=== PATIENT | male | born 1935 | race Hispanic/Latino ===

== ENCOUNTER 2017-09-28 09:38 | Outpatient (CLI) | payer MEDICARE ==
--- NOTE | 2017-09-28 11:44 | Cat Scan Report ---
CT chest without contrast: Chronic lung disease for followup of previously identified pulmonary nodules. Transverse images were performed through the chest with coronal and sagittal 2-D reformatted images. Comparison made to prior exam in October 2016. Subpleural nodule identified on prior examination appears unchanged currently identified on image 47. On image 41 there is a new 9.2 mm right subpleural nodule. No other nodules identified. I do not appreciate nodule involving minor fissure described on prior exam. Significant lower lobe interstitial lung disease is again noted and may be slightly more prominent than seen on prior examination. Bilateral peripheral upper lobe blebs are identified bilaterally being significantly worse on the left. No significant pleural disease. No significant hilar or mediastinal adenopathy. There are coronary vascular and aortic calcifications. These findings are all generally unchanged. Sections carried into the upper abdomen partially identified a gallbladder which contains numerous gallstones as present on prior scan. Impressions: 1. Stable subpleural nodule described on prior exam. 2. New subpleural nodule on current exam. No overtly suspicious characteristics. 3. Chronic interstitial lung disease which may have slightly progressed. 4. Cholelithiasis.
== END 2017-09-28 09:39 | disposition home or self-care (01) ==
LOC: CT 09:38
PROVIDERS: ATTEND Specialist
DX: J84.9 Interstitial pulmonary disease, unspecified (principal); R91.8 Other nonspecific abnormal finding of lung field; K80.20 Calculus of gallbladder without cholecystitis without obstruction; I25.10 Atherosclerotic heart disease of native coronary artery without angina pectoris; I73.9 Peripheral vascular disease, unspecified; I10 Essential (primary) hypertension; E78.5 Hyperlipidemia, unspecified; J44.9 Chronic obstructive pulmonary disease, unspecified; I48.2 Chronic atrial fibrillation; Z87.891 Personal history of nicotine dependence
CPT/HCPCS: 71250

== ENCOUNTER 2017-12-17 04:17 | Emergency (ER) | payer MEDICARE ==
[2017-12-17 05:43] LABS: Basophils % (Auto) 0.4 % (0.0-1.8); Eosinophils # (Auto) 0.1 K/mm3 (0.0-0.4); Eosinophils % (Auto) 1.5 % (0.0-4.3); Hematocrit 40.7 % (35.5-45.6); Hemoglobin 14.1 gm/dl (11.8-15.2); Lymphocytes # (Auto) 1.1 K/mm3 (1.2-5.4); Lymphocytes % (Auto) 11.6 % (13.4-35.0); Mean Corpuscular HGB Conc 35 % (32-34); Mean Corpuscular Hemoglobin 37 pg (28-32); Mean Corpuscular Volume 107 fl (84-94); Monocytes # (Auto) 0.9 K/mm3 (0.0-0.8); Monocytes % (Auto) 9.6 % (0.0-7.3); Platelet Count 229 K/mm3 (140-440); Red Cell Distribution Width 13.8 % (13.2-15.2)
--- NOTE | 2017-12-17 05:58 | XRay Report ---
FINAL REPORT EXAM: XR RIBS UNI W PA CHEST 3+V LT HISTORY: Shortness of breath TECHNIQUE: A portable view of the chest was obtained along with 2 AP views of the ribs. FINDINGS: There is no evidence of acute displaced rib fracture. Heart size is normal. The lungs reveal diffuse interstitial prominence compatible with interstitial fibrosis. There is asymmetric increased parenchymal density in the inferior aspect of the left lung base. Whether this represents asymmetric fibrosis or patchy infiltrate is uncertain. Pleural fluid is not seen. The skeletal structures reveal generalized osteoporosis. IMPRESSION: No evidence of acute displaced rib fracture. Interstitial fibrosis. Asymmetric fibrosis versus patchy infiltrate in the left lung base.
[2017-12-17 06:17] LABS: BUN/Creatinine Ratio 11; Blood Urea Nitrogen 9 mg/dL (9-20); Calcium 8.7 mg/dL (8.4-10.2); Hemolysis Index 9
[2017-12-17] MEDS ORDERED: PROVENTIL IH ONE (06:17)
[2017-12-17] MEDS ORDERED: SUBLIMAZE IV ONE (06:17)
[2017-12-17] MEDS ORDERED: SOLU-Medrol IV ONE (06:17)
[2017-12-17] MEDS ORDERED: ATROVENT IH ONE (06:17)
--- NOTE | 2017-12-17 06:19 | Emergency Department Report ---
ED General Adult HPI - General Chief complaint: Chest Pain Stated complaint: L RIB PAIN Time Seen by Provider: 12/17/17 06:10 Source: patient, family, EMS (ems notes not available at time of chart dictation), RN notes reviewed, old records reviewed Mode of arrival: Stretcher Limitations: Physical Limitation - History of Present Illness Initial comments: Cardiology: Dr Ramirez Pulmonology: Dr Francis Past medical history: Arthritis, atrial fibrillation, on systemic anticoagulation, COPD, oxygen dependent, congestive heart failure This is an 82-year-old gentleman who is not known to this provider previously, who presents to the ER with EMS after mechanical fall. Patient reports being in his usual state of health, had a mechanical trip and fall and landed on his left flank and left chest. Right fall, not having any symptoms. After the fall , having cough, wheezing, shortness of breath and left-sided chest pain. Symptoms constant, worse on palpation, do not radiate anywhere, decreased with rest. Denies headache, neck pain, central chest pain, lower abdominal pain, focal extremity weakness, numbness. Has chronic hyperpigmentation/erythema on the bilateral lower anterior extremities 1 year, chronic lower extremity edema. -: Sudden Location: chest, abdomen Radiation: non-radiation Quality: aching Consistency: other Improves with: other Worsens with: other Associated Symptoms: chest pain, cough, loss of appetite, malaise, shortness of breath, weakness. denies: confusion, diaphoresis, fever/chills, headaches, nausea/vomiting, rash, seizure, syncope - Related Data Home Medications Medication Instructions Recorded Confirmed Last Taken Aspirin [Aspirin BABY CHEW TAB] 81 mg PO ONCE 10/26/13 12/02/16 10/28/16 Budesonide [Pulmicort Respules] 0.5 mg IH BID 10/26/13 12/02/16 Unknown Clopidogrel Bisulfate [Plavix] 75 mg PO DAILY 10/26/13 12/02/16 10/28/16 Ezetimibe [Zetia] 10 mg PO QDAY 10/26/13 12/02/16 10/28/16 Simvastatin [Zocor TAB] 40 mg PO ONCE 10/26/13 12/02/16 10/28/16 Carvedilol [Coreg] 3.125 mg PO BID 10/28/16 12/02/16 10/28/16 Fluticasone [Flonase] 1 spray NS QDAY 10/28/16 12/02/16 10/28/16 Losartan [Cozaar] 50 mg PO QDAY 10/28/16 12/02/16 10/28/16 Previous Rx's Medication Instructions Recorded Last Taken Type Amiodarone [Cordarone 200 MG TAB] 200 mg PO BID #60 tablet 11/02/16 Unknown Rx Furosemide [Lasix TAB] 20 mg PO QDAY #30 tablet 11/02/16 Unknown Rx Loratadine [Claritin] 10 mg PO QDAY #10 tablet 11/02/16 Unknown Rx Prednisone [predniSONE 10 mg 10 mg PO .TAPER #1 tab.ds.pk 11/02/16 Unknown Rx (6-Day Pack, 21 Tabs)] guaiFENesin DM [Robitussin Dm] 10 ml PO Q4H PRN 10 Days oral.liqd 11/02/16 Unknown Rx Clindamycin [Clindamycin CAP] 600 mg PO TID #36 capsule 12/03/16 Unknown Rx Warfarin [Coumadin] 5 mg PO DAILY@1700 tablet 12/03/16 Unknown Rx Acetaminophen [Tylenol Arthritis] 650 mg PO Q6HR PRN #30 tablet.er 12/17/17 Unknown Rx Albuterol Sulfate [Proair 90 mcg IH Q4HR PRN #2 aer.pow.ba 12/17/17 Unknown Rx Respiclick] Ipratropium [place] [Atrovent Hfa] 12.9 gm IH Q4HR #2 hfa.aer.ad 12/17/17 Unknown Rx predniSONE [Deltasone] 40 mg PO QDAY #8 tab 12/17/17 Unknown Rx Allergies Allergy/AdvReac Type Severity Reaction Status Date / Time No Known Allergies Allergy Verified 10/26/13 18:06 ED Review of Systems ROS: Stated complaint: L RIB PAIN Other details as noted in HPI Comment: All other systems reviewed and negative ED Past Medical Hx - Past Medical History Hx Hypertension: Yes Hx Heart Attack/AMI: Yes Hx COPD: Yes - Surgical History Hx Coronary Stent: Yes (x4) Additional Surgical History: right hernia repair x2, left lower vein stripping leg, hemorrhoidectomy x2 - Social History Smoking Status: Never Smoker Substance Use Type: None - Medications Home Medications: Home Medications Medication Instructions Recorded Confirmed Last Taken Type Aspirin [Aspirin BABY CHEW TAB] 81 mg PO ONCE 10/26/13 12/02/16 10/28/16 History Budesonide [Pulmicort Respules] 0.5 mg IH BID 10/26/13 12/02/16 Unknown History Clopidogrel Bisulfate [Plavix] 75 mg PO DAILY 10/26/13 12/02/16 10/28/16 History Ezetimibe [Zetia] 10 mg PO QDAY 10/26/13 12/02/16 10/28/16 History Simvastatin [Zocor TAB] 40 mg PO ONCE 10/26/13 12/02/16 10/28/16 History Carvedilol [Coreg] 3.125 mg PO BID 10/28/16 12/02/16 10/28/16 History Fluticasone [Flonase] 1 spray NS QDAY 10/28/16 12/02/16 10/28/16 History Losartan [Cozaar] 50 mg PO QDAY 10/28/16 12/02/16 10/28/16 History Amiodarone [Cordarone 200 MG TAB] 200 mg PO BID #60 tablet 11/02/16 12/02/16 Unknown Rx Furosemide [Lasix TAB] 20 mg PO QDAY #30 tablet 11/02/16 12/02/16 Unknown Rx Loratadine [Claritin] 10 mg PO QDAY #10 tablet 11/02/16 12/02/16 Unknown Rx Prednisone [predniSONE 10 mg 10 mg PO .TAPER #1 tab.ds.pk 11/02/16 12/02/16 Unknown Rx (6-Day Pack, 21 Tabs)] guaiFENesin DM [Robitussin Dm] 10 ml PO Q4H PRN 10 Days oral.liqd 11/02/1603/08 Unknown Rx Clindamycin [Clindamycin CAP] 600 mg PO TID #36 capsule 12/03/16 Unknown Rx Warfarin [Coumadin] 5 mg PO DAILY@1700 tablet 12/03/16 Unknown Rx Acetaminophen [Tylenol Arthritis] 650 mg PO Q6HR PRN #30 tablet.er 12/17/17 Unknown Rx Albuterol Sulfate [Proair 90 mcg IH Q4HR PRN #2 aer.pow.ba 12/17/17 Unknown Rx Respiclick] Ipratropium [place] [Atrovent Hfa] 12.9 gm IH Q4HR #2 hfa.aer.ad 12/17/17 Unknown Rx predniSONE [Deltasone] 40 mg PO QDAY #8 tab 12/17/17 Unknown Rx ED Physical Exam - General Limitations: Physical Limitation General appearance: alert, in distress - Head Head exam: Present: atraumatic, normocephalic - Eye Eye exam: Present: normal appearance, EOMI. Absent: nystagmus - ENT ENT exam: Present: normal exam, normal orophraynx, mucous membranes moist - Neck Neck exam: Present: normal inspection, full ROM - Respiratory Respiratory exam: Present: respiratory distress, wheezes, rhonchi, chest wall tenderness - Cardiovascular Cardiovascular Exam: Present: regular rate, irregular rhythm, normal heart sounds. Absent: systolic murmur, diastolic murmur, rubs, gallop - GI/Abdominal GI/Abdominal exam: Present: soft, tenderness, other (left upper quadrant, tender ). Absent: distended, guarding, rebound, rigid, pulsatile mass - Rectal Rectal exam: Present: deferred - Extremities Exam Extremities exam: Present: full ROM, pedal edema, other (2+ pulses noted in the bilateral upper, lower extremities. Compartments soft. No long bony tenderness. The pelvis is stable.). Absent: normal inspection, tenderness, calf tenderness - Back Exam Back exam: Present: normal inspection, full ROM. Absent: tenderness, CVA tenderness (R), paraspinal tenderness, vertebral tenderness - Neurological Exam Neurological exam: Present: alert, oriented X3, CN II-XII intact, other ( Extraocular movements intact. Tongue midline. No facial droop. Facial sensation intact to light touch in the V1, V2, V3 distribution bilaterally. 5 and 5 strength in 4 extremities.. Sensation is intact to light touch in 4 extremities.). Absent: motor sensory deficit - Psychiatric Psychiatric exam: Present: normal affect, normal mood - Skin Skin exam: Present: warm, rash, erythema (erythema noted on the anterior lower anterior tibial regions, nontender. Compartments soft.) ED Course Vital Signs 12/17/17 12/17/17 12/17/17 04:14 04:16 04:20 Temperature Pulse Rate 91 H Pulse Rate [ Anterior Bilateral Throughout] Respiratory 25 H 20 Rate Respiratory Rate [Anterior Bilateral Throughout] Blood Pressure O2 Sat by Pulse 86 100 Oximetry 12/17/17 12/17/17 12/17/17 04:30 04:46 04:58 Temperature 98.6 F Pulse Rate 88 90 88 Pulse Rate [ Anterior Bilateral Throughout] Respiratory 25 H 14 16 Rate Respiratory Rate [Anterior Bilateral Throughout] Blood Pressure 127/62 127/62 127/62 O2 Sat by Pulse 95 97 96 Oximetry 12/17/17 12/17/17 12/17/17 05:00 05:16 05:30 Temperature Pulse Rate 92 H 93 H 90 Pulse Rate [ Anterior Bilateral Throughout] Respiratory 18 27 H 24 Rate Respiratory Rate [Anterior Bilateral Throughout] Blood Pressure 127/62 124/61 127/62 O2 Sat by Pulse 96 96 95 Oximetry 12/17/17 12/17/17 12/17/17 05:46 06:00 06:16 Temperature Pulse Rate 92 H 91 H 99 H Pulse Rate [ Anterior Bilateral Throughout] Respiratory 27 H 24 23 Rate Respiratory Rate [Anterior Bilateral Throughout] Blood Pressure 124/61 134/66 134/66 O2 Sat by Pulse 97 96 96 Oximetry 12/17/17 12/17/17 12/17/17 06:30 06:39 06:46 Temperature Pulse Rate 94 H 93 H Pulse Rate [ 93 H Anterior Bilateral Throughout] Respiratory 25 H 25 H Rate Respiratory 25 H Rate [Anterior Bilateral Throughout] Blood Pressure 134/66 134/66 O2 Sat by Pulse 97 94 Oximetry 12/17/17 12/17/17 12/17/17 08:04 08:05 08:11 Temperature 98.4 F Pulse Rate 100 H 100 H Pulse Rate [ Anterior Bilateral Throughout] Respiratory 26 H Rate Respiratory Rate [Anterior Bilateral Throughout] Blood Pressure 134/66 O2 Sat by Pulse 93 Oximetry 12/17/17 09:00 Temperature Pulse Rate 101 H Pulse Rate [ Anterior Bilateral Throughout] Respiratory 27 H Rate Respiratory Rate [Anterior Bilateral Throughout] Blood Pressure 134/60 O2 Sat by Pulse 91 Oximetry - Reevaluation(s) Reevaluation #1: 12/17/17 07:04 Differential diagnosis, including not limited to: Intracranial injury, intrathoracic injury, intra-abdominal injury, pulmonary contusion, COPD exacerbation Blunt cardiac injury Assessment and plan: 82-year-old gentleman with multiple medical comorbidities with mechanical fall, also on systemic anticoagulation. Has left-sided hemithorax tenderness, left upper quadrant tenderness and is wheezing. May have a pulmonary contusion. Clinically sober at this time. Patient will be treated with pain medication, albuterol, Atrovent, steroids, noncontrast CT scan of the brain is pending, CT scan of the chest, abdomen, pelvis pending. We will reassess. Patient is clinically sober at this time. The cervical spine is cleared through nexus and omani c spine rule Reevaluation #2: 12/17/17 08:50 CT scan of the brain is negative. CT scan of the chest is negative for acute findings. Incidentally found to have a right upper lobe nodule, which has increased in size, the patient can follow-up with outpatient patient relations specialist. A CT scan of the abdomen and pelvis is negative for acute traumatic disease. Chronic findings noted. On his repeat examination he indicates his pain is improved and his wheezing is improved. I have had an extensive discussion with the patient and family. Family feels comfortable to take the patient home. Given his improvement in wheezing and improvement in pain, given that family endorses that there are reliable and felt comfortable to take the patient home, I think a trial of outpatient management is appropriate at this time. Risks of hospitalization were discussed with patient and family, including fall, delirium, DVT, hospital- acquired infection/diarrhea, and it is my opinion that these risks outweigh potential benefits. Patient will benefit from a immobilization,, ambulation as tolerated, and nebulizer therapy. He is suitable to be discharged at this point in time, with close outpatient follow-up. Reevaluation #3: 12/17/17 09:40 Awaiting transportation. No respiratory distress. Vital signs remained appropriate. ED Medical Decision Making - Lab Data Result diagrams: 12/17/17 05:17 12/17/17 05:17 Vital Signs 12/17/17 12/17/17 12/17/17 04:14 04:16 04:20 Temperature Pulse Rate 91 H Pulse Rate [ Anterior Bilateral Throughout] Respiratory 25 H 16 Rate Respiratory Rate [Anterior Bilateral Throughout] Blood Pressure O2 Sat by Pulse 86 100 Oximetry 12/17/17 12/17/17 12/17/17 04:30 04:46 04:58 Temperature 98.6 F Pulse Rate 88 90 88 Pulse Rate [ Anterior Bilateral Throughout] Respiratory 25 H 14 16 Rate Respiratory Rate [Anterior Bilateral Throughout] Blood Pressure 127/62 127/62 127/62 O2 Sat by Pulse 95 97 96 Oximetry 12/17/17 12/17/17 12/17/17 05:00 05:16 05:30 Temperature Pulse Rate 92 H 93 H 90 Pulse Rate [ Anterior Bilateral Throughout] Respiratory 18 27 H 24 Rate Respiratory Rate [Anterior Bilateral Throughout] Blood Pressure 127/62 124/61 127/62 O2 Sat by Pulse 96 96 95 Oximetry 12/17/17 12/17/17 12/17/17 05:46 06:00 06:16 Temperature Pulse Rate 92 H 91 H 99 H Pulse Rate [ Anterior Bilateral Throughout] Respiratory 27 H 24 23 Rate Respiratory Rate [Anterior Bilateral Throughout] Blood Pressure 124/61 134/66 134/66 O2 Sat by Pulse 97 96 96 Oximetry 12/17/17 12/17/17 12/17/17 06:30 06:39 06:46 Temperature Pulse Rate 94 H 93 H Pulse Rate [ 93 H Anterior Bilateral Throughout] Respiratory 25 H 25 H Rate Respiratory 25 H Rate [Anterior Bilateral Throughout] Blood Pressure 134/66 134/66 O2 Sat by Pulse 97 94 Oximetry Labs 12/17/17 12/17/17 12/17/17 05:17 05:17 05:18 WBC 9.5 RBC 3.80 Hgb 14.1 Hct 40.7 MCV 107 H MCH 37 H MCHC 35 H RDW 13.8 Plt Count 229 Lymph % (Auto) 11.6 L [place] % (Auto) 9.6 H Eos % (Auto) 1.5 Baso % (Auto) 0.4 Lymph # 1.1 L [place] # 0.9 H Eos # 0.1 Baso # 0.0 Seg Neutrophils % 76.9 H Seg Neutrophils # 7.3 PT 15.4 H INR 1.17 H APTT 30.8 Sodium 130 L Potassium 4.3 Chloride 94.3 L Carbon Dioxide 21 L Anion Gap 19 BUN 9 Creatinine 0.8 Estimated GFR > 60 BUN/Creatinine Ratio 11 Glucose 101 H Calcium 8.7 Troponin T < 0.010 - EKG Data -: EKG Interpreted by Mi Rate: normal - EKG Data 12/17/17 07:07 Atrial fibrillation, normal axis, QTC prolonged, motion artifact, not having a STEMI - Radiology Data Radiology results: report reviewed, image reviewed X-ray of the pelvis is negative for acute disease, DJD is noted. X-ray the chest is negative for acute disease. Noncontrast CT scan of the brain is negative for acute disease. Chronic findings noted. Critical care attestation.: If time is entered above; I have spent that time in minutes in the direct care of this critically ill patient, excluding procedure time. ED Disposition Clinical Impression: COPD exacerbation, Chest wall pain Disposition: DC- TO HOME OR SELFCARE Is pt being admited?: No Does the pt Need Aspirin: No Condition: Stable Instructions: Chest Pain (ED), Chronic Bronchitis (ED) Additional Instructions: Pain typically gets worse before it gets better after a mechanical fall. Take pain medication as needed/directed. Take the albuterol, Atrovent, steroids as directed. CT scan of the chest demonstrated a right upper lung nodule which appears increased in size compared to a prior CT scan. Follow up with her primary care doctor for this or patient relations specialist within the next month. Not following up as recommended may result an undiagnosed tumor, cancer, malignancy. Return to the ER right away with new pain, worsened pain, migration of pain, projectile vomiting, change in mental status, confusion, inability to tolerate liquid feeds. Prescriptions: Acetaminophen [Tylenol Arthritis] 650 mg PO Q6HR PRN #30 tablet.er PRN Reason: Pain Albuterol Sulfate [Proair Respiclick] 90 mcg IH Q4HR PRN #2 aer.pow.ba PRN Reason: Wheezing Ipratropium [place] [Atrovent Hfa] 12.9 gm IH Q4HR #2 hfa.aer.ad predniSONE [Deltasone] 40 mg PO QDAY #8 tab Referrals: ROGELIO FRANCIS MD [Staff Physician] - 3-5 Days
--- NOTE | 2017-12-17 06:50 | XRay Report ---
FINAL REPORT EXAM: XR PELVIS 1-2V HISTORY: fall lge pain TECHNIQUE: An AP view of the pelvis was submitted. FINDINGS: There is osteoporosis. There is severe narrowing of the right hip joint. The left hip joint and SI joints appear intact. The bony pelvic ring is intact. There is no evidence of fracture. There is disc degeneration in the lower lumbar spine. The soft tissues are unremarkable. IMPRESSION: Osteoporosis. Severe arthritic changes the right hip joint. No evidence of acute fracture of the bony pelvis.
[2017-12-17] MEDS ORDERED: NACL 0.9% 50 ML ONE (06:52)
[2017-12-17 06:56] LABS: INR 1.17 (0.87-1.13)
[2017-12-17 06:57] LABS: Partial Thromboplastin Time 30.8 Sec. (24.2-36.6)
--- NOTE | 2017-12-17 07:49 | Cat Scan Report ---
FINAL REPORT EXAM: CT HEAD/BRAIN WO CON HISTORY: fall on eliquis TECHNIQUE: CT imaging is acquired through the brain without contrast. Transaxial reformations are provided. PRIORS: None. FINDINGS: Ventricles and CSF spaces are proportionately enlarged, consistent with parenchymal atrophy. Scattered deep and subcortical white matter hypodense foci are confluent in some areas and are compatible with microvascular angiopathy. No acute intracranial hemorrhage or mass effect. No skull fracture. No significant abnormality within the imaged paranasal sinuses or mastoid air cells. IMPRESSION: No acute intracranial abnormality. There are chronic sequela of atrophy and microvascular angiopathy.
--- NOTE | 2017-12-17 08:13 | Cat Scan Report ---
FINAL REPORT EXAM: CT ANGIO CHEST HISTORY: fall on eliquis, chest wall pain TECHNIQUE: CT imaging obtained through the chest in pulmonary angiographic phase following intravenous administration of contrast. Transaxial, Coronal and sagittal reformats with maximal intensity projections are provided. PRIORS: 11/01/2016 FINDINGS: Normal caliber main pulmonary artery. Well opacified pulmonary arterial tree. No pulmonary embolism. Cardiomegaly. Coronary artery disease. No pericardial effusion. Thoracic aorta is normal in course and caliber. No periaortic fluid or stranding. No pneumothorax or effusion. Bullous emphysema with confluence of the air spaces in the left upper lung mimics appearance of pneumothorax. Findings are worse compared to prior. Lingular and bibasilar honeycombing is present with reticulation and mild cylindrical bronchiectasis. Central airways are patent. A right upper lung 9 millimeters subpleural nodule on axial series 2, image 44 appears increased in size compared to prior. Please see CT abdomen and pelvis of the same date. The superficial soft tissues are unremarkable. No acute bony abnormality or worrisome osseous lesions identified. Old lower right posterior rib fracture deformities. IMPRESSION: No pulmonary embolism or other acute finding. No acute fracture. Old lower right posterior rib fracture deformities are noted. A 9 millimeter subpleural right upper lung nodule appears increased in size compared to 11/01/2016 (previously 5 millimeters in greatest dimension, as measured today.) Pulmonology consultation is recommended if follow-up is not already established. 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 Please see CT abdomen and pelvis of the same date.
--- NOTE | 2017-12-17 08:24 | Cat Scan Report ---
FINAL REPORT EXAM: CT ABDOMEN PELVIS W CON HISTORY: fall on eliquis TECHNIQUE: CT images are acquired through the Abdomen and Pelvis in late arterial and delayed phases following intravenous administration of contrast. Transaxial, coronal and sagittal reformations are provided. PRIORS: None FINDINGS: Partially imaged intrathoracic contents are remarkable for coronary artery disease and findings of pulmonary fibrosis. Please see CT chest of the same date. Subcentimeter cholelithiasis layering in the neck of the gallbladder. No pericholecystic inflammatory findings. The liver, pancreas, spleen and adrenal glands are unremarkable. Kidneys show no worrisome lesions, hydronephrosis, or definite calculi. Multiple punctate renal vascular calcifications are noted. The ureters are normal in course and caliber. No stones in the urinary bladder. No free fluid in the pelvis. Urinary bladder is unremarkable. Small and large bowel are normal in caliber. Appendix is normal. No free air, free fluid, or lymphadenopathy identified. Aorta is normal in course and caliber with densely scattered atherosclerosis. Superficial soft tissues are remarkable for a small fat containing left inguinal hernia. Moderate right hip osteoarthritis. There is a right femoral head 17 millimeter subchondral cyst versus partially collapsed low grade osteochondral lesion on coronal image 95. IMPRESSION: No acute skeletal finding. Multiple old posterior right lower rib fracture deformities. Moderate right hip osteoarthritis. No acute findings in the abdomen or pelvis. Please see CT chest of the same date. Cholelithiasis.
[2017-12-17 09:07] VITALS: BP 134/60
== END 2017-12-17 10:05 | disposition home or self-care (01) ==
LOC: ED 04:17
DX: J44.1 Chronic obstructive pulmonary disease with (acute) exacerbation (principal); I10 Essential (primary) hypertension; I21.9 Acute myocardial infarction, unspecified; Z79.82 Long term (current) use of aspirin
CPT/HCPCS: 36415; 70450; 71101; 71275; 72170; 74177; 80048; 82550; 83880; 84484; 85025; 85610; 85730; 93005; 93010; 96374; 96375; 99285; J2930; J3010; Q9967

== ENCOUNTER 2017-12-29 11:34 | Emergency (ER) | payer MEDICARE ==
[2017-12-29] MEDS ORDERED: NACL 0.9% 1000 ML 1,000 ML IV ONE (12:49)
[2017-12-29 13:16] LABS: Hematocrit 41.8 % (35.5-45.6); Hemoglobin 14.4 gm/dl (11.8-15.2); Mean Corpuscular HGB Conc 35 % (32-34); Mean Corpuscular Hemoglobin 37 pg (28-32); Mean Corpuscular Volume 107 fl (84-94); Platelet Count 265 K/mm3 (140-440); Red Blood Count 3.91 M/mm3 (3.65-5.03); Red Cell Distribution Width 13.8 % (13.2-15.2)
[2017-12-29] MEDS ORDERED: MORPHINE IV ONE (13:32)
[2017-12-29] MEDS ORDERED: ZOFRAN IM ONE (13:32)
[2017-12-29 13:38] LABS: Alanine Aminotransferase 36 units/L (7-56); BUN/Creatinine Ratio 9; Blood Urea Nitrogen 7 mg/dL (9-20); Calcium 8.9 mg/dL (8.4-10.2); Hemolysis Index 12
[2017-12-29 13:51] LABS: INR 1.2 (0.87-1.13)
[2017-12-29 13:52] LABS: Partial Thromboplastin Time 32.9 Sec. (24.2-36.6)
--- NOTE | 2017-12-29 14:08 | Emergency Department Report ---
ED Abdominal Pain HPI - General Chief Complaint: Abdominal Pain Stated Complaint: S.O.B Time Seen by Provider: 12/29/17 13:01 Source: patient Mode of arrival: Ambulatory Limitations: No Limitations - History of Present Illness Initial Comments: Patient presents to the emergency department with chief complaint of abdominal pain with nausea and vomiting for the last week and a half. Patient also complains that he has not had a bowel movement or passed gas in several days. He states that his abdomen is increasingly gotten larger and is not sure why. Patient denies taking any narcotic pain medicine at home. -: Gradual Location: diffuse Radiation: none Migration to: no migration Severity scale (0 -10): 8 Quality: cramping Consistency: constant Improves With: nothing Worsens With: nothing Associated Symptoms: denies other symptoms - Related Data Home Medications Medication Instructions Recorded Confirmed Last Taken Aspirin [Aspirin BABY CHEW TAB] 81 mg PO ONCE 10/26/13 12/02/16 10/28/16 Budesonide [Pulmicort Respules] 0.5 mg IH BID 10/26/13 12/02/16 Unknown Clopidogrel Bisulfate [Plavix] 75 mg PO DAILY 10/26/13 12/02/16 10/28/16 Ezetimibe [Zetia] 10 mg PO QDAY 10/26/13 12/02/16 10/28/16 Simvastatin [Zocor TAB] 40 mg PO ONCE 10/26/13 12/02/16 10/28/16 Carvedilol [Coreg] 3.125 mg PO BID 10/28/16 12/02/16 10/28/16 Fluticasone [Flonase] 1 spray NS QDAY 10/28/16 12/02/16 10/28/16 Losartan [Cozaar] 50 mg PO QDAY 10/28/16 12/02/16 10/28/16 Previous Rx's Medication Instructions Recorded Last Taken Type Amiodarone [Cordarone 200 MG TAB] 200 mg PO BID #60 tablet 11/02/16 Unknown Rx Furosemide [Lasix TAB] 20 mg PO QDAY #30 tablet 11/02/16 Unknown Rx Loratadine [Claritin] 10 mg PO QDAY #10 tablet 11/02/16 Unknown Rx Prednisone [predniSONE 10 mg 10 mg PO .TAPER #1 tab.ds.pk 11/02/16 Unknown Rx (6-Day Pack, 21 Tabs)] guaiFENesin DM [Robitussin Dm] 10 ml PO Q4H PRN 10 Days oral.liqd 11/02/16 Unknown Rx Clindamycin [Clindamycin CAP] 600 mg PO TID #36 capsule 12/03/16 Unknown Rx Warfarin [Coumadin] 5 mg PO DAILY@1700 tablet 12/03/16 Unknown Rx Acetaminophen [Tylenol Arthritis] 650 mg PO Q6HR PRN #30 tablet.er 12/17/17 Unknown Rx Albuterol Sulfate [Proair 90 mcg IH Q4HR PRN #2 aer.pow.ba 12/17/17 Unknown Rx Respiclick] Ipratropium [place] [Atrovent Hfa] 12.9 gm IH Q4HR #2 hfa.aer.ad 12/17/17 Unknown Rx Lidocaine [Lidoderm] 1 each TP QDAY #5 adh..patch 12/17/17 Unknown Rx predniSONE [Deltasone] 40 mg PO QDAY #8 tab 12/17/17 Unknown Rx Allergies Allergy/AdvReac Type Severity Reaction Status Date / Time No Known Allergies Allergy Verified 10/26/13 18:06 ED Review of Systems ROS: Stated complaint: S.O.B Other details as noted in HPI Constitutional: denies: chills, fever Eyes: denies: eye pain, eye discharge, vision change ENT: denies: ear pain, throat pain Respiratory: denies: cough, shortness of breath, wheezing Cardiovascular: denies: chest pain, palpitations Endocrine: no symptoms reported Gastrointestinal: abdominal pain. denies: nausea, diarrhea Genitourinary: denies: urgency, dysuria Musculoskeletal: denies: back pain, joint swelling, arthralgia Skin: denies: rash, lesions Neurological: denies: headache, weakness, paresthesias Psychiatric: denies: anxiety, depression Hematological/Lymphatic: denies: easy bleeding, easy bruising ED Past Medical Hx - Past Medical History Hx Hypertension: Yes Hx Heart Attack/AMI: Yes Hx COPD: Yes - Surgical History Hx Coronary Stent: Yes (x4) Additional Surgical History: right hernia repair x2, left lower vein stripping leg, hemorrhoidectomy x2 - Social History Smoking Status: Never Smoker Substance Use Type: Alcohol - Medications Home Medications: Home Medications Medication Instructions Recorded Confirmed Last Taken Type Aspirin [Aspirin BABY CHEW TAB] 81 mg PO ONCE 10/26/13 12/02/16 10/28/16 History Budesonide [Pulmicort Respules] 0.5 mg IH BID 10/26/13 12/02/16 Unknown History Clopidogrel Bisulfate [Plavix] 75 mg PO DAILY 10/26/13 12/02/16 10/28/16 History Ezetimibe [Zetia] 10 mg PO QDAY 10/26/13 12/02/16 10/28/16 History Simvastatin [Zocor TAB] 40 mg PO ONCE 10/26/13 12/02/16 10/28/16 History Carvedilol [Coreg] 3.125 mg PO BID 10/28/16 12/02/16 10/28/16 History Fluticasone [Flonase] 1 spray NS QDAY 10/28/16 12/02/16 10/28/16 History Losartan [Cozaar] 50 mg PO QDAY 10/28/16 12/02/16 10/28/16 History Amiodarone [Cordarone 200 MG TAB] 200 mg PO BID #60 tablet 11/02/16 12/02/16 Unknown Rx Furosemide [Lasix TAB] 20 mg PO QDAY #30 tablet 11/02/16 12/02/16 Unknown Rx Loratadine [Claritin] 10 mg PO QDAY #10 tablet 11/02/16 12/02/16 Unknown Rx Prednisone [predniSONE 10 mg 10 mg PO .TAPER #1 tab.ds.pk 11/02/16 12/02/16 Unknown Rx (6-Day Pack, 21 Tabs)] guaiFENesin DM [Robitussin Dm] 10 ml PO Q4H PRN 10 Days oral.liqd 11/02/1603/08 Unknown Rx Clindamycin [Clindamycin CAP] 600 mg PO TID #36 capsule 12/03/16 Unknown Rx Warfarin [Coumadin] 5 mg PO DAILY@1700 tablet 12/03/16 Unknown Rx Acetaminophen [Tylenol Arthritis] 650 mg PO Q6HR PRN #30 tablet.er 12/17/17 Unknown Rx Albuterol Sulfate [Proair 90 mcg IH Q4HR PRN #2 aer.pow.ba 12/17/17 Unknown Rx Respiclick] Ipratropium [place] [Atrovent Hfa] 12.9 gm IH Q4HR #2 hfa.aer.ad 12/17/17 Unknown Rx Lidocaine [Lidoderm] 1 each TP QDAY #5 adh..patch 12/17/17 Unknown Rx predniSONE [Deltasone] 40 mg PO QDAY #8 tab 12/17/17 Unknown Rx ED Physical Exam - General Limitations: No Limitations General appearance: alert, in no apparent distress - Head Head exam: Present: atraumatic, normocephalic - Eye Eye exam: Present: normal appearance, PERRL, EOMI - ENT ENT exam: Present: mucous membranes moist - Neck Neck exam: Present: normal inspection - Respiratory Respiratory exam: Present: normal lung sounds bilaterally. Absent: respiratory distress, wheezes, rales, rhonchi - Cardiovascular Cardiovascular Exam: Present: regular rate, normal rhythm. Absent: systolic murmur, diastolic murmur, rubs, gallop - GI/Abdominal GI/Abdominal exam: Present: soft, distended, tenderness (diffusely tender to palpation), normal bowel sounds, other (dullness to percussion throughout) - Rectal Rectal exam: Present: deferred - Extremities Exam Extremities exam: Present: normal inspection - Back Exam Back exam: Present: normal inspection - Neurological Exam Neurological exam: Present: alert, oriented X3, CN II-XII intact. Absent: motor sensory deficit - Psychiatric Psychiatric exam: Present: normal affect, normal mood - Skin Skin exam: Present: warm, dry, intact, normal color. Absent: rash ED Course Vital Signs 12/29/17 12/29/17 12/29/17 12:41 13:05 13:16 Temperature 98.2 F Pulse Rate 102 H 87 Respiratory 20 21 Rate Blood Pressure 125/61 148/79 O2 Sat by Pulse 98 99 96 Oximetry 12/29/17 12/29/17 12/29/17 13:30 13:46 14:20 Temperature Pulse Rate 89 85 86 Respiratory 22 23 25 H Rate Blood Pressure 148/79 154/72 154/72 O2 Sat by Pulse 97 96 94 Oximetry ED Medical Decision Making - Lab Data Result diagrams: 12/29/17 13:02 12/29/17 13:00 Lab Results 12/29/17 12/29/17 12/29/17 Range/Units 13:00 13:00 13:02 WBC 10.0 (4.5-11.0) K/mm3 RBC 3.91 (3.65-5.03) M/mm3 Hgb 14.4 (11.8-15.2) gm/dl Hct 41.8 (35.5-45.6) % MCV 107 H (84-94) fl MCH 37 H (28-32) pg MCHC 35 H (32-34) % RDW 13.8 (13.2-15.2) % Plt Count 265 (140-440) K/mm3 Add Manual Diff Complete Total Counted 100 Seg Neuts % (Manual) 70.0 (40.0-70.0) % Band Neutrophils % 0 % Lymphocytes % (Manual) 19.0 (13.4-35.0) % Reactive Lymphs % (Man) 0 % Monocytes % (Manual) 10.0 H (0.0-7.3) % Eosinophils % (Manual) 1.0 (0.0-4.3) % Basophils % (Manual) 0 (0.0-1.8) % Metamyelocytes % 0 % Myelocytes % 0 % Promyelocytes % 0 % Blast Cells % 0 % Nucleated RBC % Not Reportable Seg Neutrophils # Man 7.0 (1.8-7.7) K/mm3 Band Neutrophils # 0.0 K/mm3 Lymphocytes # (Manual) 1.9 (1.2-5.4) K/mm3 Abs React Lymphs (Man) 0.0 K/mm3 Monocytes # (Manual) 1.0 H (0.0-0.8) K/mm3 Eosinophils # (Manual) 0.1 (0.0-0.4) K/mm3 Basophils # (Manual) 0.0 (0.0-0.1) K/mm3 Metamyelocytes # 0.0 K/mm3 Myelocytes # 0.0 K/mm3 Promyelocytes # 0.0 K/mm3 Blast Cells # 0.0 K/mm3 WBC Morphology Not Reportable Hypersegmented Neuts Not Reportable Hyposegmented Neuts Not Reportable Hypogranular Neuts Not Reportable Smudge Cells Not Reportable Toxic Granulation Not Reportable Toxic Vacuolation Not Reportable Dohle Bodies Not Reportable Pelger-Huet Anomaly Not Reportable Erick Rods Not Reportable Platelet Estimate Appears normal Clumped Platelets Not Reportable Plt Clumps, EDTA Not Reportable Large Platelets Not Reportable Giant Platelets Not Reportable Platelet Satelliting Not Reportable Plt Morphology Comment Not Reportable RBC Morphology Normal Dimorphic RBCs Not Reportable Polychromasia Not Reportable Hypochromasia Not Reportable Poikilocytosis Not Reportable Anisocytosis Not Reportable Microcytosis Not Reportable Macrocytosis Not Reportable Spherocytes Not Reportable Pappenheimer Bodies Not Reportable Sickle Cells Not Reportable Target Cells Not Reportable Tear Drop Cells Not Reportable Ovalocytes Not Reportable Helmet Cells Not Reportable Baldwin-[place] Bodies Not Reportable [place] Rings Not Reportable [place]hely Cells Not Reportable Bite Cells Not Reportable Crenated Cell Not Reportable Elliptocytes Not Reportable Acanthocytes (Spur) Not Reportable Rouleaux Not Reportable Hemoglobin C Crystals Not Reportable Schistocytes Not Reportable Malaria parasites Not Reportable Colin Bodies Not Reportable Hem Pathologist Commnt No PT (12.2-14.9) Sec. INR (0.87-1.13) APTT (24.2-36.6) Sec. Sodium 131 L (137-145) mmol/L Potassium 4.0 (3.6-5.0) mmol/L Chloride 92.2 L (98-107) mmol/L Carbon Dioxide 25 (22-30) mmol/L Anion Gap 18 mmol/L BUN 7 L (9-20) mg/dL Creatinine 0.8 (0.8-1.5) mg/dL Estimated GFR > 60 ml/min BUN/Creatinine Ratio 9 % Glucose 76 (75-100) mg/dL Calcium 8.9 (8.4-10.2) mg/dL Total Bilirubin 0.60 (0.1-1.2) mg/dL AST 29 (5-40) units/L ALT 36 (7-56) units/L Alkaline Phosphatase 94 (35-129) units/L Total Protein 7.1 (6.3-8.2) g/dL Albumin 4.0 (3.9-5) g/dL Albumin/Globulin Ratio 1.3 % Lipase 3 L (13-60) units/L Urine Color (Yellow) Urine Turbidity (Clear) Urine pH (5.0-7.0) Ur Specific [place] (1.003-1.030) Urine Protein (Negative) mg/dL Urine Glucose (UA) (Negative) mg/dL Urine Ketones (Negative) mg/dL Urine Blood (Negative) Urine Nitrite (Negative) Urine Bilirubin (Negative) Urine Urobilinogen (<2.0) mg/dL Ur Leukocyte Esterase (Negative) Urine WBC (Auto) (0.0-6.0) /HPF Urine RBC (Auto) (0.0-6.0) /HPF 12/29/17 12/29/17 Range/Units 13:33 15:26 WBC (4.5-11.0) K/mm3 RBC (3.65-5.03) M/mm3 Hgb (11.8-15.2) gm/dl Hct (35.5-45.6) % MCV (84-94) fl MCH (28-32) pg MCHC (32-34) % RDW (13.2-15.2) % Plt Count (140-440) K/mm3 Add Manual Diff Total Counted Seg Neuts % (Manual) (40.0-70.0) % Band Neutrophils % % Lymphocytes % (Manual) (13.4-35.0) % Reactive Lymphs % (Man) % Monocytes % (Manual) (0.0-7.3) % Eosinophils % (Manual) (0.0-4.3) % Basophils % (Manual) (0.0-1.8) % Metamyelocytes % % Myelocytes % % Promyelocytes % % Blast Cells % % Nucleated RBC % Seg Neutrophils # Man (1.8-7.7) K/mm3 Band Neutrophils # K/mm3 Lymphocytes # (Manual) (1.2-5.4) K/mm3 Abs React Lymphs (Man) K/mm3 Monocytes # (Manual) (0.0-0.8) K/mm3 Eosinophils # (Manual) (0.0-0.4) K/mm3 Basophils # (Manual) (0.0-0.1) K/mm3 Metamyelocytes # K/mm3 Myelocytes # K/mm3 Promyelocytes # K/mm3 Blast Cells # K/mm3 WBC Morphology Hypersegmented Neuts Hyposegmented Neuts Hypogranular Neuts Smudge Cells Toxic Granulation Toxic Vacuolation Dohle Bodies Pelger-Huet Anomaly Erick Rods Platelet Estimate Clumped Platelets Plt Clumps, EDTA Large Platelets Giant Platelets Platelet Satelliting Plt Morphology Comment RBC Morphology Dimorphic RBCs Polychromasia Hypochromasia Poikilocytosis Anisocytosis Microcytosis Macrocytosis Spherocytes Pappenheimer Bodies Sickle Cells Target Cells Tear Drop Cells Ovalocytes Helmet Cells Baldwin-[place] Bodies [place] Rings [place] Cells Bite Cells Crenated Cell Elliptocytes Acanthocytes (Spur) Rouleaux Hemoglobin C Crystals Schistocytes Malaria parasites Colin Bodies Hem Pathologist Commnt PT 15.7 H (12.2-14.9) Sec. INR 1.20 H (0.87-1.13) APTT 32.9 (24.2-36.6) Sec. Sodium (137-145) mmol/L Potassium (3.6-5.0) mmol/L Chloride (98-107) mmol/L Carbon Dioxide (22-30) mmol/L Anion Gap mmol/L BUN (9-20) mg/dL Creatinine (0.8-1.5) mg/dL Estimated GFR ml/min BUN/Creatinine Ratio % Glucose (75-100) mg/dL Calcium (8.4-10.2) mg/dL Total Bilirubin (0.1-1.2) mg/dL AST (5-40) units/L ALT (7-56) units/L Alkaline Phosphatase (35-129) units/L Total Protein (6.3-8.2) g/dL Albumin (3.9-5) g/dL Albumin/Globulin Ratio % Lipase (13-60) units/L Urine Color Straw (Yellow) Urine Turbidity Clear (Clear) Urine pH 6.0 (5.0-7.0) Ur Specific [place] 1.003 (1.003-1.030) Urine Protein <15 mg/dl (Negative) mg/dL Urine Glucose (UA) Neg (Negative) mg/dL Urine Ketones Neg (Negative) mg/dL Urine Blood Neg (Negative) Urine Nitrite Neg (Negative) Urine Bilirubin Neg (Negative) Urine Urobilinogen < 2.0 (<2.0) mg/dL Ur Leukocyte Esterase Neg (Negative) Urine WBC (Auto) < 1.0 (0.0-6.0) /HPF Urine RBC (Auto) < 1.0 (0.0-6.0) /HPF - Radiology Data Referring Physician: ANMOL PARIKH Patient Name: NELLY ROQUE Date of : 1935 Sex: Male Report Date: 2017-12-29 Report Status: Finalized [facility] [address] [place] [address] Cat Scan Report Signed Patient: NELLY ROQUE MR#: [id number] : 1935 Acct:[id number] Age/Sex: 82 / M ADM Date: 12/29/17 Loc: ED Attending Dr: Ordering Physician: ANMOL PARIKH MD Date of Service: 12/29/17 Procedure(s): CT abdomen pelvis wo con Accession Number(s): [id number] cc: ANMOL PARIKH MD CT ABDOMEN PELVIS WITHOUT CONTRAST: HISTORY: abdominal pain. COMPARISON: none. TECHNIQUE: Helical CT in 1.25mm intervals without IV contrast. Sagittal and coronal reconstructions. FINDINGS: Lung bases: Normal. Liver: Normal. Biliary system: There are multiple small calcified gallstones in the gallbladder. No biliary dilatation or inflammation. Pancreas: Normal. Spleen: Normal. Kidneys/ ureters/bladder: Normal. Adrenal glands: Normal. Aorta: Mild diffuse calcifications. No aneurysm. Intestines: Unremarkable given no oral contrast was administered. Appendix: Normal. Pelvic viscera: Normal. Ascites: None. Adenopathy: None. Musculoskeletal: Moderate thoracolumbar spondylosis. Non- displaced 9-11 left rib fractures are identified. IMPRESSION: Left ninth to 11th rib fractures. Cholelithiasis. No acute inflammatory process is identified. Transcribed By: TTR Dictated By: WALE ATKINS JR, MD Electronically Authenticated By: WALE ATKINS JR, MD Signed Date/Time: 12/08 DD/ 14 TD/TT: 12/29/171417 - Medical Decision Making Discussed results with the patient Also discussed imaging with the radiologist and he felt that additional CT with by mouth contrast would not add to the study that was already done Critical care attestation.: If time is entered above; I have spent that time in minutes in the direct care of this critically ill patient, excluding procedure time. ED Disposition Clinical Impression: Abdominal pain Disposition: DC-01 TO HOME OR SELFCARE Is pt being admited?: No Does the pt Need Aspirin: No Condition: Stable Instructions: Acute Abdominal Pain (ED) Additional Instructions: return if worse Referrals: PRIMARY CARE, [Primary Care Provider] - 3-5 Days JUSTIN IBARRA MD [Staff Physician] - 3-5 Days [facility] [Provider Group] - 3-5 Days Time of Disposition: 15:58
[2017-12-29 14:18] LABS: Basophils % (Manual) 0 % (0.0-1.8); Total Cells Counted 100
[2017-12-29 14:20] LABS: RBC Morphology Normal
--- NOTE | 2017-12-29 14:20 | Cat Scan Report ---
CT ABDOMEN PELVIS WITHOUT CONTRAST: HISTORY: abdominal pain. COMPARISON: none. TECHNIQUE: Helical CT in 1.25mm intervals without IV contrast. Sagittal and coronal reconstructions. FINDINGS: Lung bases: Normal. Liver: Normal. Biliary system: There are multiple small calcified gallstones in the gallbladder. No biliary dilatation or inflammation. Pancreas: Normal. Spleen: Normal. Kidneys/ureters/bladder: Normal. Adrenal glands: Normal. Aorta: Mild diffuse calcifications. No aneurysm. Intestines: Unremarkable given no oral contrast was administered. Appendix: Normal. Pelvic viscera: Normal. Ascites: None. Adenopathy: None. Musculoskeletal: Moderate thoracolumbar spondylosis. Non-displaced 9-11 left rib fractures are identified. IMPRESSION: Left ninth to 11th rib fractures. Cholelithiasis. No acute inflammatory process is identified.
[2017-12-29 15:37] LABS: Bilirubin,Urine NEG (Negative); Blood,Urine NEG (Negative); Color,Urine Straw (Yellow); Protein,Urine <15 mg/dL mg/dL (Negative); RBC,Urine < 1.0 /HPF (0.0-6.0); Urobilinogen,Urine < 2.0 mg/dL (<2.0); WBC,Urine < 1.0 /HPF (0.0-6.0)
[2017-12-29 16:21] VITALS: BP 136/68
== END 2017-12-29 16:38 | disposition home or self-care (01) ==
LOC: ED 11:34
DX: R10.84 Generalized abdominal pain (principal); I11.0 Hypertensive heart disease with heart failure; J44.9 Chronic obstructive pulmonary disease, unspecified; Z95.1 Presence of aortocoronary bypass graft; Z79.82 Long term (current) use of aspirin
CPT/HCPCS: 36415; 74176; 80053; 81001; 83690; 85007; 85025; 85610; 85730; 96361; 96372; 96374; 99284; J2270; J2405; J7030

== ENCOUNTER 2020-09-12 09:56 | Inpatient (IN) | payer MEDICARE ==
[2020-09-12] MEDS ORDERED: IPRATROPIUM 0.02% NEBU 2.5 ML IH ONE (10:13)
[2020-09-12] MEDS ORDERED: methylPREDNISolone Sod Succinate 125 MG/2 ML INJ IV ONE (10:13)
[2020-09-12] MEDS ORDERED: MAGNESIUM SULFATE 2 GM/50 ML BAG IV ONE (10:13)
[2020-09-12] MEDS ORDERED: ALBUTEROL 2.5 MG/3 ML NEBU IH ONE (10:13)
--- NOTE | 2020-09-12 10:15 | Emergency Department Report ---
HPI - General Time Seen by Provider: 09/12/20 10:10 - HPI HPI: This is an 85-year-old male presents to the emergency department via EMS from home with complaint of a 2-day history of progressively worsening shortness of breath, coughing and wheezing. The patient has a history of COPD for which she is usually on 5 L oxygen via nasal cannula. The patient says that he turned it up to 6 L overnight without any improvement. Upon presentation the patient is 85% oxygen saturation on 5 L via nasal cannula. Patient also has a past medical history of atrial fibrillation anticoagulated on Eliquis, hyperlipidemia, hypertension, coronary artery disease, peripheral arterial disease. No recent travel or sick contacts at home. The patient was positive for COVID-19 many months ago for which she was intubated. ED Past Medical Hx - Past Medical History Hx Hypertension: Yes Hx Heart Attack/AMI: Yes Hx COPD: Yes - Surgical History Hx Coronary Stent: Yes (x4) Additional Surgical History: right hernia repair x2, left lower vein stripping leg, hemorrhoidectomy x2 - Social History Smoking Status: Never Smoker Substance Use Type: Alcohol - Medications Home Medications: Home Medications Medication Instructions Recorded Confirmed Last Taken Type Aspirin [Aspirin BABY CHEW TAB] 81 mg PO ONCE 10/26/13 12/02/16 10/28/16 History Budesonide [Pulmicort Respules] 0.5 mg IH BID 10/26/13 12/02/16 Unknown History Clopidogrel Bisulfate [Plavix] 75 mg PO DAILY 10/26/13 12/02/16 10/28/16 History Ezetimibe [Zetia] 10 mg PO QDAY 10/26/13 12/02/16 10/28/16 History Simvastatin (Nf) [Zocor TAB] 40 mg PO ONCE 10/26/13 12/02/16 10/28/16 History Fluticasone [Flonase] 1 spray NS QDAY 10/28/16 12/02/16 10/28/16 History Losartan [Cozaar] 50 mg PO QDAY 10/28/16 12/02/16 10/28/16 History carvediloL [Coreg] 3.125 mg PO BID 10/28/16 12/02/16 10/28/16 History Amiodarone [Cordarone 200 MG TAB] 200 mg PO BID #60 tablet 11/02/16 12/02/16 Unknown Rx Furosemide [Lasix TAB] 20 mg PO QDAY #30 tablet 11/02/16 12/02/16 Unknown Rx Loratadine (Nf) [Claritin (Nf)] 10 mg PO QDAY #10 tablet 11/02/16 12/02/16 Unknown Rx Prednisone [predniSONE 10 mg 10 mg PO .TAPER #1 tab.ds.pk 11/02/16 12/02/16 Unknown Rx (6-Day Pack, 21 Tabs)] guaiFENesin DM [Robitussin Dm] 10 ml PO Q4H PRN 10 Days oral.liqd 11/02/16 12/02/16 Unknown Rx Clindamycin [Clindamycin CAP] 600 mg PO TID #36 capsule 12/03/16 Unknown Rx Warfarin [Coumadin] 5 mg PO DAILY@1700 tablet 12/03/16 Unknown Rx Acetaminophen [Tylenol Arthritis] 650 mg PO Q6HR PRN #30 tablet.er 12/17/17 Unknown Rx Albuterol Sulfate [Proair 90 mcg IH Q4HR PRN #2 aer.pow.ba 12/17/17 Unknown Rx Respiclick] Ipratropium [place] [Atrovent Hfa] 12.9 gm IH Q4HR #2 hfa.aer.ad 12/17/17 Unknown Rx Lidocaine [Lidoderm] 1 each TP QDAY #5 adh..patch 12/17/17 Unknown Rx predniSONE [Deltasone] 40 mg PO QDAY #8 tab 12/17/17 Unknown Rx ED Review of Systems ROS: Stated complaint: COPD Other details as noted in HPI Comment: All other systems reviewed and negative Constitutional: denies: chills, fever Eyes: denies: eye pain, vision change ENT: denies: ear pain, throat pain Respiratory: cough, shortness of breath, wheezing Cardiovascular: denies: chest pain, edema Gastrointestinal: denies: abdominal pain, vomiting Genitourinary: denies: dysuria, discharge Musculoskeletal: denies: back pain, arthralgia Skin: denies: rash, lesions Neurological: denies: headache, weakness Physical Exam - Physical Exam Physical Exam: GENERAL: The patient is well-developed well-nourished. HENT: Normocephalic. Atraumatic. Patient has moist mucous membranes. EYES: Extraocular motions are intact. Pupils equal reactive to light bilaterall y. NECK: Supple. Trachea is midline. CHEST/LUNGS: Rhonchi and wheezing heard bilaterally. The patient is tachypnea and conversational dyspnea. There is respiratory distress noted. HEART/CARDIOVASCULAR: Regular. There is no tachycardia. There is no murmur. ABDOMEN: Abdomen is soft, nontender. Patient has normal bowel sounds. SKIN: Skin is warm and dry. NEURO: The patient is awake, alert, and oriented. The patient is cooperative. The patient has no focal neurologic deficits. Normal speech. MUSCULOSKELETAL: There is no tenderness or deformity. There is no limitation range of motion. - ABG Interpretation Ph: 7.448 PCO2: 27 PO2: 79 Bicarbonate: 18 Interpretation: respiratory alkalosis, metabolic acidosis, other (Hypoxemia) ED Medical Decision Making - Lab Data Result diagrams: 09/12/20 12:42 09/12/20 12:42 Lab Results 09/12/20 09/12/20 09/12/20 Range/Units 11:20 11:20 11:20 WBC 9.8 (4.5-11.0) K/mm3 RBC 4.05 (3.65-5.03) M/mm3 Hgb 11.9 (11.8-15.2) gm/dl Hct 35.4 L (35.5-45.6) % MCV 87 (84-94) fl MCH 30 (28-32) pg MCHC 34 (32-34) % RDW 15.9 H (13.2-15.2) % Plt Count 314 (140-440) K/mm3 Lymph % (Auto) 7.9 L (13.4-35.0) % Giles % (Auto) 3.3 (0.0-7.3) % Eos % (Auto) 0.2 (0.0-4.3) % Baso % (Auto) 0.2 (0.0-1.8) % Lymph # (Auto) 0.8 L (1.2-5.4) K/mm3 Giles # (Auto) 0.3 (0.0-0.8) K/mm3 Eos # (Auto) 0.0 (0.0-0.4) K/mm3 Baso # (Auto) 0.0 (0.0-0.1) K/mm3 Seg Neutrophils % 88.4 H (40.0-70.0) % Seg Neutrophils # 8.6 H (1.8-7.7) K/mm3 PT 15.4 H (12.2-14.9) Sec. INR 1.17 H (0.87-1.13) APTT 35.9 (24.2-36.6) Sec. ABG pH (7.320-7.450) POC ABG pCO2 (32.0-48.0) mmHg POC ABG pO2 (83-108) mmHg POC ABG HCO3 ABG O2 Saturation (0-100) POC ABG Base Excess ABG Hemoglobin (12.0-17.5) ABG Oxyhemoglobin (94-98) ABG Methemoglobin (0.0-1.5) ABG Sodium (136.0-145.0) mmol/L ABG Potassium (3.40-4.50) mmol/L ABG Chloride (98-107) mmol/L ABG Glucose (65-95) mg/dL Carboxyhemoglobin (0.5-1.5) FiO2 % Sodium 130 L (137-145) mmol/L Potassium 3.8 (3.6-5.0) mmol/L Chloride 93.5 L (98-107) mmol/L Carbon Dioxide 24 (22-30) mmol/L Anion Gap 16 mmol/L BUN 5 L (9-20) mg/dL Creatinine 0.6 L (0.8-1.3) mg/dL Estimated GFR > 60 ml/min BUN/Creatinine Ratio 8 % Glucose 118 H (75-100) mg/dL Lactic Acid (0.7-2.0) mmol/L Calcium 8.9 (8.4-10.2) mg/dL Total Bilirubin 0.70 (0.1-1.2) mg/dL AST 16 (5-40) units/L ALT 17 (7-56) units/L Alkaline Phosphatase 104 (35-129) units/L Troponin T < 0.010 (0.00-0.029) ng/mL NT-Pro-B Natriuret Pep 2014 H (0-900) pg/mL Total Protein 7.7 (6.3-8.2) g/dL Albumin 3.6 L (3.9-5) g/dL Albumin/Globulin Ratio 0.9 % Arterial Blood Glucose (65-95) mg/dL Arterial Blood Ionized Calcium (4.6-5.3) mg/dL 09/12/20 09/12/20 09/12/20 Range/Units 11:20 12:15 12:42 WBC (4.5-11.0) K/mm3 RBC (3.65-5.03) M/mm3 Hgb (11.8-15.2) gm/dl Hct (35.5-45.6) % MCV (84-94) fl MCH (28-32) pg MCHC (32-34) % RDW (13.2-15.2) % Plt Count (140-440) K/mm3 Lymph % (Auto) (13.4-35.0) % Giles % (Auto) (0.0-7.3) % Eos % (Auto) (0.0-4.3) % Baso % (Auto) (0.0-1.8) % Lymph # (Auto) (1.2-5.4) K/mm3 Giles # (Auto) (0.0-0.8) K/mm3 Eos # (Auto) (0.0-0.4) K/mm3 Baso # (Auto) (0.0-0.1) K/mm3 Seg Neutrophils % (40.0-70.0) % Seg Neutrophils # (1.8-7.7) K/mm3 PT (12.2-14.9) Sec. INR (0.87-1.13) APTT (24.2-36.6) Sec. ABG pH 7.448 (7.320-7.450) POC ABG pCO2 27.3 L (32.0-48.0) mmHg POC ABG pO2 79.9 L (83-108) mmHg POC ABG HCO3 18.5 ABG O2 Saturation 96.3 (0-100) POC ABG Base Excess -4.2 ABG Hemoglobin 12.6 (12.0-17.5) ABG Oxyhemoglobin 95.1 (94-98) ABG Methemoglobin 0 (0.0-1.5) ABG Sodium 129.0 L (136.0-145.0) mmol/L ABG Potassium 3.6 (3.40-4.50) mmol/L ABG Chloride 97.0 L (98-107) mmol/L ABG Glucose 153 H (65-95) mg/dL Carboxyhemoglobin 1.2 (0.5-1.5) FiO2 % 40.0 Sodium (137-145) mmol/L Potassium (3.6-5.0) mmol/L Chloride (98-107) mmol/L Carbon Dioxide (22-30) mmol/L Anion Gap mmol/L BUN (9-20) mg/dL Creatinine (0.8-1.3) mg/dL Estimated GFR ml/min BUN/Creatinine Ratio % Glucose (75-100) mg/dL Lactic Acid 1.50 (0.7-2.0) mmol/L Calcium (8.4-10.2) mg/dL Total Bilirubin (0.1-1.2) mg/dL AST (5-40) units/L ALT (7-56) units/L Alkaline Phosphatase (35-129) units/L Troponin T < 0.010 (0.00-0.029) ng/mL NT-Pro-B Natriuret Pep (0-900) pg/mL Total Protein (6.3-8.2) g/dL Albumin (3.9-5) g/dL Albumin/Globulin Ratio % Arterial Blood Glucose 153 H (65-95) mg/dL Arterial Blood Ionized Calcium 4.5 L (4.6-5.3) mg/dL 09/12/20 09/12/20 Range/Units 12:42 12:42 WBC 9.5 (4.5-11.0) K/mm3 RBC 3.93 (3.65-5.03) M/mm3 Hgb 11.8 (11.8-15.2) gm/dl Hct 35.4 L (35.5-45.6) % MCV 90 (84-94) fl MCH 30 (28-32) pg MCHC 33 (32-34) % RDW 15.7 H (13.2-15.2) % Plt Count 304 (140-440) K/mm3 Lymph % (Auto) (13.4-35.0) % Giles % (Auto) (0.0-7.3) % Eos % (Auto) (0.0-4.3) % Baso % (Auto) (0.0-1.8) % Lymph # (Auto) (1.2-5.4) K/mm3 Giles # (Auto) (0.0-0.8) K/mm3 Eos # (Auto) (0.0-0.4) K/mm3 Baso # (Auto) (0.0-0.1) K/mm3 Seg Neutrophils % (40.0-70.0) % Seg Neutrophils # (1.8-7.7) K/mm3 PT (12.2-14.9) Sec. INR (0.87-1.13) APTT (24.2-36.6) Sec. ABG pH (7.320-7.450) POC ABG pCO2 (32.0-48.0) mmHg POC ABG pO2 (83-108) mmHg POC ABG HCO3 ABG O2 Saturation (0-100) POC ABG Base Excess ABG Hemoglobin (12.0-17.5) ABG Oxyhemoglobin (94-98) ABG Methemoglobin (0.0-1.5) ABG Sodium (136.0-145.0) mmol/L ABG Potassium (3.40-4.50) mmol/L ABG Chloride (98-107) mmol/L ABG Glucose (65-95) mg/dL Carboxyhemoglobin (0.5-1.5) FiO2 % Sodium (137-145) mmol/L Potassium (3.6-5.0) mmol/L Chloride (98-107) mmol/L Carbon Dioxide (22-30) mmol/L Anion Gap mmol/L BUN (9-20) mg/dL Creatinine 0.6 L (0.8-1.3) mg/dL Estimated GFR > 60 ml/min BUN/Creatinine Ratio % Glucose (75-100) mg/dL Lactic Acid (0.7-2.0) mmol/L Calcium (8.4-10.2) mg/dL Total Bilirubin (0.1-1.2) mg/dL AST (5-40) units/L ALT (7-56) units/L Alkaline Phosphatase (35-129) units/L Troponin T (0.00-0.029) ng/mL NT-Pro-B Natriuret Pep (0-900) pg/mL Total Protein (6.3-8.2) g/dL Albumin (3.9-5) g/dL Albumin/Globulin Ratio % Arterial Blood Glucose (65-95) mg/dL Arterial Blood Ionized Calcium (4.6-5.3) mg/dL - EKG Data -: EKG Interpreted by Me EKG shows normal: sinus rhythm, axis, intervals, QRS complexes, ST-T waves Rate: normal - EKG Data When compared to previous EKG there are: no significant change Interpretation: normal EKG, unchanged when compared t (12/17/17) - Radiology Data Radiology results: image reviewed interpreted by me: Chest x-ray shows bilateral patchy infiltrates concerning for pneumonia. - Medical Decision Making This patient presents with a few days of progressively worsening shortness of breath and cough and wheezing. Usually patient is home O2 dependent at 5 L via nasal cannula but he had to increase the oxygen supplementation and even this did not improve his symptoms. Upon presentation here the patient was placed on his 5 L via nasal cannula and he had a oxygen saturation of 85%. The patient has tachypnea, accessory muscle use, conversational dyspnea, and appears in distress. He was placed on a BiPAP which did help with his oxygen saturation and work of breathing. Chest x-ray shows bilateral patchy infiltrates concerning for pneumonia. It could also represent interstitial edema. Patient's labs are mostly unremarkable except for an elevated proBNP of about 2000, and a slightly elevated and equivocal D-dimer level. Given the fact that the patient is on Eliquis and with an age-adjusted D-dimer level, it appears lower suspicion for PE. Blood cultures have been sent and the patient was started on IV antibiotics for the possible pneumonia. ABG shows some respiratory alkalosis, metabolic acidosis, and hypoxemia. The patient will be admitted to the hospital for further evaluation and treatment was accepted for admission by the hospitalist, Dr. Miles. Critical Care Time: Yes Critical care time in (mins) excluding proc time.: 35 Critical care attestation.: If time is entered above; I have spent that time in minutes in the direct care of this critically ill patient, excluding procedure time. Critical care time was spent on this patient in doing his initial evaluation, multiple reevaluations, ordering and interpretation of labs and imaging, BiPAP management, IV antibiotics, multiple discussions with the patient and a discussion with hospitalist service. Critical Care Time: 35 minutes ED Disposition Clinical Impression: COPD exacerbation Acute respiratory failure Qualifiers: Respiratory failure complication: hypoxia Qualified Code(s): J96.01 - Acute respiratory failure with hypoxia Bilateral pneumonia Qualifiers: Pneumonia type: due to unspecified organism Lung location: unspecified part of lung Qualified Code(s): J18.9 - Pneumonia, unspecified organism Disposition: DC-09 OP ADMIT IP TO THIS HOSP Is pt being admited?: Yes Condition: Serious Time of Disposition: 13:59
--- NOTE | 2020-09-12 10:45 | XRay Report ---
CHEST 1 VIEW 09/12/2020 10:18 AM INDICATION / CLINICAL INFORMATION: Shortness of breath. COMPARISON: None available. FINDINGS: SUPPORT DEVICES: None. HEART / MEDIASTINUM: No significant abnormality. LUNGS / PLEURA: There are patchy bilateral pulmonary opacities most prominent in the left midlung. No pneumothorax. ADDITIONAL FINDINGS: No significant additional findings. IMPRESSION: 1. Patchy bilateral pulmonary opacities that may reflect multifocal pneumonia. Signer Name: Aroldo Sotomayor MD Signed: 09/12/2020 10:41 AM Workstation Name: [id number]
[2020-09-12] MEDS ORDERED: AZITHROMYCIN/NS 500 MG/250 ML 500 MG/250 ML BAG IV ONE (10:50)
[2020-09-12] MEDS ORDERED: DOXYCYCLINE HYCLATE 100 MG in SODIUM CHLORIDE 0.9% 250ML 250 ML IV ONE (11:30)
[2020-09-12 11:47] LABS: Basophils % (Auto) 0.2 % (0.0-1.8); Eosinophils % (Auto) 0.2 % (0.0-4.3); Hematocrit 35.4 % (35.5-45.6); Hemoglobin 11.9 gm/dl (11.8-15.2); Lymphocytes # (Auto) 0.8 K/mm3 (1.2-5.4); Lymphocytes % (Auto) 7.9 % (13.4-35.0); Mean Corpuscular HGB Conc 34 % (32-34); Mean Corpuscular Volume 87 fl (84-94); Monocytes # (Auto) 0.3 K/mm3 (0.0-0.8); Monocytes % (Auto) 3.3 % (0.0-7.3); Platelet Count 314 K/mm3 (140-440); Red Blood Count 4.05 M/mm3 (3.65-5.03); Red Cell Distribution Width 15.9 % (13.2-15.2)
[2020-09-12 11:57] LABS: INR 1.17 (0.87-1.13)
[2020-09-12 11:58] LABS: Partial Thromboplastin Time 35.9 Sec. (24.2-36.6)
[2020-09-12 12:13] LABS: Alanine Aminotransferase 17 units/L (7-56); Albumin 3.6 g/dL (3.9-5); BUN/Creatinine Ratio 8; Blood Urea Nitrogen 5 mg/dL (9-20); Calcium 8.9 mg/dL (8.4-10.2); Hemolysis Index 4
--- NOTE | 2020-09-12 12:18 | History and Physical Report ---
History of Present Illness Chief complaint: Cannot breathe History of present illness: 85 YO Male with COPD, CAD S/P Stent placement on DAPT, CHF,[place], HTN, GERD, Chronic Respiratory Failure on Home oxygen @5L/Min via [place], Atrial Fib on Therapeutic anticoagulation presents to ED for evaluation. Patient reports "I cannot breathe". Patient is unable to speak in complete sentences due to shortness of breath. Patient uses head gestures to acknowledge symptoms. Patient reports that he has experienced shortness of breath over the past 2 days with progressively worsening symptoms over the same timeframe. EMS was notified and upon arrival the patient was found to be in respiratory distress with a pulse oximetry of 85% on 5 L nasal cannula which is consistent with acute hypoxemic respiratory failure. Patient subsequently transported to [facility] for further care and evaluation of the aforementioned symptoms. The patient was seen and evaluated in the emergency department. All lab and imaging studies reviewed. Patient underwent a chest x-ray and was found to have bilateral pneumonia, hyponatremia, as well as clinical symptoms consistent with CHF decompensation. Patient initiated on pneumonia protocol as well as coronavirus protocol and admitted to IMCU due to increased risk of pulmonary decompensation. Patient denies fever, chills, chest pain, palpitation, productive cough, skin rash, recent ill contacts. Patient knowledges coronavirus infection in the past requiring intubation. Prior admission on 1117 reviewed. All medication listed at time of admission has been reconciled. Advanced care planning conducted in ED. Past History Past Medical History: acute [place], atrial fib, COPD, GERD, heart failure, hypertension Past Surgical History: hernia repair, Other ( right hernia repair x2, left lower vein stripping leg, hemorrhoidectomy x2, cardiac stent placement) Social history: , lives with family. denies: smoking, alcohol abuse, prescription drug abuse Family history: diabetes, hypertension Medications and Allergies Allergies Allergy/AdvReac Type Severity Reaction Status Date / Time No Known Allergies Allergy Verified 10/26/13 18:06 Home Medications Medication Instructions Recorded Confirmed Last Taken Type Aspirin [Aspirin BABY CHEW TAB] 81 mg PO ONCE 10/26/13 12/02/16 10/28/16 History Budesonide [Pulmicort Respules] 0.5 mg IH BID 10/26/13 12/02/16 Unknown History Clopidogrel Bisulfate [Plavix] 75 mg PO DAILY 10/26/13 12/02/16 10/28/16 History Ezetimibe [Zetia] 10 mg PO QDAY 10/26/13 12/02/16 10/28/16 History Simvastatin (Nf) [Zocor TAB] 40 mg PO ONCE 10/26/13 12/02/16 10/28/16 History Fluticasone [Flonase] 1 spray NS QDAY 10/28/16 12/02/16 10/28/16 History Losartan [Cozaar] 50 mg PO QDAY 10/28/16 12/02/16 10/28/16 History carvediloL [Coreg] 3.125 mg PO BID 10/28/16 12/02/16 10/28/16 History Amiodarone [Cordarone 200 MG TAB] 200 mg PO BID #60 tablet 11/02/16 12/02/16 Unknown Rx Furosemide [Lasix TAB] 20 mg PO QDAY #30 tablet 11/02/16 12/02/16 Unknown Rx Loratadine (Nf) [Claritin (Nf)] 10 mg PO QDAY #10 tablet 11/02/16 12/02/16 Unknown Rx Prednisone [predniSONE 10 mg 10 mg PO .TAPER #1 tab.ds.pk 11/02/16 12/02/16 Unknown Rx (6-Day Pack, 21 Tabs)] guaiFENesin DM [Robitussin Dm] 10 ml PO Q4H PRN 10 Days oral.liqd 11/02/16 12/02/16 Unknown Rx Clindamycin [Clindamycin CAP] 600 mg PO TID #36 capsule 12/03/16 Unknown Rx Warfarin [Coumadin] 5 mg PO DAILY@1700 tablet 12/03/16 Unknown Rx Acetaminophen [Tylenol Arthritis] 650 mg PO Q6HR PRN #30 tablet.er 12/17/17 Unknown Rx Albuterol Sulfate [Proair 90 mcg IH Q4HR PRN #2 aer.pow.ba 12/17/17 Unknown Rx Respiclick] Ipratropium [place] [Atrovent Hfa] 12.9 gm IH Q4HR #2 hfa.aer.ad 12/17/17 Unknown Rx Lidocaine [Lidoderm] 1 each TP QDAY #5 adh..patch 12/17/17 Unknown Rx predniSONE [Deltasone] 40 mg PO QDAY #8 tab 12/17/17 Unknown Rx Active Meds: Active Medications Doxycycline Hyclate 100 mg/ (Sodium Chloride) 250 mls @ 250 mls/hr IV ONCE ONE; Protocol Stop: 09/12/20 12:29 Last Admin: 09/12/20 11:52 Dose: 250 mls/hr Documented by: Review of Systems Constitutional: weakness, no weight loss, no weight gain, no fever, no chills Ears, nose, mouth and throat: no ear pain, no tinnitis, no decreased hearing, no nose pain, no nasal congestion Cardiovascular: shortness of breath, decreased exercise tolerance, no chest pain, no orthopnea, no claudication Respiratory: no cough, no cough with sputum, no excessive sputum Gastrointestinal: no abdominal pain, no nausea, no vomiting, no diarrhea, no constipation Genitourinary Male: no hematuria, no flank pain, no discharge, no urinary frequency, no urinary hesitancy Rectal: no pain, no incontinence, no bleeding Musculoskeletal: no neck stiffness, no neck pain, no shooting arm pain, no low back pain, no shooting leg pain, no redness of joints Integumentary: no rash, no pruritis, no redness, no sores, no wounds Neurological: no transient paralysis, no paralysis, no weakness, no numbness, no tingling, no seizures Psychiatric: no memory loss, no sleep disturbances, no insomnia, no change in appetite, no change in libido, no suicidal ideation Endocrine: no cold intolerance, no heat intolerance, no polyphagia, no excessive thirst, no polydipsia, no nocturia Hematologic/Lymphatic: no easy bruising, no easy bleeding, no lymphadenopathy Allergic/Immunologic: no urticaria, no wheezing, no persistent infections, no anaphylaxis Exam - Constitutional Vitals: Temp Pulse Resp BP Pulse Ox 97.9 F 77 20 150/62 97 09/12/20 10:26 09/12/20 10:31 09/12/20 10:35 09/12/20 10:31 09/12/20 10:35 General appearance: Present: severe distress - EENT Eyes: Present: PERRL ENT: hearing intact, clear oral mucosa - Neck Neck: Present: supple, normal ROM - Respiratory Respiratory effort: labored, accessory muscle use, stridor Respiratory: bilateral: diminished, rhonchi - Cardiovascular Rhythm: irregularly irregular - Extremities Extremities: pulses symmetrical Extremity abnormal: edema Peripheral Pulses: within normal limits - Abdominal General gastrointestinal: Present: soft, non-tender, non-distended, normal bowel sounds Male genitourinary: Present: normal - Integumentary Integumentary: Present: clear, warm, dry - Musculoskeletal Musculoskeletal: generalized weakness - Psychiatric Psychiatric: appropriate mood/affect, intact judgment & insight - Neurologic Neurologic: CNII-XII intact, moves all extremities HEART Score - HEART Score Troponin: Troponin T < 0.010 ng/mL (0.00-0.029) 09/12/20 11:20 Results - Labs CBC & Chem 7: 09/12/20 12:42 09/12/20 11:20 Labs: Abnormal lab results 09/12/20 09/12/20 09/12/20 Range/Units 11:20 11:20 11:20 Hct 35.4 L (35.5-45.6) % RDW 15.9 H (13.2-15.2) % Lymph % (Auto) 7.9 L (13.4-35.0) % Lymph # (Auto) 0.8 L (1.2-5.4) K/mm3 Seg Neutrophils % 88.4 H (40.0-70.0) % Seg Neutrophils # 8.6 H (1.8-7.7) K/mm3 PT 15.4 H (12.2-14.9) Sec. INR 1.17 H (0.87-1.13) Sodium 130 L (137-145) mmol/L Chloride 93.5 L (98-107) mmol/L BUN 5 L (9-20) mg/dL Creatinine 0.6 L (0.8-1.3) mg/dL Glucose 118 H (75-100) mg/dL NT-Pro-B Natriuret Pep 2014 H (0-900) pg/mL Albumin 3.6 L (3.9-5) g/dL Assessment and Plan - Patient Problems (1) Acute on chronic respiratory failure with hypoxemia Current Visit: Yes Status: Acute Plan to address problem: Chest x-ray, supplemental oxygen, noninvasive positive pressure ventilation, pulmonary team consulted, continue medical management. (2) Pneumonia Current Visit: Yes Status: Acute Plan to address problem: Pneumonia protocol: Chest x-ray, CBC, CMP, IV antibiotic therapy, blood culture, supplemental oxygen, pulse oximetry. Nebulizer therapy. (3) Suspected 2019 novel coronavirus infection Current Visit: Yes Status: Acute Plan to address problem: Coronavirus protocol: Coronavirus PCR ordered and is pending at time of admission, IV antibiotic therapy, IV steroid therapy, vitamin C therapy, vitamin D therapy, zinc therapy, contact precautions, isolation precautions. Continue therapeutic anticoagulation. (4) Diastolic CHF Current Visit: Yes Status: Acute Qualifiers: Heart failure chronicity: acute on chronic Qualified Code(s): I50.33 - Acute on chronic diastolic (congestive) heart failure Plan to address problem: Blood pressure: Controlled, cardiology team consulted, echocardiogram, BNP, thyroid panel, magnesium level, afterload reduction, (5) Atrial fibrillation Current Visit: Yes Status: Acute Qualifiers: Atrial fibrillation type: longstanding persistent Qualified Code(s): I48.11 - Longstanding persistent atrial fibrillation Plan to address problem: Rate control, continue therapeutic anticoagulation, cardiology team consulted. (6) DVT prophylaxis Current Visit: No Status: Acute Plan to address problem: SCD to bilateral lower extremities while in bed, continue therapeutic anticoagulation (7) Advance care planning Current Visit: Yes Status: Acute Plan to address problem: Disease education conducted, care plan discussed, diagnoses discussed, prognosis discussed, patient is full code. Patient knowledges understanding and agree with care plan, +30 minutes.
[2020-09-12] MEDS ORDERED: ACETAMINOPHEN 650 MG PO PRN (12:20)
[2020-09-12] MEDS ORDERED: NON-FORMULARY EACH (Simvastatin (Nf) 20 MG Tablet) PO SCH (12:30)
[2020-09-12] MEDS ORDERED: VANCOMYCIN 1,250 MG in SODIUM CHLORIDE 0.9% 500 ML 500 ML IV ONE (12:47)
[2020-09-12] MEDS ORDERED: ASPIRIN 81 MG TAB CHEW PO SCH (13:00)
[2020-09-12] MEDS ORDERED: VANCOMYCIN PHARMACY TO DOSE IV SCH (13:00)
[2020-09-12 13:04] LABS: Hematocrit 35.4 % (35.5-45.6); Hemoglobin 11.8 gm/dl (11.8-15.2); Mean Corpuscular HGB Conc 33 % (32-34); Mean Corpuscular Volume 90 fl (84-94); Platelet Count 304 K/mm3 (140-440); Red Blood Count 3.93 M/mm3 (3.65-5.03); Red Cell Distribution Width 15.7 % (13.2-15.2)
[2020-09-12] MEDS ORDERED: VANCOMYCIN 1,250 MG in SODIUM CHLORIDE 0.9% 250ML 250 ML IV SCH (13:15)
[2020-09-12 13:18] LABS: INR 1.25 (0.87-1.13); Partial Thromboplastin Time 34.4 Sec. (24.2-36.6)
[2020-09-12] MEDS ORDERED: ACETAMINOPHEN 325 MG TAB PO PRN (13:30)
[2020-09-12] MEDS ORDERED: VANCOMYCIN 1,250 MG in SODIUM CHLORIDE 0.9% 250ML 250 ML IV ONE (14:30)
[2020-09-12 14:43] LABS: C-Reactive Protein 5.4 mg/dL (0.00-1.30)
[2020-09-12 15:22] LABS: Free T4 (Free Thyroxine) 1.24 ng/dL (0.76-1.46)
[2020-09-12] MEDS ORDERED: CEFEPIME/NS 2 GM/100 ML 2 GM/100 ML BAG IV ONE (15:43)
[2020-09-12] MEDS: CEFEPIME/NS 2 GM/100 ML 2 GM/100 ML BAG IV SCH (16:59)
[2020-09-12] MEDS: methylPREDNISolone Sod Succinate 40 MG/1 ML INJ IV SCH ×2 (16:59→23:17)
[2020-09-12] MEDS ORDERED: WARFARIN 5 MG TAB PO SCH (17:00)
[2020-09-12] MEDS: guaiFENesin DM 200/20 MG ORAL LIQD 10 ML PO PRN (21:26)
[2020-09-12] MEDS: carvediloL 3.125 MG TAB PO SCH (23:17)
[2020-09-12] MEDS: ZINC SULFATE 220 MG CAP PO SCH (23:17)
[2020-09-12] MEDS: PRAVASTATIN 40 MG TAB PO SCH (23:17)
[2020-09-12] MEDS: AMIODARONE 200 MG TAB PO SCH (23:18)
[2020-09-12] MEDS: APIXABAN 2.5 MG TAB PO SCH (23:50)
[2020-09-13] MEDS: CEFEPIME/NS 2 GM/100 ML 2 GM/100 ML BAG IV SCH ×4 (02:09→17:56)
[2020-09-13] MEDS: ASCORBIC ACID 500 MG TAB PO SCH ×3 (02:10→22:59)
[2020-09-13] MEDS: methylPREDNISolone Sod Succinate 40 MG/1 ML INJ IV SCH ×3 (05:56→23:00)
[2020-09-13 08:21] LABS: Basophils % (Auto) 0.1 % (0.0-1.8); Hematocrit 36.9 % (35.5-45.6); Hemoglobin 12.6 gm/dl (11.8-15.2); Lymphocytes # (Auto) 0.8 K/mm3 (1.2-5.4); Lymphocytes % (Auto) 12.4 % (13.4-35.0); Mean Corpuscular HGB Conc 34 % (32-34); Mean Corpuscular Volume 89 fl (84-94); Monocytes # (Auto) 0.1 K/mm3 (0.0-0.8); Monocytes % (Auto) 1.9 % (0.0-7.3); Platelet Count 330 K/mm3 (140-440); Red Blood Count 4.17 M/mm3 (3.65-5.03)
[2020-09-13 08:49] LABS: Alanine Aminotransferase 18 units/L (7-56); Albumin 3.4 g/dL (3.9-5); Blood Urea Nitrogen 12 mg/dL (9-20); Calcium 8.7 mg/dL (8.4-10.2); Hemolysis Index 1
[2020-09-13 08:50] LABS: BUN/Creatinine Ratio 20
--- NOTE | 2020-09-13 09:47 | Consultation ---
History of Present Illness Consult date: 09/13/20 Consult reason: congestive heart failure History of present illness: Patient is an 85-year old M with chronic shortness of breath, severe COPD on home oxygen, who presents with worsening shortness of breath, cough, and wheezing. Chest x-ray reports findings of bilateral pulmonary opacities. There were no complaints of chest pain or palpitations. No lower extremity edema. Patient has a cardiac history of paroxysmal atrial fibrillation/flutter and takes Eliquis for oral anticoagulation. There is also a history of coronary artery disease. Serial outpatient thallium stress test reports no ischemia. An ECG on this presentation shows atrial flutter, with a well controlled ventricular rate. Past History Past Medical History: acute [place], atrial fib, COPD, GERD, hypertension Past Surgical History: hernia repair, Other ( right hernia repair x2, left lower vein stripping leg, hemorrhoidectomy x2, cardiac stent placement) Social history: , lives with family. denies: smoking, alcohol abuse, prescription drug abuse Family history: diabetes, hypertension Medications and Allergies Allergies Allergy/AdvReac Type Severity Reaction Status Date / Time No Known Allergies Allergy Verified 10/26/13 18:06 Home Medications Medication Instructions Recorded Confirmed Last Taken Type Aspirin [Aspirin BABY CHEW TAB] 81 mg PO ONCE 10/26/13 09/13/20 10/28/16 History Budesonide [Pulmicort Respules] 0.5 mg IH BID 10/26/13 09/13/20 Unknown History Clopidogrel Bisulfate [Plavix] 75 mg PO DAILY 10/26/13 09/13/20 10/28/16 History Ezetimibe [Zetia] 10 mg PO QDAY 10/26/13 09/13/20 10/28/16 History Simvastatin (Nf) [Zocor TAB] 40 mg PO ONCE 10/26/13 09/13/20 10/28/16 History Fluticasone [Flonase] 1 spray NS QDAY 10/28/16 09/13/20 10/28/16 History Losartan [Cozaar] 50 mg PO QDAY 10/28/16 09/13/20 10/28/16 History carvediloL [Coreg] 3.125 mg PO BID 10/28/16 09/13/20 10/28/16 History Amiodarone [Cordarone 200 MG TAB] 200 mg PO BID #60 tablet 11/02/16 09/13/20 Unknown Rx Furosemide [Lasix TAB] 20 mg PO QDAY #30 tablet 11/02/16 09/13/20 Unknown Rx Loratadine (Nf) [Claritin (Nf)] 10 mg PO QDAY #10 tablet 11/02/16 09/13/20 Unknown Rx Prednisone [predniSONE 10 mg 10 mg PO .TAPER #1 tab.ds.pk 11/02/16 09/13/20 Unknown Rx (6-Day Pack, 21 Tabs)] guaiFENesin DM [Robitussin Dm] 10 ml PO Q4H PRN 10 Days oral.liqd 11/02/16 09/13/20 Unknown Rx Clindamycin [Clindamycin CAP] 600 mg PO TID #36 capsule 12/03/16 09/13/20 Unknown Rx Warfarin [Coumadin] 5 mg PO DAILY@1700 tablet 12/03/16 09/13/20 Unknown Rx Acetaminophen [Tylenol Arthritis] 650 mg PO Q6HR PRN #30 tablet.er 12/17/17 09/13/20 Unknown Rx Albuterol Sulfate [Proair 90 mcg IH Q4HR PRN #2 aer.pow.ba 12/17/17 09/13/20 Unknown Rx Respiclick] Ipratropium [place] [Atrovent Hfa] 12.9 gm IH Q4HR #2 hfa.aer.ad 12/17/17 09/13/20 Unknown Rx Lidocaine [Lidoderm] 1 each TP QDAY #5 adh..patch 12/17/17 09/13/20 Unknown Rx predniSONE [Deltasone] 40 mg PO QDAY #8 tab 12/17/17 09/13/20 Unknown Rx Active Meds: Active Medications Acetaminophen (Acetaminophen 325 Mg Tab) 650 mg PO Q6HR PRN PRN Reason: Pain, Mild (1-3) Amiodarone HCl (Amiodarone 200 Mg Tab) 200 mg PO BID [facility] Last Admin: 09/12/20 23:18 Dose: 200 mg Documented by: Apixaban (Apixaban 2.5 Mg Tab) 2.5 mg PO Q12HR [facility]; Protocol Stop: 10/17/20 21:59 Last Admin: 09/12/20 23:50 Dose: 2.5 mg Documented by: Ascorbic Acid (Ascorbic Acid 500 Mg Tab) 500 mg PO BID [facility] Last Admin: 09/13/20 02:10 Dose: 500 mg Documented by: Aspirin (Aspirin 81 Mg Tab Chew) 81 mg PO ONCE [facility] Carvedilol (Carvedilol 3.125 Mg Tab) 3.125 mg PO BID [facility] Last Admin: 09/12/20 23:17 Dose: 3.125 mg Documented by: Cetirizine HCl (Cetirizine 10 Mg Tab) 10 mg PO DAILY [facility] Cholecalciferol (Cholecalciferol (Vit D3) 1000 Unit (25 Mcg) Tab) 1,000 unit PO QDAY [facility] Clopidogrel Bisulfate (Clopidogrel 75 Mg Tab) 75 mg PO DAILY [facility] Ezetimibe (Ezetimibe 10 Mg Tab) 10 mg PO QDAY [facility] Guaifenesin (Guaifenesin Dm 200/20 Mg Oral Liqd 10 Ml) 10 ml PO Q4H PRN PRN Reason: Cough Last Admin: 09/12/20 21:26 Dose: 10 ml Documented by: Vancomycin HCl 1,250 mg/ (Sodium Chloride) 275 mls @ 166.667 mls/hr IV Q24H [facility] Cefepime HCl (Cefepime/Ns 2 Gm/100 Ml) 2 gm in 100 mls @ 200 mls/hr IV Q8H [facility]; Protocol Last Admin: 09/13/20 02:09 Dose: 200 mls/hr Documented by: Lidocaine (Lidocaine 5% 1 Each Patch) 1 each TD QDAY [facility] Losartan Potassium (Losartan 50 Mg Tab) 50 mg PO QDAY [facility] Methylprednisolone Sodium Succinate (Methylprednisolone Sod Succinate 40 Mg/1 Ml Inj) 40 mg IV Q8HR [facility] Last Admin: 09/13/20 05:56 Dose: 40 mg Documented by: Pravastatin Sodium (Pravastatin 40 Mg Tab) 40 mg PO QHS [facility] Last Admin: 09/12/20 23:17 Dose: 40 mg Documented by: Sodium Chloride (Sodium Chloride 0.9% 10 Ml Flush Syringe) 10 ml IV BID [facility] Last Admin: 09/12/20 23:19 Dose: 10 ml Documented by: Sodium Chloride (Sodium Chloride 0.9% 10 Ml Flush Syringe) 10 ml IV PRN PRN PRN Reason: LINE FLUSH Stop: 09/23/20 12:59 Zinc Sulfate (Zinc Sulfate 220 Mg Cap) 220 mg PO BID [facility] Last Admin: 09/12/20 23:17 Dose: 220 mg Documented by: Review of Systems Cardiovascular: shortness of breath, no chest pain, no palpitations, no syncope Respiratory: cough, shortness of breath, wheezing Physical Examination Vital Signs Pulse Resp BP Pulse Ox 77 40 H 150/62 93 09/12/20 10:15 09/12/20 10:15 09/12/20 10:15 09/12/20 10:15 General appearance: no acute distress HEENT: Positive: PERRL Neck: Positive: trachea midline Cardiac: Positive: irregularly irregular Results 09/13/20 07:43 09/13/20 07:43 Cardiac Enzymes 09/12/20 09/12/20 09/13/20 Range/Units 11:20 13:40 07:43 AST 16 17 (5-40) units/L Lactate Dehydrogenase 273 H (91-180) units/L Coagulation 09/12/20 09/12/20 Range/Units 11:20 12:47 PT 15.4 H 16.2 H (12.2-14.9) Sec. INR 1.17 H 1.25 H (0.87-1.13) APTT 35.9 34.4 (24.2-36.6) Sec. CBC 09/12/20 09/12/20 09/13/20 Range/Units 11:20 12:42 07:43 WBC 9.8 9.5 6.8 (4.5-11.0) K/mm3 RBC 4.05 3.93 4.17 (3.65-5.03) M/mm3 Hgb 11.9 11.8 12.6 (11.8-15.2) gm/dl Hct 35.4 L 35.4 L 36.9 (35.5-45.6) % Plt Count 314 304 330 (140-440) K/mm3 Lymph # (Auto) 0.8 L 0.8 L (1.2-5.4) K/mm3 [place] # (Auto) 0.3 0.1 (0.0-0.8) K/mm3 Eos # (Auto) 0.0 0.0 (0.0-0.4) K/mm3 Baso # (Auto) 0.0 0.0 (0.0-0.1) K/mm3 Comprehensive Metabolic Panel 06/23/21 06/23/21 06/23/21 Range/Units 11:20 12:42 13:40 Sodium 130 L (137-145) mmol/L Potassium 3.8 (3.6-5.0) mmol/L Chloride 93.5 L (98-107) mmol/L Carbon Dioxide 24 (22-30) mmol/L BUN 5 L (9-20) mg/dL Creatinine 0.6 L 0.6 L (0.8-1.3) mg/dL Glucose 118 H 103 H (75-100) mg/dL Calcium 8.9 (8.4-10.2) mg/dL AST 16 (5-40) units/L ALT 17 (7-56) units/L Alkaline Phosphatase 104 (35-129) units/L Total Protein 7.7 (6.3-8.2) g/dL Albumin 3.6 L (3.9-5) g/dL 09/13/20 Range/Units 07:43 Sodium 135 L (137-145) mmol/L Potassium 5.1 H D (3.6-5.0) mmol/L Chloride 100.1 (98-107) mmol/L Carbon Dioxide 22 (22-30) mmol/L BUN 12 (9-20) mg/dL Creatinine 0.6 L (0.8-1.3) mg/dL Glucose 144 H (75-100) mg/dL Calcium 8.7 (8.4-10.2) mg/dL AST 17 (5-40) units/L ALT 18 (7-56) units/L Alkaline Phosphatase 105 (35-129) units/L Total Protein 7.5 (6.3-8.2) g/dL Albumin 3.4 L (3.9-5) g/dL Assessment and Plan Atrial fibrillation on Eliquis as an outpatient normal LVEF by echo this presentation Hx of CAD COPD exacerbation Pneumonia Hx of PVD
[2020-09-13] MEDS: guaiFENesin DM 200/20 MG ORAL LIQD 10 ML PO PRN ×3 (09:51→23:00)
[2020-09-13] MEDS: APIXABAN 2.5 MG TAB PO SCH ×2 (09:52→23:00)
[2020-09-13] MEDS: carvediloL 3.125 MG TAB PO SCH ×2 (09:52→23:00)
[2020-09-13] MEDS: AMIODARONE 200 MG TAB PO SCH ×2 (09:52→23:00)
[2020-09-13] MEDS: CETIRIZINE 10 MG TAB PO SCH (09:52)
[2020-09-13] MEDS: LOSARTAN 50 MG TAB PO SCH (09:52)
[2020-09-13] MEDS: CLOPIDOGREL 75 MG TAB PO SCH (09:52)
[2020-09-13] MEDS: CHOLECALCIFEROL (VIT D3) 1000 UNIT (25 mcg) TAB PO SCH (09:52)
[2020-09-13] MEDS: EZETIMIBE 10 MG TAB PO SCH (09:52)
[2020-09-13] MEDS: ZINC SULFATE 220 MG CAP PO SCH ×2 (09:53→23:01)
--- NOTE | 2020-09-13 09:59 | Consultation ---
History of Present Illness Consult date: 09/13/20 Reason for consult: hypoxemia, abnormal CXR/CT History of present illness: 85 y/o male, last seen by my group in November of 2018, in the hospital in 2016 who presents with worsening hypoxemia on 6 liters of oxygen. Patient on 5 at home but did not improve with increase to 6 liters so came to ED. Required bipap briefly but is now back on baseline flow with sats in the low 90's. BNP was elevated but all other labs unremarkable. 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 Has not had biopsy and does not need one. No fever,no sick contacts. 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 denies: smoking, alcohol abuse, prescription drug abuse Family history: diabetes, hypertension Medications and Allergies Allergies Allergy/AdvReac Type Severity Reaction Status Date / Time No Known Allergies Allergy Verified 10/26/13 18:06 Home Medications Medication Instructions Recorded Confirmed Last Taken Type Aspirin [Aspirin BABY CHEW TAB] 81 mg PO ONCE 10/26/13 09/13/20 10/28/16 History Budesonide [Pulmicort Respules] 0.5 mg IH BID 10/26/13 09/13/20 Unknown History Clopidogrel Bisulfate [Plavix] 75 mg PO DAILY 10/26/13 09/13/20 10/28/16 History Ezetimibe [Zetia] 10 mg PO QDAY 10/26/13 09/13/20 10/28/16 History Simvastatin (Nf) [Zocor TAB] 40 mg PO ONCE 10/26/13 09/13/20 10/28/16 History Fluticasone [Flonase] 1 spray NS QDAY 10/28/16 09/13/20 10/28/16 History Losartan [Cozaar] 50 mg PO QDAY 10/28/16 09/13/20 10/28/16 History carvediloL [Coreg] 3.125 mg PO BID 10/28/16 09/13/20 10/28/16 History Amiodarone [Cordarone 200 MG TAB] 200 mg PO BID #60 tablet 11/02/16 09/13/20 Unknown Rx Furosemide [Lasix TAB] 20 mg PO QDAY #30 tablet 11/02/16 09/13/20 Unknown Rx Loratadine (Nf) [Claritin (Nf)] 10 mg PO QDAY #10 tablet 11/02/16 09/13/20 Unknown Rx Prednisone [predniSONE 10 mg 10 mg PO .TAPER #1 tab.ds.pk 11/02/16 09/13/20 Unknown Rx (6-Day Pack, 21 Tabs)] guaiFENesin DM [Robitussin Dm] 10 ml PO Q4H PRN 10 Days oral.liqd 11/02/16 09/13/20 Unknown Rx Clindamycin [Clindamycin CAP] 600 mg PO TID #36 capsule 12/03/16 09/13/20 Unknown Rx Warfarin [Coumadin] 5 mg PO DAILY@1700 tablet 12/03/16 09/13/20 Unknown Rx Acetaminophen [Tylenol Arthritis] 650 mg PO Q6HR PRN #30 tablet.er 12/17/17 09/13/20 Unknown Rx Albuterol Sulfate [Proair 90 mcg IH Q4HR PRN #2 aer.pow.ba 12/17/17 09/13/20 Unknown Rx Respiclick] Ipratropium [place] [Atrovent Hfa] 12.9 gm IH Q4HR #2 hfa.aer.ad 12/17/17 09/13/20 Unknown Rx Lidocaine [Lidoderm] 1 each TP QDAY #5 adh..patch 12/17/17 09/13/20 Unknown Rx predniSONE [Deltasone] 40 mg PO QDAY #8 tab 12/17/17 09/13/20 Unknown Rx Active Meds: Active Medications Acetaminophen (Acetaminophen 325 Mg Tab) 650 mg PO Q6HR PRN PRN Reason: Pain, Mild (1-3) Amiodarone HCl (Amiodarone 200 Mg Tab) 200 mg PO BID [facility] Last Admin: 09/13/20 09:52 Dose: 200 mg Documented by: Apixaban (Apixaban 2.5 Mg Tab) 2.5 mg PO Q12HR [facility]; Protocol Stop: 10/17/20 21:59 Last Admin: 09/13/20 09:52 Dose: 2.5 mg Documented by: Ascorbic Acid (Ascorbic Acid 500 Mg Tab) 500 mg PO BID [facility] Last Admin: 09/13/20 09:52 Dose: 500 mg Documented by: Aspirin (Aspirin 81 Mg Tab Chew) 81 mg PO ONCE [facility] Carvedilol (Carvedilol 3.125 Mg Tab) 3.125 mg PO BID [facility] Last Admin: 09/13/20 09:52 Dose: 3.125 mg Documented by: Cetirizine HCl (Cetirizine 10 Mg Tab) 10 mg PO DAILY [facility] Last Admin: 09/13/20 09:52 Dose: 10 mg Documented by: Cholecalciferol (Cholecalciferol (Vit D3) 1000 Unit (25 Mcg) Tab) 1,000 unit PO QDAY [facility] Last Admin: 09/13/20 09:52 Dose: 1,000 unit Documented by: Clopidogrel Bisulfate (Clopidogrel 75 Mg Tab) 75 mg PO DAILY [facility] Last Admin: 09/13/20 09:52 Dose: 75 mg Documented by: Ezetimibe (Ezetimibe 10 Mg Tab) 10 mg PO QDAY [facility] Last Admin: 09/13/20 09:52 Dose: 10 mg Documented by: Guaifenesin (Guaifenesin Dm 200/20 Mg Oral Liqd 10 Ml) 10 ml PO Q4H PRN PRN Reason: Cough Last Admin: 09/13/20 09:51 Dose: 10 ml Documented by: Vancomycin HCl 1,250 mg/ (Sodium Chloride) 275 mls @ 166.667 mls/hr IV Q24H [facility] Cefepime HCl (Cefepime/Ns 2 Gm/100 Ml) 2 gm in 100 mls @ 200 mls/hr IV Q8H [facility]; Protocol Last Admin: 09/13/20 09:51 Dose: 200 mls/hr Documented by: Lidocaine (Lidocaine 5% 1 Each Patch) 1 each TD QDAY [facility] Losartan Potassium (Losartan 50 Mg Tab) 50 mg PO QDAY [facility] Last Admin: 09/13/20 09:52 Dose: 50 mg Documented by: Methylprednisolone Sodium Succinate (Methylprednisolone Sod Succinate 40 Mg/1 Ml Inj) 40 mg IV Q8HR [facility] Last Admin: 09/13/20 05:56 Dose: 40 mg Documented by: Pravastatin Sodium (Pravastatin 40 Mg Tab) 40 mg PO QHS [facility] Last Admin: 09/12/20 23:17 Dose: 40 mg Documented by: Sodium Chloride (Sodium Chloride 0.9% 10 Ml Flush Syringe) 10 ml IV BID [facility] Last Admin: 09/13/20 09:53 Dose: 10 ml Documented by: Sodium Chloride (Sodium Chloride 0.9% 10 Ml Flush Syringe) 10 ml IV PRN PRN PRN Reason: LINE FLUSH Stop: 09/23/20 12:59 Zinc Sulfate (Zinc Sulfate 220 Mg Cap) 220 mg PO BID [facility] Last Admin: 09/13/20 09:53 Dose: 220 mg Documented by: Physical Examination Vital signs: Vital Signs Pulse Resp BP Pulse Ox 77 40 H 150/62 93 09/12/20 10:15 09/12/20 10:15 09/12/20 10:15 09/12/20 10:15 Results - Laboratory Findings CBC and BMP: 09/13/20 07:43 09/13/20 07:43 ABG ABG pH 7.448 (7.320-7.450) 09/12/20 12:15 POC ABG pCO2 27.3 mmHg (32.0-48.0) L 09/12/20 12:15 POC ABG pO2 79.9 mmHg (83-108) L 09/12/20 12:15 POC ABG HCO3 18.5 09/12/20 12:15 ABG O2 Saturation 96.3 (0-100) 09/12/20 12:15 PT/INR, D-dimer PT 16.2 Sec. (12.2-14.9) H 09/12/20 12:47 INR 1.25 (0.87-1.13) H 09/12/20 12:47 D-Dimer 403.72 ng/mlDDU (0-234) H 09/12/20 12:47 Abnormal lab findings: Abnormal Labs 09/12/20 09/12/20 09/12/20 11:20 11:20 11:20 Hct 35.4 L RDW 15.9 H Lymph % (Auto) 7.9 L Lymph # (Auto) 0.8 L Seg Neutrophils % 88.4 H Seg Neutrophils # 8.6 H PT 15.4 H INR 1.17 H D-Dimer POC ABG pCO2 POC ABG pO2 ABG Sodium ABG Chloride ABG Glucose Sodium 130 L Potassium Chloride 93.5 L BUN 5 L Creatinine 0.6 L Glucose 118 H Magnesium Lactate Dehydrogenase C-Reactive Protein NT-Pro-B Natriuret Pep 2014 H Albumin 3.6 L Arterial Blood Glucose Arterial Blood Ionized Calcium 09/12/20 09/12/20 09/12/20 12:15 12:42 12:42 Hct 35.4 L RDW 15.7 H Lymph % (Auto) Lymph # (Auto) Seg Neutrophils % Seg Neutrophils # PT INR D-Dimer POC ABG pCO2 27.3 L POC ABG pO2 79.9 L ABG Sodium 129.0 L ABG Chloride 97.0 L ABG Glucose 153 H Sodium Potassium Chloride BUN Creatinine 0.6 L Glucose Magnesium Lactate Dehydrogenase C-Reactive Protein NT-Pro-B Natriuret Pep Albumin Arterial Blood Glucose 153 H Arterial Blood Ionized Calcium 4.5 L 09/12/20 09/12/20 09/12/20 12:47 13:40 13:40 Hct RDW Lymph % (Auto) Lymph # (Auto) Seg Neutrophils % Seg Neutrophils # PT 16.2 H INR 1.25 H D-Dimer 403.72 H POC ABG pCO2 POC ABG pO2 ABG Sodium ABG Chloride ABG Glucose Sodium Potassium Chloride BUN Creatinine Glucose 103 H Magnesium 2.50 H Lactate Dehydrogenase 273 H C-Reactive Protein 5.40 H NT-Pro-B Natriuret Pep Albumin Arterial Blood Glucose Arterial Blood Ionized Calcium 09/13/20 09/13/20 07:43 07:43 Hct RDW 16.0 H Lymph % (Auto) 12.4 L Lymph # (Auto) 0.8 L Seg Neutrophils % 85.6 H Seg Neutrophils # PT INR D-Dimer POC ABG pCO2 POC ABG pO2 ABG Sodium ABG Chloride ABG Glucose Sodium 135 L Potassium 5.1 H D Chloride BUN Creatinine 0.6 L Glucose 144 H Magnesium Lactate Dehydrogenase C-Reactive Protein NT-Pro-B Natriuret Pep Albumin 3.4 L Arterial Blood Glucose Arterial Blood Ionized Calcium - Diagnostic Findings Chest x-ray: image reviewed Assessment and Plan 85 y/o male with exacerbation of his ILD, most likely secondary to volume overload and COPD exacerbation. 1. WIll give a one time dose of IV lasix now and patient likely will need home dosing of lasix at discharge. I suspect he has pulmonary HTN from his ILD and should be kept as dry as possible or as dry as bp and renal function will allow. 2. Suggest obtaing 2 D echo to look for Pulm HTN as well as to make sure systolic function is still normal 3. VTE is on the differential for exacerbation of ILD, however don't feel CTA is needed at this time. If echo suggest rv strain could consider obtaining CTA 4. Would switch to prednisone 60 daily and taper as follows: 60 daily for 3 days, 40 daily for 3 days then 20 daily for 3 days then stop. 5. Not sure why patient has not followed up with Dr. Francis but is welcome to come back to the office post discharge 6. He will need a walk test prior to discharge to see what his new exertional oxygen requirement may be. Given age and underlying lung disease, prognosis is guarded.
[2020-09-13] MEDS: LIDOCAINE 5% 1 EACH PATCH TD SCH (10:00)
[2020-09-13] MEDS ORDERED: NON-FORMULARY EACH (Loratadine (Nf) 10 MG Tablet) PO SCH (10:00)
--- NOTE | 2020-09-13 12:32 | Progress Note ---
Assessment and Plan Patient is an 85-year old M with chronic respiratory failure, severe COPD on home oxygen, atrial fibrillation on Eliquis who presents with worsening shortness of breath, cough, and wheezing. Chest x- ray reports findings of bilateral pulmonary opacities. A/P -- Acute on chronic respiratory failure with hypoxemia Patient on 4 to 5 L oxygen at home Likely due to COPD exacerbation with underlying pneumonia Continue supplemental oxygen, noninvasive positive pressure ventilation as needed, nebulizer breathing treatment, empiric steroid, IV antibiotics pulmonary team consulted, continue medical management. --Bilateral pneumonia Community-acquired versus Covid PUI Pneumonia protocol: IV antibiotic therapy, blood culture, supplemental oxygen, pulse oximetry. Nebulizer therapy. -- Suspected 2019 novel coronavirus infection Coronavirus protocol: Coronavirus PCR ordered and is pending at time of admission, IV antibiotic therapy, IV steroid therapy, vitamin C therapy, vitamin D therapy, zinc therapy, contact precautions, isolation precautions. Continue therapeutic anticoagulation. --Acute on chronic diastolic CHF cardiology team consulted, echocardiogram, BNP, thyroid panel, magnesium level, afterload reduction, Continue Lasix IV, -- Atrial fibrillation/flutter Rate control, continue therapeutic anticoagulation, cardiology team consulted. --Hyperkalemia, follow BMP Kayexalate as needed --Peripheral arterial disease, patient on aspirin Plavix and statin -- DVT prophylaxis SCD to bilateral lower extremities while in bed, continue therapeutic anticoagulation Daily clinical course: 09/13/20: Pending COVID-19 test, 2D echo showed EF 50 to 55%. Amiodarone has been started for his atrial flutter. Continue current care, follow clinically. Patient on 8 L nasal cannula, wean off as tolerated Subjective Date of service: 09/13/20 Interval history: Patient seen and examined. Medical records and medication list reviewed. No acute event overnight noted by the RN. Patient denies any chest pain but complains of difficulty breathing. Patient is tolerating diet. Discussed plan of care at bedside with patient. Objective - Exam Narrative Exam: GENERAL: well-developed elderly white male lying on bed appeared to be in mild discomfort. HEENT: Normocephalic. Atraumatic. No conjunctival congestion or icterus. Patient has moist mucous membranes. NECK: Supple. Trachea midline. CHEST/LUNGS: Diminished breath sound with rhonchi auscultated bilaterally, breathing slightly labored. HEART/CARDIOVASCULAR: Regular in rate and rhythm. S1 and S2 positive. ABDOMEN: Abdomen is soft, nontender. Patient has normal bowel sounds. SKIN: There is no rash. Warm and dry. NEURO: No focal motor deficit. Follows command. MUSCULOSKELETAL: No joint effusion or tenderness. EXTRIMITY: No edema, no cyanosis or clubbing. PSYCH: Cooperative but anxious. - Constitutional Vitals: Vital Signs - 12hr 09/13/20 09/13/20 09/13/20 00:40 00:50 01:00 Temperature Pulse Rate Respiratory 13 20 25 H Rate Blood Pressure 129/53 129/53 131/55 Blood Pressure [Left] O2 Sat by Pulse 92 91 92 Oximetry 09/13/20 09/13/20 09/13/20 01:10 01:13 01:20 Temperature Pulse Rate 71 Respiratory 22 24 14 Rate Blood Pressure 131/55 131/55 Blood Pressure 131/55 [Left] O2 Sat by Pulse 89 92 94 Oximetry 09/13/20 09/13/20 09/13/20 01:30 01:40 01:50 Temperature Pulse Rate Respiratory 17 29 H 20 Rate Blood Pressure 131/55 131/55 131/55 Blood Pressure [Left] O2 Sat by Pulse 93 89 90 Oximetry 09/13/20 09/13/20 09/13/20 02:52 02:54 03:50 Temperature 97.5 F L Pulse Rate 71 72 Respiratory 20 22 Rate Blood Pressure 155/69 Blood Pressure [Left] O2 Sat by Pulse 92 94 Oximetry 09/13/20 09/13/20 09/13/20 04:16 06:49 08:00 Temperature 97.7 F Pulse Rate 71 Respiratory 20 Rate Blood Pressure 131/55 132/59 Blood Pressure [Left] O2 Sat by Pulse 100 88 92 Oximetry 09/13/20 09:59 Temperature Pulse Rate Respiratory 24 Rate Blood Pressure Blood Pressure [Left] O2 Sat by Pulse 94 Oximetry - Labs CBC & Chem 7: 09/14/20 05:33 09/14/20 10:04 Labs: Abnormal lab results 09/12/20 09/12/20 09/12/20 Range/Units 12:15 12:42 12:42 Hct 35.4 L (35.5-45.6) % RDW 15.7 H (13.2-15.2) % Lymph % (Auto) (13.4-35.0) % Lymph # (Auto) (1.2-5.4) K/mm3 Seg Neutrophils % (40.0-70.0) % PT (12.2-14.9) Sec. INR (0.87-1.13) D-Dimer (0-234) ng/mlDDU POC ABG pCO2 27.3 L (32.0-48.0) mmHg POC ABG pO2 79.9 L (83-108) mmHg ABG Sodium 129.0 L (136.0-145.0) mmol/L ABG Chloride 97.0 L (98-107) mmol/L ABG Glucose 153 H (65-95) mg/dL Sodium (137-145) mmol/L Potassium (3.6-5.0) mmol/L Creatinine 0.6 L (0.8-1.3) mg/dL Glucose (75-100) mg/dL Magnesium (1.7-2.3) mg/dL Lactate Dehydrogenase (91-180) units/L C-Reactive Protein (0.00-1.30) mg/dL Albumin (3.9-5) g/dL Arterial Blood Glucose 153 H (65-95) mg/dL Arterial Blood Ionized Calcium 4.5 L (4.6-5.3) mg/dL 09/12/20 09/12/20 09/12/20 Range/Units 12:47 13:40 13:40 Hct (35.5-45.6) % RDW (13.2-15.2) % Lymph % (Auto) (13.4-35.0) % Lymph # (Auto) (1.2-5.4) K/mm3 Seg Neutrophils % (40.0-70.0) % PT 16.2 H (12.2-14.9) Sec. INR 1.25 H (0.87-1.13) D-Dimer 403.72 H (0-234) ng/mlDDU POC ABG pCO2 (32.0-48.0) mmHg POC ABG pO2 (83-108) mmHg ABG Sodium (136.0-145.0) mmol/L ABG Chloride (98-107) mmol/L ABG Glucose (65-95) mg/dL Sodium (137-145) mmol/L Potassium (3.6-5.0) mmol/L Creatinine (0.8-1.3) mg/dL Glucose 103 H (75-100) mg/dL Magnesium 2.50 H (1.7-2.3) mg/dL Lactate Dehydrogenase 273 H (91-180) units/L C-Reactive Protein 5.40 H (0.00-1.30) mg/dL Albumin (3.9-5) g/dL Arterial Blood Glucose (65-95) mg/dL Arterial Blood Ionized Calcium (4.6-5.3) mg/dL 09/13/20 09/13/20 Range/Units 07:43 07:43 Hct (35.5-45.6) % RDW 16.0 H (13.2-15.2) % Lymph % (Auto) 12.4 L (13.4-35.0) % Lymph # (Auto) 0.8 L (1.2-5.4) K/mm3 Seg Neutrophils % 85.6 H (40.0-70.0) % PT (12.2-14.9) Sec. INR (0.87-1.13) D-Dimer (0-234) ng/mlDDU POC ABG pCO2 (32.0-48.0) mmHg POC ABG pO2 (83-108) mmHg ABG Sodium (136.0-145.0) mmol/L ABG Chloride (98-107) mmol/L ABG Glucose (65-95) mg/dL Sodium 135 L (137-145) mmol/L Potassium 5.1 H D (3.6-5.0) mmol/L Creatinine 0.6 L (0.8-1.3) mg/dL Glucose 144 H (75-100) mg/dL Magnesium (1.7-2.3) mg/dL Lactate Dehydrogenase (91-180) units/L C-Reactive Protein (0.00-1.30) mg/dL Albumin 3.4 L (3.9-5) g/dL Arterial Blood Glucose (65-95) mg/dL Arterial Blood Ionized Calcium (4.6-5.3) mg/dL HEART Score - HEART Score Troponin: Troponin T < 0.010 ng/mL (0.00-0.029) 09/12/20 16:46
[2020-09-13] MEDS: VANCOMYCIN 1,250 MG in SODIUM CHLORIDE 0.9% 250ML 250 ML IV SCH (14:11)
[2020-09-13] MEDS: FUROSEMIDE 20 MG/2 ML INJ IV SCH ×2 (14:11→17:56)
[2020-09-13] MEDS ORDERED: ALBUTEROL 2.5 MG/3 ML NEBU IH PRN (14:14)
--- NOTE | 2020-09-13 14:14 | Electrocardiograph Report ---
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
[2020-09-13] MEDS: IPRATROPIUM/ALBUTEROL SULFATE 3 ML AMPUL.NEB IH SCH (20:05)
[2020-09-13] MEDS: PRAVASTATIN 40 MG TAB PO SCH (23:00)
[2020-09-14] MEDS: CEFEPIME/NS 2 GM/100 ML 2 GM/100 ML BAG IV SCH ×3 (00:37→21:36)
[2020-09-14] MEDS: FUROSEMIDE 20 MG/2 ML INJ IV SCH ×2 (05:47→17:34)
[2020-09-14] MEDS: methylPREDNISolone Sod Succinate 40 MG/1 ML INJ IV SCH ×3 (05:47→21:31)
[2020-09-14 06:53] LABS: Hematocrit 31.4 % (35.5-45.6); Hemoglobin 11.2 gm/dl (11.8-15.2); Mean Corpuscular HGB Conc 36 % (32-34); Mean Corpuscular Volume 88 fl (84-94); Platelet Count 306 K/mm3 (140-440); Red Blood Count 3.59 M/mm3 (3.65-5.03); Red Cell Distribution Width 16.2 % (13.2-15.2)
[2020-09-14] MEDS: IPRATROPIUM/ALBUTEROL SULFATE 3 ML AMPUL.NEB IH SCH ×2 (07:51→13:52)
[2020-09-14] MEDS: BUDESONIDE 0.5 MG/2 ML NEBU IH SCH (08:35)
[2020-09-14] MEDS ORDERED: FUROSEMIDE 40 MG/4 ML INJ IV ONE ×2 (09:19)
--- NOTE | 2020-09-14 09:24 | Progress Note ---
Assessment and Plan 85 y/o male with exacerbation of his ILD, most likely secondary to volume overload and COPD exacerbation. 09/14/20: Agree with BID dosing of lasix but I gave an additional 20 today on top of the 20 BID ordered by IMS. Please order strict i/o. If no improvement with increased diuretic therapy, tomorrow would increase steroids to [id number]. Guarded prognosis. need to discuss code status with patient. Will attempt to do later today. 1. WIll give a one time dose of IV lasix now and patient likely will need home dosing of lasix at discharge. I suspect he has pulmonary HTN from his ILD and should be kept as dry as possible or as dry as bp and renal function will allow. 2. Suggest obtaing 2 D echo to look for Pulm HTN as well as to make sure systolic function is still normal 3. VTE is on the differential for exacerbation of ILD, however don't feel CTA is needed at this time. If echo suggest rv strain could consider obtaining CTA 4. Would switch to prednisone 60 daily and taper as follows: 60 daily for 3 days, 40 daily for 3 days then 20 daily for 3 days then stop. 5. Not sure why patient has not followed up with Dr. Francis but is welcome to come back to the office post discharge 6. He will need a walk test prior to discharge to see what his new exertional oxygen requirement may be. Given age and underlying lung disease, prognosis is guarded. Subjective Date of service: 09/14/20 Interval history: Worsening oxygen requirement overnight. Now on HFNC. Got lasix 20 yesterday but no strict I/O's. Hypertensive this am. Objective Vital Signs - 12hr 09/13/20 09/13/20 09/14/20 22:00 22:53 04:42 Temperature 98.3 F 97.9 F Pulse Rate 109 H 109 H 74 Pulse Rate [ Anterior Bilateral Throughout] Respiratory 24 20 20 Rate Respiratory Rate [Anterior Bilateral Throughout] Blood Pressure 170/82 169/64 O2 Sat by Pulse 94 76 L 76 L Oximetry 09/14/20 09/14/20 07:53 08:37 Temperature Pulse Rate Pulse Rate [ 86 Anterior Bilateral Throughout] Respiratory Rate Respiratory 18 Rate [Anterior Bilateral Throughout] Blood Pressure O2 Sat by Pulse 79 L 88 Oximetry CBC and BMP: 09/14/20 05:33 09/13/20 07:43 ABG, PT/INR, D-dimer: ABG ABG pH 7.448 (7.320-7.450) 09/12/20 12:15 POC ABG pCO2 27.3 mmHg (32.0-48.0) L 09/12/20 12:15 POC ABG pO2 79.9 mmHg (83-108) L 09/12/20 12:15 POC ABG HCO3 18.5 09/12/20 12:15 ABG O2 Saturation 96.3 (0-100) 09/12/20 12:15 PT/INR, D-dimer PT 16.2 Sec. (12.2-14.9) H 09/12/20 12:47 INR 1.25 (0.87-1.13) H 09/12/20 12:47 D-Dimer 403.72 ng/mlDDU (0-234) H 09/12/20 12:47 Abnormal lab findings: Abnormal Labs 09/12/20 09/12/20 09/12/20 11:20 11:20 11:20 WBC RBC Hgb Hct 35.4 L MCHC RDW 15.9 H Lymph % (Auto) 7.9 L Lymph # (Auto) 0.8 L Seg Neutrophils % 88.4 H Seg Neutrophils # 8.6 H PT 15.4 H INR 1.17 H D-Dimer POC ABG pCO2 POC ABG pO2 ABG Sodium ABG Chloride ABG Glucose Sodium 130 L Potassium Chloride 93.5 L BUN 5 L Creatinine 0.6 L Glucose 118 H Magnesium Lactate Dehydrogenase C-Reactive Protein NT-Pro-B Natriuret Pep 2014 H Albumin 3.6 L Arterial Blood Glucose Arterial Blood Ionized Calcium 09/12/20 09/12/20 09/12/20 12:15 12:42 12:42 WBC RBC Hgb Hct 35.4 L MCHC RDW 15.7 H Lymph % (Auto) Lymph # (Auto) Seg Neutrophils % Seg Neutrophils # PT INR D-Dimer POC ABG pCO2 27.3 L POC ABG pO2 79.9 L ABG Sodium 129.0 L ABG Chloride 97.0 L ABG Glucose 153 H Sodium Potassium Chloride BUN Creatinine 0.6 L Glucose Magnesium Lactate Dehydrogenase C-Reactive Protein NT-Pro-B Natriuret Pep Albumin Arterial Blood Glucose 153 H Arterial Blood Ionized Calcium 4.5 L 09/12/20 09/12/20 09/12/20 12:47 13:40 13:40 WBC RBC Hgb Hct MCHC RDW Lymph % (Auto) Lymph # (Auto) Seg Neutrophils % Seg Neutrophils # PT 16.2 H INR 1.25 H D-Dimer 403.72 H POC ABG pCO2 POC ABG pO2 ABG Sodium ABG Chloride ABG Glucose Sodium Potassium Chloride BUN Creatinine Glucose 103 H Magnesium 2.50 H Lactate Dehydrogenase 273 H C-Reactive Protein 5.40 H NT-Pro-B Natriuret Pep Albumin Arterial Blood Glucose Arterial Blood Ionized Calcium 09/13/20 09/13/20 09/14/20 07:43 07:43 05:33 WBC 11.5 H RBC 3.59 L Hgb 11.2 L Hct 31.4 L MCHC 36 H RDW 16.0 H 16.2 H Lymph % (Auto) 12.4 L Lymph # (Auto) 0.8 L Seg Neutrophils % 85.6 H Seg Neutrophils # PT INR D-Dimer POC ABG pCO2 POC ABG pO2 ABG Sodium ABG Chloride ABG Glucose Sodium 135 L Potassium 5.1 H D Chloride BUN Creatinine 0.6 L Glucose 144 H Magnesium Lactate Dehydrogenase C-Reactive Protein NT-Pro-B Natriuret Pep Albumin 3.4 L Arterial Blood Glucose Arterial Blood Ionized Calcium
[2020-09-14] MEDS: LIDOCAINE 5% 1 EACH PATCH TD SCH ×2 (09:34→11:30)
[2020-09-14] MEDS: APIXABAN 2.5 MG TAB PO SCH ×2 (09:35→21:30)
[2020-09-14] MEDS: CETIRIZINE 10 MG TAB PO SCH (09:35)
[2020-09-14] MEDS: CHOLECALCIFEROL (VIT D3) 1000 UNIT (25 mcg) TAB PO SCH (09:35)
[2020-09-14] MEDS: ASCORBIC ACID 500 MG TAB PO SCH ×2 (09:35→21:30)
[2020-09-14] MEDS: ZINC SULFATE 220 MG CAP PO SCH ×2 (09:35→21:31)
[2020-09-14] MEDS: carvediloL 3.125 MG TAB PO SCH ×2 (09:35→21:31)
[2020-09-14] MEDS: LOSARTAN 50 MG TAB PO SCH (09:36)
[2020-09-14] MEDS: AMIODARONE 200 MG TAB PO SCH ×2 (09:36→21:30)
[2020-09-14] MEDS: CLOPIDOGREL 75 MG TAB PO SCH (09:36)
[2020-09-14] MEDS: EZETIMIBE 10 MG TAB PO SCH (09:36)
--- NOTE | 2020-09-14 09:41 | Progress Note ---
Assessment and Plan Hx of Paroxysmal Atrial fibrillation/flutter on Eliquis as an outpatient normal LVEF by echo this presentation Hx of CAD COPD exacerbation Possible pneumonia Hx of PAD - on plavix Recommendations: Continue amiodarone and oral anticoagulation for management of atrial flutter. Otherwise, conservative cardiac management. Subjective Date of service: 09/14/20 Interval history: Complains of continued shortness of breath and cough. On high flow oxygen. Currently, threat monitoring analyst shows atrial flutter with a well controlled ventricular rate. Objective Vital Signs Temp Pulse Pulse Resp Resp BP Pulse Ox 09/14/20 08:37 88 09/14/20 07:53 86 18 79 L 09/14/20 04:42 97.9 F 74 20 169/64 76 L 09/13/20 22:53 98.3 F 109 H 20 170/82 76 L 09/13/20 22:00 109 H 24 94 09/13/20 20:09 94 09/13/20 20:06 74 18 09/13/20 14:38 91 H 18 92 09/13/20 14:13 92 09/13/20 10:25 97.9 F 121 H 32 H 149/65 90 09/13/20 09:59 24 94 - Physical Examination General: No Apparent Distress HEENT: Positive: PERRL Neck: Positive: trachea midline Cardiac: Positive: irregularly irregular Lungs: Positive: Decreased Breath Sounds - Labs and Meds CBC 09/14/20 Range/Units 05:33 WBC 11.5 H (4.5-11.0) K/mm3 RBC 3.59 L (3.65-5.03) M/mm3 Hgb 11.2 L (11.8-15.2) gm/dl Hct 31.4 L (35.5-45.6) % Plt Count 306 (140-440) K/mm3
[2020-09-14] MEDS: guaiFENesin DM 200/20 MG ORAL LIQD 10 ML PO PRN ×2 (09:46→19:04)
[2020-09-14 10:40] LABS: BUN/Creatinine Ratio 23; Blood Urea Nitrogen 18 mg/dL (9-20); Calcium 8.2 mg/dL (8.4-10.2); Hemolysis Index 1
--- NOTE | 2020-09-14 14:14 | Progress Note ---
Assessment and Plan Patient is an 85-year old M with chronic respiratory failure, severe COPD on home oxygen, atrial fibrillation on Eliquis who presents with worsening shortness of breath, cough, and wheezing. Chest x- ray reports findings of bilateral pulmonary opacities. A/P -- Acute on chronic respiratory failure with hypoxemia Patient on 4 to 5 L oxygen at home Likely due to COPD exacerbation with underlying pneumonia Continue supplemental oxygen, noninvasive positive pressure ventilation as needed, nebulizer breathing treatment, empiric steroid, IV antibiotics pulmonary team consulted, continue medical management. --Bilateral pneumonia , likely community-acquired Pneumonia protocol: IV antibiotic therapy, blood culture, supplemental oxygen, pulse oximetry. Nebulizer therapy. -- Suspected 2019 novel coronavirus infection, ruled out with a negative test --Acute on chronic diastolic CHF cardiology team consulted, echocardiogram, BNP, thyroid panel, magnesium level, afterload reduction, Continue Lasix IV, -- Atrial fibrillation/flutter Rate control, continue therapeutic anticoagulation, cardiology team consulted. --Hyperkalemia, follow BMP Kayexalate as needed --Peripheral arterial disease, patient on aspirin Plavix and statin -- DVT prophylaxis SCD to bilateral lower extremities while in bed, continue therapeutic anticoagulation Daily clinical course: 09/13/20: Pending COVID-19 test, 2D echo showed EF 50 to 55%. Amiodarone has been started for his atrial flutter. Continue current care, follow clinically. Patient on 8 L nasal cannula, wean off as tolerated 09/14/20: Patient placed on high flow O2 today, Covid test is negative. Continue to treat for community-acquired pneumonia. Continue empiric steroid, IV antibiotics and nebulizer breathing treatment along with IV diuresis. Monitor ins and O's. Repeat chest x-ray tomorrow morning Subjective Date of service: 09/14/20 Interval history: Patient seen and examined. Medical records and medication list reviewed. No acute event overnight noted by the RN. Patient denies any chest pain but complains of difficulty breathing. Patient is tolerating diet. His oxygen requirement has trended up -he is currently on high flow oxygen Discussed plan of care at bedside with patient. Objective - Exam Narrative Exam: GENERAL: well-developed elderly white male lying on bed appeared to be in mild discomfort. HEENT: Normocephalic. Atraumatic. No conjunctival congestion or icterus. Patient has moist mucous membranes. NECK: Supple. Trachea midline. CHEST/LUNGS: Diminished breath sound with rhonchi auscultated bilaterally, breathing slightly labored. HEART/CARDIOVASCULAR: Regular in rate and rhythm. S1 and S2 positive. ABDOMEN: Abdomen is soft, nontender. Patient has normal bowel sounds. SKIN: There is no rash. Warm and dry. NEURO: No focal motor deficit. Follows command. MUSCULOSKELETAL: No joint effusion or tenderness. EXTRIMITY: No edema, no cyanosis or clubbing. PSYCH: Cooperative but anxious. - Constitutional Vitals: Vital Signs - 12hr 09/14/20 09/14/20 09/14/20 04:42 07:53 08:37 Temperature 97.9 F Pulse Rate 74 Pulse Rate [ 86 Anterior Bilateral Throughout] Pulse Rate [ Apical] Respiratory 20 Rate Respiratory 18 Rate [Anterior Bilateral Throughout] Blood Pressure 169/64 O2 Sat by Pulse 76 L 79 L 88 Oximetry 09/14/20 09/14/20 09/14/20 09:35 09:36 10:00 Temperature Pulse Rate 73 73 Pulse Rate [ Anterior Bilateral Throughout] Pulse Rate [ 73 Apical] Respiratory Rate Respiratory Rate [Anterior Bilateral Throughout] Blood Pressure 147/70 147/70 O2 Sat by Pulse Oximetry 09/14/20 09/14/20 09/14/20 11:30 11:56 13:54 Temperature 97.8 F Pulse Rate 76 75 Pulse Rate [ 78 Anterior Bilateral Throughout] Pulse Rate [ Apical] Respiratory 32 H Rate Respiratory 20 Rate [Anterior Bilateral Throughout] Blood Pressure 139/65 O2 Sat by Pulse 94 Oximetry - Labs CBC & Chem 7: 09/14/20 05:33 09/14/20 10:04 Labs: Abnormal lab results 09/14/20 09/14/20 Range/Units 05:33 10:04 WBC 11.5 H (4.5-11.0) K/mm3 RBC 3.59 L (3.65-5.03) M/mm3 Hgb 11.2 L (11.8-15.2) gm/dl Hct 31.4 L (35.5-45.6) % MCHC 36 H (32-34) % RDW 16.2 H (13.2-15.2) % Sodium 135 L (137-145) mmol/L Chloride 97.5 L (98-107) mmol/L Glucose 213 H (75-100) mg/dL Calcium 8.2 L (8.4-10.2) mg/dL HEART Score - HEART Score Troponin: Troponin T < 0.010 ng/mL (0.00-0.029) 09/12/20 16:46
[2020-09-14] MEDS: VANCOMYCIN 1,250 MG in SODIUM CHLORIDE 0.9% 250ML 250 ML IV SCH (14:21)
[2020-09-14] MEDS: PRAVASTATIN 40 MG TAB PO SCH (21:31)
[2020-09-15] MEDS: methylPREDNISolone Sod Succinate 40 MG/1 ML INJ IV SCH ×3 (05:36→21:52)
[2020-09-15] MEDS: FUROSEMIDE 20 MG/2 ML INJ IV SCH ×2 (05:36→17:32)
[2020-09-15 07:04] LABS: Blood Urea Nitrogen 20 mg/dL (9-20); Hemolysis Index 0
[2020-09-15 07:11] LABS: BUN/Creatinine Ratio 33
--- NOTE | 2020-09-15 09:30 | Progress Note ---
Assessment and Plan - Patient Problems (1) Obesity Current Visit: Yes Status: Acute (2) Physical deconditioning Current Visit: Yes Status: Acute (3) Acute on chronic respiratory failure with hypoxemia Current Visit: Yes Status: Acute (4) Atrial fibrillation Current Visit: Yes Status: Acute Qualifiers: Atrial fibrillation type: longstanding persistent Qualified Code(s): I48.11 - Longstanding persistent atrial fibrillation (5) Bilateral pneumonia Current Visit: Yes Status: Acute Qualifiers: Pneumonia type: due to unspecified organism Lung location: unspecified part of lung Qualified Code(s): J18.9 - Pneumonia, unspecified organism (6) COPD exacerbation Current Visit: Yes Status: Acute (7) Diastolic CHF Current Visit: Yes Status: Acute Qualifiers: Heart failure chronicity: acute on chronic Qualified Code(s): I50.33 - Acute on chronic diastolic (congestive) heart failure Subjective Interval history: less sob today. still on HF 75% no new complaints Objective Vital Signs - 12hr 09/14/20 09/14/20 09/15/20 22:00 22:35 02:00 Temperature 97.9 F Pulse Rate 76 76 Pulse Rate [ 78 Apical] Respiratory 20 Rate Blood Pressure 160/66 O2 Sat by Pulse 94 93 Oximetry 09/15/20 09/15/20 05:32 08:31 Temperature 97.9 F Pulse Rate 74 Pulse Rate [ Apical] Respiratory 20 Rate Blood Pressure 142/68 O2 Sat by Pulse 96 95 Oximetry Constitutional: no acute distress Eyes: non-icteric ENT: oropharynx moist Neck: supple Effort: normal Ascultation: Bilateral: diminished breath sounds Cardiovascular: regular rate and rhythm Gastrointestinal: normoactive bowel sounds, non-tender, other (obese) Neurologic: non-focal exam Psychiatric: mood appropriate CBC and BMP: 09/14/20 05:33 09/15/20 05:21 ABG, PT/INR, D-dimer: ABG ABG pH 7.448 (7.320-7.450) 09/12/20 12:15 POC ABG pCO2 27.3 mmHg (32.0-48.0) L 09/12/20 12:15 POC ABG pO2 79.9 mmHg (83-108) L 09/12/20 12:15 POC ABG HCO3 18.5 09/12/20 12:15 ABG O2 Saturation 96.3 (0-100) 09/12/20 12:15 PT/INR, D-dimer PT 16.2 Sec. (12.2-14.9) H 09/12/20 12:47 INR 1.25 (0.87-1.13) H 09/12/20 12:47 D-Dimer 403.72 ng/mlDDU (0-234) H 09/12/20 12:47 Abnormal lab findings: Abnormal Labs 09/12/20 09/12/20 09/12/20 11:20 11:20 11:20 WBC RBC Hgb Hct 35.4 L MCHC RDW 15.9 H Lymph % (Auto) 7.9 L Lymph # (Auto) 0.8 L Seg Neutrophils % 88.4 H Seg Neutrophils # 8.6 H PT 15.4 H INR 1.17 H D-Dimer POC ABG pCO2 POC ABG pO2 ABG Sodium ABG Chloride ABG Glucose Sodium 130 L Potassium Chloride 93.5 L BUN 5 L Creatinine 0.6 L Glucose 118 H Calcium Magnesium Lactate Dehydrogenase C-Reactive Protein NT-Pro-B Natriuret Pep 2014 H Albumin 3.6 L Arterial Blood Glucose Arterial Blood Ionized Calcium 09/12/20 09/12/20 09/12/20 12:15 12:42 12:42 WBC RBC Hgb Hct 35.4 L MCHC RDW 15.7 H Lymph % (Auto) Lymph # (Auto) Seg Neutrophils % Seg Neutrophils # PT INR D-Dimer POC ABG pCO2 27.3 L POC ABG pO2 79.9 L ABG Sodium 129.0 L ABG Chloride 97.0 L ABG Glucose 153 H Sodium Potassium Chloride BUN Creatinine 0.6 L Glucose Calcium Magnesium Lactate Dehydrogenase C-Reactive Protein NT-Pro-B Natriuret Pep Albumin Arterial Blood Glucose 153 H Arterial Blood Ionized Calcium 4.5 L 09/12/20 09/12/20 09/12/20 12:47 13:40 13:40 WBC RBC Hgb Hct MCHC RDW Lymph % (Auto) Lymph # (Auto) Seg Neutrophils % Seg Neutrophils # PT 16.2 H INR 1.25 H D-Dimer 403.72 H POC ABG pCO2 POC ABG pO2 ABG Sodium ABG Chloride ABG Glucose Sodium Potassium Chloride BUN Creatinine Glucose 103 H Calcium Magnesium 2.50 H Lactate Dehydrogenase 273 H C-Reactive Protein 5.40 H NT-Pro-B Natriuret Pep Albumin Arterial Blood Glucose Arterial Blood Ionized Calcium 09/13/20 09/13/20 09/14/20 07:43 07:43 05:33 WBC 11.5 H RBC 3.59 L Hgb 11.2 L Hct 31.4 L MCHC 36 H RDW 16.0 H 16.2 H Lymph % (Auto) 12.4 L Lymph # (Auto) 0.8 L Seg Neutrophils % 85.6 H Seg Neutrophils # PT INR D-Dimer POC ABG pCO2 POC ABG pO2 ABG Sodium ABG Chloride ABG Glucose Sodium 135 L Potassium 5.1 H D Chloride BUN Creatinine 0.6 L Glucose 144 H Calcium Magnesium Lactate Dehydrogenase C-Reactive Protein NT-Pro-B Natriuret Pep Albumin 3.4 L Arterial Blood Glucose Arterial Blood Ionized Calcium 09/14/20 09/15/20 10:04 05:21 WBC RBC Hgb Hct MCHC RDW Lymph % (Auto) Lymph # (Auto) Seg Neutrophils % Seg Neutrophils # PT INR D-Dimer POC ABG pCO2 POC ABG pO2 ABG Sodium ABG Chloride ABG Glucose Sodium 135 L Potassium Chloride 97.5 L BUN Creatinine 0.6 L Glucose 213 H 149 H Calcium 8.2 L 8.0 L Magnesium Lactate Dehydrogenase C-Reactive Protein NT-Pro-B Natriuret Pep Albumin Arterial Blood Glucose Arterial Blood Ionized Calcium
--- NOTE | 2020-09-15 10:47 | Progress Note ---
Assessment and Plan Hx of Paroxysmal Atrial fibrillation/flutter on Eliquis as an outpatient normal LVEF by echo this presentation Hx of CAD COPD exacerbation Possible pneumonia Hx of PAD - on plavix Recommendations: Continue amiodarone and oral anticoagulation for management of atrial flutter. Otherwise, conservative cardiac management. Subjective Date of service: 09/15/20 Interval history: No acute events Objective Vital Signs Temp Pulse Pulse Pulse Resp Resp BP 09/15/20 08:31 09/15/20 05:32 97.9 F 74 20 142/68 09/15/20 02:00 09/14/20 22:35 97.9 F 76 20 160/66 09/14/20 22:00 76 78 09/14/20 16:24 98.5 F 75 24 148/71 09/14/20 13:54 78 20 09/14/20 13:52 09/14/20 11:56 75 09/14/20 11:30 97.8 F 76 32 H 139/65 Pulse Ox 09/15/20 08:31 95 09/15/20 05:32 96 09/15/20 02:00 93 09/14/20 22:35 94 09/14/20 22:00 09/14/20 16:24 97 09/14/20 13:54 09/14/20 13:52 94 09/14/20 11:56 09/14/20 11:30 94 - Physical Examination General: No Apparent Distress HEENT: Positive: PERRL Neck: Positive: trachea midline Cardiac: Positive: irregularly irregular Lungs: Positive: Rhonchi Abdomen: Positive: Soft, Active Bowel Sounds - Labs and Meds Comprehensive Metabolic Panel 09/15/20 Range/Units 05:21 Sodium 137 (137-145) mmol/L Potassium 3.8 (3.6-5.0) mmol/L Chloride 99.2 (98-107) mmol/L Carbon Dioxide 28 (22-30) mmol/L BUN 20 (9-20) mg/dL Creatinine 0.6 L (0.8-1.3) mg/dL Glucose 149 H (75-100) mg/dL Calcium 8.0 L (8.4-10.2) mg/dL
[2020-09-15] MEDS: CETIRIZINE 10 MG TAB PO SCH (13:40)
[2020-09-15] MEDS: APIXABAN 2.5 MG TAB PO SCH ×2 (13:40→21:53)
[2020-09-15] MEDS: carvediloL 3.125 MG TAB PO SCH ×2 (13:40→21:53)
[2020-09-15] MEDS: AMIODARONE 200 MG TAB PO SCH ×2 (13:40→21:53)
[2020-09-15] MEDS: LIDOCAINE 5% 1 EACH PATCH TD SCH (13:40)
[2020-09-15] MEDS: LOSARTAN 50 MG TAB PO SCH (13:40)
[2020-09-15] MEDS: CEFEPIME/NS 2 GM/100 ML 2 GM/100 ML BAG IV SCH ×2 (13:40→21:52)
[2020-09-15] MEDS: ZINC SULFATE 220 MG CAP PO SCH ×2 (13:41→21:53)
[2020-09-15] MEDS: EZETIMIBE 10 MG TAB PO SCH (13:41)
[2020-09-15] MEDS: CLOPIDOGREL 75 MG TAB PO SCH (13:41)
[2020-09-15] MEDS: CHOLECALCIFEROL (VIT D3) 1000 UNIT (25 mcg) TAB PO SCH (13:41)
[2020-09-15] MEDS: ASCORBIC ACID 500 MG TAB PO SCH ×2 (13:41→21:53)
[2020-09-15] MEDS: IPRATROPIUM/ALBUTEROL SULFATE 3 ML AMPUL.NEB IH SCH ×4 (15:19→20:42)
--- NOTE | 2020-09-15 15:27 | Progress Note ---
Assessment and Plan Patient is an 85-year old M with chronic respiratory failure, severe COPD on home oxygen, atrial fibrillation on Eliquis Who presents with worsening shortness of breath, cough, and wheezing. Chest x- ray reports findings of bilateral pulmonary opacities. A/P -- Acute on chronic respiratory failure with hypoxemia Patient on 4 to 5 L oxygen at home Likely due to COPD exacerbation with underlying pneumonia Continue supplemental oxygen, noninvasive positive pressure ventilation as needed, nebulizer breathing treatment, empiric steroid, IV antibiotics pulmonary team consulted, continue medical management. --Bilateral pneumonia , likely community-acquired Pneumonia protocol: IV antibiotic therapy, blood culture, supplemental oxygen, pulse oximetry. Nebulizer therapy. -- Suspected 2019 novel coronavirus infection, ruled out with a negative test --Acute on chronic diastolic CHF cardiology team consulted, echocardiogram, BNP, thyroid panel, magnesium level, afterload reduction, Continue Lasix IV, -- Atrial fibrillation/flutter Rate control, continue therapeutic anticoagulation, cardiology team consulted. --Hemoptysis, will monitor H&H, will repeat chest x-ray and sputum culture If continues to have hemoptysis may have to hold anticoagulation --Hyperkalemia, follow BMP Kayexalate as needed --Peripheral arterial disease, patient on aspirin Plavix and statin -- DVT prophylaxis SCD to bilateral lower extremities while in bed, continue therapeutic anticoagulation Daily clinical course: 09/13/20: Pending COVID-19 test, 2D echo showed EF 50 to 55%. Amiodarone has been started for his atrial flutter. Continue current care, follow clinically. Patient on 8 L nasal cannula, wean off as tolerated 09/14/20: Patient placed on high flow O2 today, Covid test is negative. Continue to treat for community-acquired pneumonia. Continue empiric steroid, IV antibiotics and nebulizer breathing treatment along with IV diuresis. Monitor ins and O's. Repeat chest x-ray tomorrow morning. 09/15/20: Patient complains of blood with cough. will monitor H&H, will repeat chest x-ray and sputum culture. If continues to have hemoptysis may have to hold anticoagulation. Patient remains on high flow O2, continue to follow clinically and wean off as tolerated. Subjective Date of service: 09/15/20 Interval history: Patient seen and examined. Medical records and medication list reviewed. No acute event overnight noted by the RN. Patient denies any chest pain but complains of difficulty breathing. Patient is tolerating diet. He remains on high flow oxygen Discussed plan of care at bedside with patient. Objective - Exam Narrative Exam: GENERAL: well-developed elderly white male lying on bed appeared to be in mild discomfort. HEENT: Normocephalic. Atraumatic. No conjunctival congestion or icterus. Patient has moist mucous membranes. NECK: Supple. Trachea midline. CHEST/LUNGS: Diminished breath sound with rhonchi auscultated bilaterally, breathing slightly labored. HEART/CARDIOVASCULAR: Regular in rate and rhythm. S1 and S2 positive. ABDOMEN: Abdomen is soft, nontender. Patient has normal bowel sounds. SKIN: There is no rash. Warm and dry. NEURO: No focal motor deficit. Follows command. MUSCULOSKELETAL: No joint effusion or tenderness. EXTRIMITY: No edema, no cyanosis or clubbing. PSYCH: Cooperative but anxious. - Constitutional Vitals: Vital Signs - 12hr 09/15/20 09/15/20 09/15/20 05:32 08:31 12:11 Temperature 97.9 F 98.3 F Pulse Rate 74 75 Respiratory 20 24 Rate Blood Pressure 142/68 143/69 O2 Sat by Pulse 96 95 96 Oximetry 09/15/20 14:13 Temperature Pulse Rate Respiratory Rate Blood Pressure O2 Sat by Pulse 97 Oximetry - Labs CBC & Chem 7: 09/16/20 05:24 09/15/20 05:21 Labs: Abnormal lab results 09/15/20 Range/Units 05:21 Creatinine 0.6 L (0.8-1.3) mg/dL Glucose 149 H (75-100) mg/dL Calcium 8.0 L (8.4-10.2) mg/dL HEART Score - HEART Score Troponin: Troponin T < 0.010 ng/mL (0.00-0.029) 09/12/20 16:46
[2020-09-15] MEDS: VANCOMYCIN 1,250 MG in SODIUM CHLORIDE 0.9% 250ML 250 ML IV SCH (15:30)
[2020-09-15] MEDS: BUDESONIDE 0.5 MG/2 ML NEBU IH SCH ×3 (15:35→20:42)
--- NOTE | 2020-09-15 16:05 | XRay Report ---
CHEST 1 VIEW 09/15/2020 2:57 PM INDICATION / CLINICAL INFORMATION: Hemoptysis. COMPARISON: 09/12/2020 FINDINGS: SUPPORT DEVICES: None. HEART / MEDIASTINUM: Unchanged LUNGS / PLEURA: Diffuse bilateral pulmonary opacities appear unchanged. No pneumothorax. ADDITIONAL FINDINGS: No significant additional findings. IMPRESSION: 1. No significant change. Signer Name: Smooth Sargent MD Signed: 09/15/2020 4:01 PM Workstation Name: [id number]
[2020-09-15] MEDS: PRAVASTATIN 40 MG TAB PO SCH (21:52)
[2020-09-16] MEDS: FUROSEMIDE 20 MG/2 ML INJ IV SCH ×2 (05:37→18:21)
[2020-09-16] MEDS: methylPREDNISolone Sod Succinate 40 MG/1 ML INJ IV SCH ×3 (05:37→22:16)
[2020-09-16 06:35] LABS: Basophils % (Auto) 0.1 % (0.0-1.8); Hemoglobin 11.3 gm/dl (11.8-15.2); Lymphocytes # (Auto) 0.7 K/mm3 (1.2-5.4); Lymphocytes % (Auto) 9.2 % (13.4-35.0); Mean Corpuscular HGB Conc 34 % (32-34); Mean Corpuscular Volume 89 fl (84-94); Monocytes # (Auto) 0.4 K/mm3 (0.0-0.8); Monocytes % (Auto) 5.3 % (0.0-7.3); Platelet Count 271 K/mm3 (140-440); Red Blood Count 3.71 M/mm3 (3.65-5.03); Red Cell Distribution Width 16.1 % (13.2-15.2)
[2020-09-16] MEDS: BUDESONIDE 0.5 MG/2 ML NEBU IH SCH ×2 (08:36→21:54)
[2020-09-16] MEDS: IPRATROPIUM/ALBUTEROL SULFATE 3 ML AMPUL.NEB IH SCH ×3 (08:36→21:54)
--- NOTE | 2020-09-16 08:50 | Progress Note ---
Assessment and Plan - Patient Problems (1) Obesity Current Visit: Yes Status: Acute (2) Physical deconditioning Current Visit: Yes Status: Acute (3) Acute on chronic respiratory failure with hypoxemia Current Visit: Yes Status: Acute (4) Atrial fibrillation Current Visit: Yes Status: Acute Qualifiers: Atrial fibrillation type: longstanding persistent Qualified Code(s): I48.11 - Longstanding persistent atrial fibrillation (5) Bilateral pneumonia Current Visit: Yes Status: Acute Qualifiers: Pneumonia type: due to unspecified organism Lung location: unspecified part of lung Qualified Code(s): J18.9 - Pneumonia, unspecified organism (6) COPD exacerbation Current Visit: Yes Status: Acute (7) Diastolic CHF Current Visit: Yes Status: Acute Qualifiers: Heart failure chronicity: acute on chronic Qualified Code(s): I50.33 - Acute on chronic diastolic (congestive) heart failure Subjective Interval history: feels better on 70%HF Objective Vital Signs - 12hr 09/15/20 09/15/20 09/15/20 21:49 21:50 22:00 Temperature 98.5 F Pulse Rate 72 75 75 Pulse Rate [ Anterior Bilateral Throughout] Respiratory 26 H 26 H Rate Respiratory Rate [Anterior Bilateral Throughout] Blood Pressure 133/68 O2 Sat by Pulse 91 93 93 Oximetry 09/16/20 09/16/20 09/16/20 01:54 04:38 08:00 Temperature 98.5 F Pulse Rate 74 Pulse Rate [ 75 Anterior Bilateral Throughout] Respiratory 20 Rate Respiratory 19 Rate [Anterior Bilateral Throughout] Blood Pressure 162/77 O2 Sat by Pulse 92 94 96 Oximetry 09/16/20 08:25 Temperature Pulse Rate Pulse Rate [ Anterior Bilateral Throughout] Respiratory Rate Respiratory Rate [Anterior Bilateral Throughout] Blood Pressure O2 Sat by Pulse 93 Oximetry Constitutional: no acute distress Eyes: non-icteric ENT: oropharynx moist Neck: supple Effort: normal Ascultation: Bilateral: diminished breath sounds Cardiovascular: regular rate and rhythm Gastrointestinal: normoactive bowel sounds, non-tender, other (obese) Neurologic: non-focal exam Psychiatric: mood appropriate CBC and BMP: 09/16/20 05:24 09/15/20 05:21 ABG, PT/INR, D-dimer: ABG ABG pH 7.448 (7.320-7.450) 09/12/20 12:15 POC ABG pCO2 27.3 mmHg (32.0-48.0) L 09/12/20 12:15 POC ABG pO2 79.9 mmHg (83-108) L 09/12/20 12:15 POC ABG HCO3 18.5 09/12/20 12:15 ABG O2 Saturation 96.3 (0-100) 09/12/20 12:15 PT/INR, D-dimer PT 16.2 Sec. (12.2-14.9) H 09/12/20 12:47 INR 1.25 (0.87-1.13) H 09/12/20 12:47 D-Dimer 403.72 ng/mlDDU (0-234) H 09/12/20 12:47 Abnormal lab findings: Abnormal Labs 09/12/20 09/12/20 09/12/20 11:20 11:20 11:20 WBC RBC Hgb Hct 35.4 L MCHC RDW 15.9 H Lymph % (Auto) 7.9 L Lymph # (Auto) 0.8 L Seg Neutrophils % 88.4 H Seg Neutrophils # 8.6 H PT 15.4 H INR 1.17 H D-Dimer POC ABG pCO2 POC ABG pO2 ABG Sodium ABG Chloride ABG Glucose Sodium 130 L Potassium Chloride 93.5 L BUN 5 L Creatinine 0.6 L Glucose 118 H Calcium Magnesium Lactate Dehydrogenase C-Reactive Protein NT-Pro-B Natriuret Pep 2014 H Albumin 3.6 L Arterial Blood Glucose Arterial Blood Ionized Calcium 09/12/20 09/12/20 09/12/20 12:15 12:42 12:42 WBC RBC Hgb Hct 35.4 L MCHC RDW 15.7 H Lymph % (Auto) Lymph # (Auto) Seg Neutrophils % Seg Neutrophils # PT INR D-Dimer POC ABG pCO2 27.3 L POC ABG pO2 79.9 L ABG Sodium 129.0 L ABG Chloride 97.0 L ABG Glucose 153 H Sodium Potassium Chloride BUN Creatinine 0.6 L Glucose Calcium Magnesium Lactate Dehydrogenase C-Reactive Protein NT-Pro-B Natriuret Pep Albumin Arterial Blood Glucose 153 H Arterial Blood Ionized Calcium 4.5 L 09/12/20 09/12/20 09/12/20 12:47 13:40 13:40 WBC RBC Hgb Hct MCHC RDW Lymph % (Auto) Lymph # (Auto) Seg Neutrophils % Seg Neutrophils # PT 16.2 H INR 1.25 H D-Dimer 403.72 H POC ABG pCO2 POC ABG pO2 ABG Sodium ABG Chloride ABG Glucose Sodium Potassium Chloride BUN Creatinine Glucose 103 H Calcium Magnesium 2.50 H Lactate Dehydrogenase 273 H C-Reactive Protein 5.40 H NT-Pro-B Natriuret Pep Albumin Arterial Blood Glucose Arterial Blood Ionized Calcium 09/13/20 09/13/20 09/14/20 07:43 07:43 05:33 WBC 11.5 H RBC 3.59 L Hgb 11.2 L Hct 31.4 L MCHC 36 H RDW 16.0 H 16.2 H Lymph % (Auto) 12.4 L Lymph # (Auto) 0.8 L Seg Neutrophils % 85.6 H Seg Neutrophils # PT INR D-Dimer POC ABG pCO2 POC ABG pO2 ABG Sodium ABG Chloride ABG Glucose Sodium 135 L Potassium 5.1 H D Chloride BUN Creatinine 0.6 L Glucose 144 H Calcium Magnesium Lactate Dehydrogenase C-Reactive Protein NT-Pro-B Natriuret Pep Albumin 3.4 L Arterial Blood Glucose Arterial Blood Ionized Calcium 09/14/20 09/15/20 09/16/20 10:04 05:21 05:24 WBC RBC Hgb 11.3 L Hct 33.0 L MCHC RDW 16.1 H Lymph % (Auto) 9.2 L Lymph # (Auto) 0.7 L Seg Neutrophils % 85.4 H Seg Neutrophils # PT INR D-Dimer POC ABG pCO2 POC ABG pO2 ABG Sodium ABG Chloride ABG Glucose Sodium 135 L Potassium Chloride 97.5 L BUN Creatinine 0.6 L Glucose 213 H 149 H Calcium 8.2 L 8.0 L Magnesium Lactate Dehydrogenase C-Reactive Protein NT-Pro-B Natriuret Pep Albumin Arterial Blood Glucose Arterial Blood Ionized Calcium
[2020-09-16] MEDS: EZETIMIBE 10 MG TAB PO SCH (11:02)
[2020-09-16] MEDS: CHOLECALCIFEROL (VIT D3) 1000 UNIT (25 mcg) TAB PO SCH (11:03)
[2020-09-16] MEDS: LOSARTAN 50 MG TAB PO SCH (11:03)
[2020-09-16] MEDS: carvediloL 3.125 MG TAB PO SCH ×2 (11:03→22:16)
[2020-09-16] MEDS: APIXABAN 2.5 MG TAB PO SCH ×2 (11:04→22:17)
[2020-09-16] MEDS: ZINC SULFATE 220 MG CAP PO SCH ×2 (11:04→22:16)
[2020-09-16] MEDS: CETIRIZINE 10 MG TAB PO SCH (11:04)
[2020-09-16] MEDS: AMIODARONE 200 MG TAB PO SCH ×2 (11:04→22:16)
[2020-09-16] MEDS: CLOPIDOGREL 75 MG TAB PO SCH (11:04)
[2020-09-16] MEDS: LIDOCAINE 5% 1 EACH PATCH TD SCH (11:05)
[2020-09-16] MEDS: CEFEPIME/NS 2 GM/100 ML 2 GM/100 ML BAG IV SCH ×2 (11:05→22:15)
[2020-09-16] MEDS: ASCORBIC ACID 500 MG TAB PO SCH ×2 (11:06→22:16)
--- NOTE | 2020-09-16 12:23 | Progress Note ---
Assessment and Plan Hx of Paroxysmal Atrial fibrillation/flutter on Eliquis as an outpatient normal LVEF by echo this presentation Hx of CAD COPD exacerbation Possible pneumonia Hx of PAD - on plavix Recommendations: Continue amiodarone and oral anticoagulation for management of atrial flutter. Otherwise, conservative cardiac management. Subjective Date of service: 09/16/20 Interval history: No acute events Objective Vital Signs Temp Pulse Pulse Resp Resp BP Pulse Ox 09/16/20 08:25 93 09/16/20 08:00 75 19 96 09/16/20 04:38 98.5 F 74 20 162/77 94 09/16/20 01:54 92 09/15/20 22:00 75 26 H 93 09/15/20 21:50 75 93 09/15/20 21:49 98.5 F 72 26 H 133/68 91 09/15/20 20:48 95 09/15/20 20:45 80 22 09/15/20 17:10 97.7 F 75 24 151/76 94 09/15/20 15:24 74 19 09/15/20 14:13 97 - Physical Examination General: No Apparent Distress HEENT: Positive: PERRL Neck: Positive: trachea midline Cardiac: Positive: Irregularly Regular Lungs: Positive: clear to auscultation Abdomen: Positive: Soft, Active Bowel Sounds - Labs and Meds CBC 09/16/20 Range/Units 05:24 WBC 8.0 (4.5-11.0) K/mm3 RBC 3.71 (3.65-5.03) M/mm3 Hgb 11.3 L (11.8-15.2) gm/dl Hct 33.0 L (35.5-45.6) % Plt Count 271 (140-440) K/mm3 Lymph # (Auto) 0.7 L (1.2-5.4) K/mm3 Pope # (Auto) 0.4 (0.0-0.8) K/mm3 Eos # (Auto) 0.0 (0.0-0.4) K/mm3 Baso # (Auto) 0.0 (0.0-0.1) K/mm3
--- NOTE | 2020-09-16 15:12 | Progress Note ---
Assessment and Plan Patient is an 85-year old M with chronic respiratory failure, severe COPD on home oxygen, atrial fibrillation on Eliquis who presents with worsening shortness of breath, cough, and wheezing. Chest x- ray reports findings of bilateral pulmonary opacities. A/P -- Acute on chronic respiratory failure with hypoxemia Patient on 4 to 5 L oxygen at home Likely due to COPD exacerbation with underlying pneumonia Continue supplemental oxygen, noninvasive positive pressure ventilation as needed, nebulizer breathing treatment, empiric steroid, IV antibiotics pulmonary team consulted, continue medical management. --Bilateral pneumonia , likely community-acquired Pneumonia protocol: IV antibiotic therapy, blood culture, supplemental oxygen, pulse oximetry. Nebulizer therapy. -- Suspected 2019 novel coronavirus infection, ruled out with a negative test --Acute on chronic diastolic CHF cardiology team consulted, echocardiogram, BNP, thyroid panel, magnesium level, afterload reduction, Continue Lasix IV, -- Atrial fibrillation/flutter Rate control, continue therapeutic anticoagulation, cardiology team consulted. --Hemoptysis, will monitor H&H, will repeat chest x-ray and sputum culture If continues to have hemoptysis may have to hold anticoagulation --Hyperkalemia, follow BMP Kayexalate as needed --Peripheral arterial disease, patient on aspirin Plavix and statin -- DVT prophylaxis SCD to bilateral lower extremities while in bed, continue therapeutic anticoagulation Daily clinical course: 09/13/20: Pending COVID-19 test, 2D echo showed EF 55 to 60%. Amiodarone has been started for his atrial flutter. Continue current care, follow clinically. Patient on 8 L nasal cannula, wean off as tolerated 09/14/20: Patient placed on high flow O2 today, Covid test is negative. Continue to treat for community-acquired pneumonia. Continue empiric steroid, IV antibiotics and nebulizer breathing treatment along with IV diuresis. Monitor ins and O's. Repeat chest x-ray tomorrow morning. 09/15/20: Patient complains of blood with cough. will monitor H&H, will repeat chest x-ray and sputum culture. If continues to have hemoptysis may have to hold anticoagulation. Patient remains on high flow O2, continue to follow clinically and wean off as tolerated 09/16/20: Denies any hemoptysis. Patient remains on 25 L 75% FiO2. Continue to wean off as tolerated. Pulmonary following. Continue empiric antibiotics, IV steroid and gentle diuresis. Subjective Date of service: 09/16/20 Interval history: Patient seen and examined. Medical records and medication list reviewed. No acute event overnight noted by the RN. Patient denies any chest pain but complains of difficulty breathing. Patient is tolerating diet. He remains on high flow oxygen Discussed plan of care at bedside with patient. Objective - Exam Narrative Exam: GENERAL: well-developed elderly white male lying on bed appeared to be in mild discomfort. HEENT: Normocephalic. Atraumatic. No conjunctival congestion or icterus. Patient has moist mucous membranes. NECK: Supple. Trachea midline. CHEST/LUNGS: Diminished breath sound with rhonchi auscultated bilaterally, breathing slightly labored. HEART/CARDIOVASCULAR: Regular in rate and rhythm. S1 and S2 positive. ABDOMEN: Abdomen is soft, nontender. Patient has normal bowel sounds. SKIN: There is no rash. Warm and dry. NEURO: No focal motor deficit. Follows command. MUSCULOSKELETAL: No joint effusion or tenderness. EXTRIMITY: No edema, no cyanosis or clubbing. PSYCH: Cooperative but anxious. - Constitutional Vitals: Vital Signs - 12hr 09/16/20 09/16/20 09/16/20 04:38 08:00 08:25 Temperature 98.5 F Pulse Rate 74 Pulse Rate [ 75 Anterior Bilateral Throughout] Respiratory 20 Rate Respiratory 19 Rate [Anterior Bilateral Throughout] Blood Pressure 162/77 O2 Sat by Pulse 94 96 93 Oximetry 09/16/20 09/16/20 13:20 13:31 Temperature Pulse Rate Pulse Rate [ 80 Anterior Bilateral Throughout] Respiratory Rate Respiratory 19 Rate [Anterior Bilateral Throughout] Blood Pressure O2 Sat by Pulse 98 Oximetry - Labs CBC & Chem 7: 09/16/20 05:24 09/15/20 05:21 Labs: Abnormal lab results 09/16/20 Range/Units 05:24 Hgb 11.3 L (11.8-15.2) gm/dl Hct 33.0 L (35.5-45.6) % RDW 16.1 H (13.2-15.2) % Lymph % (Auto) 9.2 L (13.4-35.0) % Lymph # (Auto) 0.7 L (1.2-5.4) K/mm3 Seg Neutrophils % 85.4 H (40.0-70.0) % HEART Score - HEART Score Troponin: Troponin T < 0.010 ng/mL (0.00-0.029) 09/12/20 16:46
[2020-09-16] MEDS: VANCOMYCIN 1,250 MG in SODIUM CHLORIDE 0.9% 250ML 250 ML IV SCH (18:22)
[2020-09-16] MEDS: PRAVASTATIN 40 MG TAB PO SCH (22:16)
[2020-09-17] MEDS: methylPREDNISolone Sod Succinate 40 MG/1 ML INJ IV SCH (05:18)
[2020-09-17] MEDS: FUROSEMIDE 20 MG/2 ML INJ IV SCH ×2 (05:18→17:50)
[2020-09-17] MEDS: BUDESONIDE 0.5 MG/2 ML NEBU IH SCH ×2 (09:10→20:43)
[2020-09-17] MEDS: IPRATROPIUM/ALBUTEROL SULFATE 3 ML AMPUL.NEB IH SCH ×3 (09:10→20:42)
--- NOTE | 2020-09-17 09:44 | Progress Note ---
Assessment and Plan - Patient Problems (1) COPD exacerbation Current Visit: Yes Status: Acute Plan to address problem: Patient admitted with shortness of breath due to COPD exacerbation. Continue management of his COPD as directed by pulmonary and internal medicine. (2) Atrial fibrillation Current Visit: Yes Status: Acute Qualifiers: Atrial fibrillation type: longstanding persistent Qualified Code(s): I48.11 - Longstanding persistent atrial fibrillation Plan to address problem: Chronic atrial fibrillation and flutter is managed with a rate control strategy and chronic oral anticoagulation with Eliquis. (3) CAD (coronary artery disease) Current Visit: Yes Status: Acute Plan to address problem: Patient has history of coronary artery disease status post remote coronary stenting of the mid right coronary artery, no active cardiac complaints at the current time, will continue guideline directed medical therapy and risk factor modification. Subjective Date of service: 09/17/20 Interval history: Patient has a mild dyspnea, but no acute cardiac complaints. He is undergoing intensive pulmonary management of his COPD exacerbation. Objective Vital Signs Temp Pulse Pulse Resp Resp BP BP 09/17/20 09:10 74 20 09/17/20 09:09 09/17/20 04:52 98.5 F 73 24 141/66 09/17/20 02:00 09/16/20 22:16 73 152/72 09/16/20 22:14 74 09/16/20 22:13 74 09/16/20 22:00 98.1 F 73 20 152/72 09/16/20 21:56 78 19 09/16/20 20:24 09/16/20 20:00 09/16/20 18:59 97.8 F 73 22 144/68 09/16/20 13:31 09/16/20 13:20 80 19 Pulse Ox 09/17/20 09:10 09/17/20 09:09 95 09/17/20 04:52 96 09/17/20 02:00 98 09/16/20 22:16 09/16/20 22:14 97 09/16/20 22:13 97 09/16/20 22:00 96 09/16/20 21:56 09/16/20 20:24 94 09/16/20 20:00 98 09/16/20 18:59 95 09/16/20 13:31 98 09/16/20 13:20 - Physical Examination General: No Apparent Distress HEENT: Positive: PERRL Neck: Positive: trachea midline Cardiac: Positive: irregularly irregular Lungs: Positive: Decreased Breath Sounds Neuro: Positive: Grossly Intact Abdomen: Positive: Soft, Active Bowel Sounds Skin: Positive: Clear Extremities: Absent: edema
--- NOTE | 2020-09-17 09:56 | Progress Note ---
Assessment and Plan 85 y/o male with exacerbation of his ILD, most likely secondary to volume overload and COPD exacerbation. 09/17/20: Increase steroids to 60q6 starting today. Strict I/O with goal of daily net negative state to keep the lungs as dry as possible. 09/14/20: Agree with BID dosing of lasix but I gave an additional 20 today on top of the 20 BID ordered by IMS. Please order strict i/o. If no improvement with increased diuretic therapy, tomorrow would increase steroids to 60q6. Guarded prognosis. need to discuss code status with patient. Will attempt to do later today. 1. WIll give a one time dose of IV lasix now and patient likely will need home dosing of lasix at discharge. I suspect he has pulmonary HTN from his ILD and should be kept as dry as possible or as dry as bp and renal function will allow. 2. Suggest obtaing 2 D echo to look for Pulm HTN as well as to make sure systolic function is still normal 3. VTE is on the differential for exacerbation of ILD, however don't feel CTA is needed at this time. If echo suggest rv strain could consider obtaining CTA 4. Would switch to prednisone 60 daily and taper as follows: 60 daily for 3 days, 40 daily for 3 days then 20 daily for 3 days then stop. 5. Not sure why patient has not followed up with Dr. Francis but is welcome to come back to the office post discharge 6. He will need a walk test prior to discharge to see what his new exertional oxygen requirement may be. Given age and underlying lung disease, prognosis is guarded. Subjective Date of service: 09/17/20 Interval history: Only mild improvement in oxygen requirement since Thursday. Diuresis appears to be helping some. Objective Vital Signs - 12hr 09/16/20 09/16/20 09/16/20 21:56 22:00 22:13 Temperature 98.1 F Pulse Rate 73 74 Pulse Rate [ 78 Anterior Bilateral Throughout] Respiratory 20 Rate Respiratory 19 Rate [Anterior Bilateral Throughout] Blood Pressure Blood Pressure 152/72 [Left] O2 Sat by Pulse 96 97 Oximetry 09/16/20 09/16/20 09/17/20 22:14 22:16 02:00 Temperature Pulse Rate 74 73 Pulse Rate [ Anterior Bilateral Throughout] Respiratory Rate Respiratory Rate [Anterior Bilateral Throughout] Blood Pressure 152/72 Blood Pressure [Left] O2 Sat by Pulse 97 98 Oximetry 09/17/20 09/17/20 09/17/20 04:52 09:09 09:10 Temperature 98.5 F Pulse Rate 73 Pulse Rate [ 74 Anterior Bilateral Throughout] Respiratory 24 Rate Respiratory 20 Rate [Anterior Bilateral Throughout] Blood Pressure 141/66 Blood Pressure [Left] O2 Sat by Pulse 96 95 Oximetry Constitutional: no acute distress Eyes: non-icteric ENT: oropharynx moist Neck: supple Effort: normal Ascultation: Bilateral: diminished breath sounds Cardiovascular: regular rate and rhythm Gastrointestinal: normoactive bowel sounds, non-tender, other (obese) Neurologic: non-focal exam Psychiatric: mood appropriate CBC and BMP: 09/16/20 05:24 09/15/20 05:21 ABG, PT/INR, D-dimer: ABG ABG pH 7.448 (7.320-7.450) 09/12/20 12:15 POC ABG pCO2 27.3 mmHg (32.0-48.0) L 09/12/20 12:15 POC ABG pO2 79.9 mmHg (83-108) L 09/12/20 12:15 POC ABG HCO3 18.5 09/12/20 12:15 ABG O2 Saturation 96.3 (0-100) 09/12/20 12:15 PT/INR, D-dimer PT 16.2 Sec. (12.2-14.9) H 09/12/20 12:47 INR 1.25 (0.87-1.13) H 09/12/20 12:47 D-Dimer 403.72 ng/mlDDU (0-234) H 09/12/20 12:47 Abnormal lab findings: Abnormal Labs 09/12/20 09/12/20 09/12/20 11:20 11:20 11:20 WBC RBC Hgb Hct 35.4 L MCHC RDW 15.9 H Lymph % (Auto) 7.9 L Lymph # (Auto) 0.8 L Seg Neutrophils % 88.4 H Seg Neutrophils # 8.6 H PT 15.4 H INR 1.17 H D-Dimer POC ABG pCO2 POC ABG pO2 ABG Sodium ABG Chloride ABG Glucose Sodium 130 L Potassium Chloride 93.5 L BUN 5 L Creatinine 0.6 L Glucose 118 H Calcium Magnesium Lactate Dehydrogenase C-Reactive Protein NT-Pro-B Natriuret Pep 2014 H Albumin 3.6 L Arterial Blood Glucose Arterial Blood Ionized Calcium 09/12/20 09/12/20 09/12/20 12:15 12:42 12:42 WBC RBC Hgb Hct 35.4 L MCHC RDW 15.7 H Lymph % (Auto) Lymph # (Auto) Seg Neutrophils % Seg Neutrophils # PT INR D-Dimer POC ABG pCO2 27.3 L POC ABG pO2 79.9 L ABG Sodium 129.0 L ABG Chloride 97.0 L ABG Glucose 153 H Sodium Potassium Chloride BUN Creatinine 0.6 L Glucose Calcium Magnesium Lactate Dehydrogenase C-Reactive Protein NT-Pro-B Natriuret Pep Albumin Arterial Blood Glucose 153 H Arterial Blood Ionized Calcium 4.5 L 09/12/20 09/12/20 09/12/20 12:47 13:40 13:40 WBC RBC Hgb Hct MCHC RDW Lymph % (Auto) Lymph # (Auto) Seg Neutrophils % Seg Neutrophils # PT 16.2 H INR 1.25 H D-Dimer 403.72 H POC ABG pCO2 POC ABG pO2 ABG Sodium ABG Chloride ABG Glucose Sodium Potassium Chloride BUN Creatinine Glucose 103 H Calcium Magnesium 2.50 H Lactate Dehydrogenase 273 H C-Reactive Protein 5.40 H NT-Pro-B Natriuret Pep Albumin Arterial Blood Glucose Arterial Blood Ionized Calcium 09/13/20 09/13/20 09/14/20 07:43 07:43 05:33 WBC 11.5 H RBC 3.59 L Hgb 11.2 L Hct 31.4 L MCHC 36 H RDW 16.0 H 16.2 H Lymph % (Auto) 12.4 L Lymph # (Auto) 0.8 L Seg Neutrophils % 85.6 H Seg Neutrophils # PT INR D-Dimer POC ABG pCO2 POC ABG pO2 ABG Sodium ABG Chloride ABG Glucose Sodium 135 L Potassium 5.1 H D Chloride BUN Creatinine 0.6 L Glucose 144 H Calcium Magnesium Lactate Dehydrogenase C-Reactive Protein NT-Pro-B Natriuret Pep Albumin 3.4 L Arterial Blood Glucose Arterial Blood Ionized Calcium 09/14/20 09/15/20 09/16/20 10:04 05:21 05:24 WBC RBC Hgb 11.3 L Hct 33.0 L MCHC RDW 16.1 H Lymph % (Auto) 9.2 L Lymph # (Auto) 0.7 L Seg Neutrophils % 85.4 H Seg Neutrophils # PT INR D-Dimer POC ABG pCO2 POC ABG pO2 ABG Sodium ABG Chloride ABG Glucose Sodium 135 L Potassium Chloride 97.5 L BUN Creatinine 0.6 L Glucose 213 H 149 H Calcium 8.2 L 8.0 L Magnesium Lactate Dehydrogenase C-Reactive Protein NT-Pro-B Natriuret Pep Albumin Arterial Blood Glucose Arterial Blood Ionized Calcium
[2020-09-17] MEDS: EZETIMIBE 10 MG TAB PO SCH (11:51)
[2020-09-17] MEDS: AMIODARONE 200 MG TAB PO SCH ×2 (11:51→21:43)
[2020-09-17] MEDS: LOSARTAN 50 MG TAB PO SCH (11:51)
[2020-09-17] MEDS: ASPIRIN 81 MG TAB CHEW PO SCH (11:51)
[2020-09-17] MEDS: CETIRIZINE 10 MG TAB PO SCH (11:51)
[2020-09-17] MEDS: LIDOCAINE 5% 1 EACH PATCH TD SCH (11:52)
[2020-09-17] MEDS: APIXABAN 2.5 MG TAB PO SCH ×2 (11:52→21:43)
[2020-09-17] MEDS: CLOPIDOGREL 75 MG TAB PO SCH (11:52)
[2020-09-17] MEDS: ZINC SULFATE 220 MG CAP PO SCH ×2 (11:52→21:42)
[2020-09-17] MEDS: carvediloL 3.125 MG TAB PO SCH ×2 (11:52→21:42)
[2020-09-17] MEDS: ASCORBIC ACID 500 MG TAB PO SCH ×2 (11:52→21:43)
[2020-09-17] MEDS: CHOLECALCIFEROL (VIT D3) 1000 UNIT (25 mcg) TAB PO SCH (11:52)
[2020-09-17] MEDS: CEFEPIME/NS 2 GM/100 ML 2 GM/100 ML BAG IV SCH ×2 (11:53→21:41)
[2020-09-17] MEDS: VANCOMYCIN/NS 1 GM/250 ML 1 GM/250 ML BAG IV SCH ×2 (11:53→21:41)
[2020-09-17] MEDS: methylPREDNISolone Sod Succinate 125 MG/2 ML INJ IV SCH ×3 (11:57→23:01)
[2020-09-17] MEDS ORDERED: methylPREDNISolone Sod Succinate 40 MG/1 ML INJ IV SCH (12:00)
[2020-09-17] MEDS: guaiFENesin DM 200/20 MG ORAL LIQD 10 ML PO PRN (21:42)
[2020-09-17] MEDS: PRAVASTATIN 40 MG TAB PO SCH (21:43)
[2020-09-18] MEDS: FUROSEMIDE 20 MG/2 ML INJ IV SCH ×2 (05:08→17:12)
[2020-09-18] MEDS: methylPREDNISolone Sod Succinate 125 MG/2 ML INJ IV SCH ×4 (05:08→23:54)
[2020-09-18 06:47] LABS: Hematocrit 34.7 % (35.5-45.6); Mean Corpuscular HGB Conc 35 % (32-34); Mean Corpuscular Volume 88 fl (84-94); Platelet Count 317 K/mm3 (140-440); Red Blood Count 3.93 M/mm3 (3.65-5.03); Red Cell Distribution Width 16.1 % (13.2-15.2)
--- NOTE | 2020-09-18 09:02 | Progress Note ---
Assessment and Plan Hx of Paroxysmal Atrial fibrillation/flutter on Eliquis as an outpatient normal LVEF by echo this presentation On his last office visit less than 2 months ago, his EKG was a sinus rhythm. Hx of CAD COPD exacerbation Possible pneumonia Hx of PAD - on plavix Recommendations: Continue current medical management of atrial flutter that persists. Otherwise, conservative cardiac management. Subjective Date of service: 09/18/20 Interval history: Remains on high flow oxygen. No cardiac complaints. 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 Objective Vital Signs Temp Pulse Pulse Resp Resp BP BP 09/18/20 02:25 09/17/20 22:00 74 09/17/20 21:45 98.3 F 74 20 156/69 09/17/20 21:42 74 156/69 09/17/20 21:40 73 09/17/20 21:38 73 09/17/20 20:45 73 18 09/17/20 20:15 09/17/20 19:55 09/17/20 13:37 74 20 09/17/20 13:36 09/17/20 11:24 99.1 F 75 24 134/67 09/17/20 10:00 09/17/20 09:10 74 20 09/17/20 09:09 Pulse Ox 09/18/20 02:25 94 09/17/20 22:00 09/17/20 21:45 95 09/17/20 21:42 09/17/20 21:40 97 09/17/20 21:38 96 09/17/20 20:45 09/17/20 20:15 95 09/17/20 19:55 94 09/17/20 13:37 09/17/20 13:36 97 09/17/20 11:24 96 09/17/20 10:00 95 09/17/20 09:10 09/17/20 09:09 95 - Physical Examination General: No Apparent Distress HEENT: Positive: PERRL Neck: Positive: trachea midline Cardiac: Positive: irregularly irregular Lungs: Positive: Decreased Breath Sounds Neuro: Positive: Grossly Intact Extremities: Absent: edema - Labs and Meds CBC 09/18/20 Range/Units 06:07 WBC 7.2 (4.5-11.0) K/mm3 RBC 3.93 (3.65-5.03) M/mm3 Hgb 12.0 (11.8-15.2) gm/dl Hct 34.7 L (35.5-45.6) % Plt Count 317 (140-440) K/mm3 Comprehensive Metabolic Panel 09/18/20 Range/Units 06:07 Creatinine 0.6 L (0.8-1.3) mg/dL
[2020-09-18] MEDS: IPRATROPIUM/ALBUTEROL SULFATE 3 ML AMPUL.NEB IH SCH ×4 (10:07→20:48)
[2020-09-18] MEDS: BUDESONIDE 0.5 MG/2 ML NEBU IH SCH ×2 (10:07→20:48)
[2020-09-18] MEDS: EZETIMIBE 10 MG TAB PO SCH (10:36)
[2020-09-18] MEDS: LOSARTAN 50 MG TAB PO SCH (10:36)
[2020-09-18] MEDS: ASCORBIC ACID 500 MG TAB PO SCH ×2 (10:36→21:41)
[2020-09-18] MEDS: APIXABAN 2.5 MG TAB PO SCH ×2 (10:37→21:42)
[2020-09-18] MEDS: ASPIRIN 81 MG TAB CHEW PO SCH (10:37)
[2020-09-18] MEDS: ZINC SULFATE 220 MG CAP PO SCH ×2 (10:37→21:41)
[2020-09-18] MEDS: carvediloL 3.125 MG TAB PO SCH ×2 (10:38→21:41)
[2020-09-18] MEDS: CLOPIDOGREL 75 MG TAB PO SCH (10:38)
[2020-09-18] MEDS: CHOLECALCIFEROL (VIT D3) 1000 UNIT (25 mcg) TAB PO SCH (10:38)
[2020-09-18] MEDS: AMIODARONE 200 MG TAB PO SCH ×2 (10:38→21:41)
[2020-09-18] MEDS: LIDOCAINE 5% 1 EACH PATCH TD SCH (10:39)
[2020-09-18] MEDS: VANCOMYCIN/NS 1 GM/250 ML 1 GM/250 ML BAG IV SCH ×2 (10:39→21:41)
[2020-09-18] MEDS: CETIRIZINE 10 MG TAB PO SCH (10:43)
[2020-09-18] MEDS: CEFEPIME/NS 2 GM/100 ML 2 GM/100 ML BAG IV SCH ×2 (10:46→21:41)
--- NOTE | 2020-09-18 11:35 | Progress Note ---
Assessment and Plan 85 y/o male with exacerbation of his ILD, most likely secondary to volume overload and COPD exacerbation. 09/18/20: Suggest increasing lasix to 40 BID, at least for 1-2 days to achieve net negative state to see if this helps with oxygenation. If no improvement with increase in lasix, will have discussion with patient about other options (palliative care, hospice). per cards systolic function normal from 2 years ago at last office visit. 09/17/20: Increase steroids to 60q6 starting today. Strict I/O with goal of daily net negative state to keep the lungs as dry as possible. 09/14/20: Agree with BID dosing of lasix but I gave an additional 20 today on top of the 20 BID ordered by IMS. Please order strict i/o. If no improvement with increased diuretic therapy, tomorrow would increase steroids to 60q6. Guarded prognosis. need to discuss code status with patient. Will attempt to do later today. 1. WIll give a one time dose of IV lasix now and patient likely will need home dosing of lasix at discharge. I suspect he has pulmonary HTN from his ILD and should be kept as dry as possible or as dry as bp and renal function will allow. 2. Suggest obtaing 2 D echo to look for Pulm HTN as well as to make sure systol ic function is still normal 3. VTE is on the differential for exacerbation of ILD, however don't feel CTA is needed at this time. If echo suggest rv strain could consider obtaining CTA 4. Would switch to prednisone 60 daily and taper as follows: 60 daily for 3 days, 40 daily for 3 days then 20 daily for 3 days then stop. 5. Not sure why patient has not followed up with Dr. Francis but is welcome to come back to the office post discharge 6. He will need a walk test prior to discharge to see what his new exertional oxygen requirement may be. Given age and underlying lung disease, prognosis is guarded. Subjective Date of service: 09/18/20 Interval history: patient still remains positive from a fluid standpoint. Still on same HFNC settings as yesterday with good sats. Baseline home O2 requirement is 5 liters at home. Objective Vital Signs - 12hr 09/18/20 09/18/20 09/18/20 02:25 10:36 10:38 Blood Pressure 130/59 130/59 O2 Sat by Pulse 94 Oximetry Constitutional: no acute distress Eyes: non-icteric ENT: oropharynx moist Neck: supple Effort: normal Ascultation: Bilateral: diminished breath sounds Cardiovascular: regular rate and rhythm Gastrointestinal: normoactive bowel sounds, non-tender, other (obese) Neurologic: non-focal exam Psychiatric: mood appropriate CBC and BMP: 09/18/20 06:07 09/18/20 06:07 ABG, PT/INR, D-dimer: ABG ABG pH 7.448 (7.320-7.450) 09/12/20 12:15 POC ABG pCO2 27.3 mmHg (32.0-48.0) L 09/12/20 12:15 POC ABG pO2 79.9 mmHg (83-108) L 09/12/20 12:15 POC ABG HCO3 18.5 09/12/20 12:15 ABG O2 Saturation 96.3 (0-100) 09/12/20 12:15 PT/INR, D-dimer PT 16.2 Sec. (12.2-14.9) H 09/12/20 12:47 INR 1.25 (0.87-1.13) H 09/12/20 12:47 D-Dimer 403.72 ng/mlDDU (0-234) H 09/12/20 12:47 Abnormal lab findings: Abnormal Labs 09/12/20 09/12/20 09/12/20 11:20 11:20 11:20 WBC RBC Hgb Hct 35.4 L MCHC RDW 15.9 H Lymph % (Auto) 7.9 L Lymph # (Auto) 0.8 L Seg Neutrophils % 88.4 H Seg Neutrophils # 8.6 H PT 15.4 H INR 1.17 H D-Dimer POC ABG pCO2 POC ABG pO2 ABG Sodium ABG Chloride ABG Glucose Sodium 130 L Potassium Chloride 93.5 L BUN 5 L Creatinine 0.6 L Glucose 118 H Calcium Magnesium Lactate Dehydrogenase C-Reactive Protein NT-Pro-B Natriuret Pep 2014 H Albumin 3.6 L Arterial Blood Glucose Arterial Blood Ionized Calcium 09/12/20 09/12/20 09/12/20 12:15 12:42 12:42 WBC RBC Hgb Hct 35.4 L MCHC RDW 15.7 H Lymph % (Auto) Lymph # (Auto) Seg Neutrophils % Seg Neutrophils # PT INR D-Dimer POC ABG pCO2 27.3 L POC ABG pO2 79.9 L ABG Sodium 129.0 L ABG Chloride 97.0 L ABG Glucose 153 H Sodium Potassium Chloride BUN Creatinine 0.6 L Glucose Calcium Magnesium Lactate Dehydrogenase C-Reactive Protein NT-Pro-B Natriuret Pep Albumin Arterial Blood Glucose 153 H Arterial Blood Ionized Calcium 4.5 L 09/12/20 09/12/20 09/12/20 12:47 13:40 13:40 WBC RBC Hgb Hct MCHC RDW Lymph % (Auto) Lymph # (Auto) Seg Neutrophils % Seg Neutrophils # PT 16.2 H INR 1.25 H D-Dimer 403.72 H POC ABG pCO2 POC ABG pO2 ABG Sodium ABG Chloride ABG Glucose Sodium Potassium Chloride BUN Creatinine Glucose 103 H Calcium Magnesium 2.50 H Lactate Dehydrogenase 273 H C-Reactive Protein 5.40 H NT-Pro-B Natriuret Pep Albumin Arterial Blood Glucose Arterial Blood Ionized Calcium 09/13/20 09/13/20 09/14/20 07:43 07:43 05:33 WBC 11.5 H RBC 3.59 L Hgb 11.2 L Hct 31.4 L MCHC 36 H RDW 16.0 H 16.2 H Lymph % (Auto) 12.4 L Lymph # (Auto) 0.8 L Seg Neutrophils % 85.6 H Seg Neutrophils # PT INR D-Dimer POC ABG pCO2 POC ABG pO2 ABG Sodium ABG Chloride ABG Glucose Sodium 135 L Potassium 5.1 H D Chloride BUN Creatinine 0.6 L Glucose 144 H Calcium Magnesium Lactate Dehydrogenase C-Reactive Protein NT-Pro-B Natriuret Pep Albumin 3.4 L Arterial Blood Glucose Arterial Blood Ionized Calcium 09/14/20 09/15/20 09/16/20 10:04 05:21 05:24 WBC RBC Hgb 11.3 L Hct 33.0 L MCHC RDW 16.1 H Lymph % (Auto) 9.2 L Lymph # (Auto) 0.7 L Seg Neutrophils % 85.4 H Seg Neutrophils # PT INR D-Dimer POC ABG pCO2 POC ABG pO2 ABG Sodium ABG Chloride ABG Glucose Sodium 135 L Potassium Chloride 97.5 L BUN Creatinine 0.6 L Glucose 213 H 149 H Calcium 8.2 L 8.0 L Magnesium Lactate Dehydrogenase C-Reactive Protein NT-Pro-B Natriuret Pep Albumin Arterial Blood Glucose Arterial Blood Ionized Calcium 09/18/20 09/18/20 06:07 06:07 WBC RBC Hgb Hct 34.7 L MCHC 35 H RDW 16.1 H Lymph % (Auto) Lymph # (Auto) Seg Neutrophils % Seg Neutrophils # PT INR D-Dimer POC ABG pCO2 POC ABG pO2 ABG Sodium ABG Chloride ABG Glucose Sodium Potassium Chloride BUN Creatinine 0.6 L Glucose Calcium Magnesium Lactate Dehydrogenase C-Reactive Protein NT-Pro-B Natriuret Pep Albumin Arterial Blood Glucose Arterial Blood Ionized Calcium
--- NOTE | 2020-09-18 12:54 | Progress Note ---
Assessment and Plan Patient is an 85-year old M with chronic respiratory failure, severe COPD on home oxygen, atrial fibrillation on Eliquis who presents with worsening shortness of breath, cough, and wheezing. Chest x- ray reports findings of bilateral pulmonary opacities. A/P -- Acute on chronic respiratory failure with hypoxemia Patient on 4 to 5 L oxygen at home Likely due to COPD exacerbation with underlying pneumonia Continue supplemental oxygen, noninvasive positive pressure ventilation as needed, nebulizer breathing treatment, empiric steroid, IV antibiotics pulmonary team consulted, continue medical management. --Bilateral pneumonia , likely community-acquired Pneumonia protocol: IV antibiotic therapy, blood culture, supplemental oxygen, pulse oximetry. Nebulizer therapy. -- Suspected 2019 novel coronavirus infection, ruled out with a negative test --Acute on chronic diastolic CHF cardiology team consulted, echocardiogram, BNP, thyroid panel, magnesium level, afterload reduction, Continue Lasix IV, -- Atrial fibrillation/flutter Rate control, continue therapeutic anticoagulation, cardiology team consulted. --Hemoptysis, will monitor H&H, will repeat chest x-ray and sputum culture If continues to have hemoptysis may have to hold anticoagulation --Hyperkalemia, follow BMP Kayexalate as needed --Peripheral arterial disease, patient on aspirin Plavix and statin -- DVT prophylaxis SCD to bilateral lower extremities while in bed, continue therapeutic anticoagulation Daily clinical course: 09/13/20: Pending COVID-19 test, 2D echo showed EF 55 to 60%. Amiodarone has been started for his atrial flutter. Continue current care, follow clinically. Patient on 8 L nasal cannula, wean off as tolerated 09/14/20: Patient placed on high flow O2 today, Covid test is negative. Continue to treat for community-acquired pneumonia. Continue empiric steroid, IV antibiotics and nebulizer breathing treatment along with IV diuresis. Monitor ins and O's. Repeat chest x-ray tomorrow morning. 09/15/20: Patient complains of blood with cough. will monitor H&H, will repeat chest x-ray and sputum culture. If continues to have hemoptysis may have to hold anticoagulation. Patient remains on high flow O2, continue to follow clinically and wean off as tolerated 09/16/20: Denies any hemoptysis. Patient remains on 25 L 75% FiO2. Continue to wean off as tolerated. Pulmonary following. Continue nebulizer treatment, empiric antibiotics, IV steroid and gentle diuresis. 09/17/20: Patient remains on high flow O2, continue to wean off O2 as tolerated. Pulmonary following. Continue supportive care and scheduled nebulizer breathing treatment along with empiric antibiotics. 09/18/20: Patient remains on high flow O2. Patient family at bedside and I updated them in details. Patient wants to go home. Continue empiric steroids along with antibiotics and scheduled nebulizer with improvement. Wean off O2 as tolerated. Subjective Date of service: 09/18/20 Interval history: Patient seen and examined. Medical records and medication list reviewed. No acute event overnight noted by the RN. He remains on high flow oxygen, vitals noted and stable Discussed plan of care at bedside with patient and with patient's family. Objective - Exam Narrative Exam: GENERAL: well-developed elderly white male lying on bed appeared to be in mild discomfort. HEENT: Normocephalic. Atraumatic. No conjunctival congestion or icterus. Patient has moist mucous membranes. NECK: Supple. Trachea midline. CHEST/LUNGS: Diminished breath sound with rhonchi auscultated bilaterally, breathing slightly labored. HEART/CARDIOVASCULAR: Regular in rate and rhythm. S1 and S2 positive. ABDOMEN: Abdomen is soft, nontender. Patient has normal bowel sounds. SKIN: There is no rash. Warm and dry. NEURO: No focal motor deficit. Follows command. MUSCULOSKELETAL: No joint effusion or tenderness. EXTRIMITY: No edema, no cyanosis or clubbing. PSYCH: Cooperative but anxious. - Constitutional Vitals: Vital Signs - 12hr 09/18/20 09/18/20 09/18/20 02:25 10:24 10:25 Temperature Pulse Rate 74 67 Respiratory Rate Blood Pressure 130/59 O2 Sat by Pulse 94 98 99 Oximetry 09/18/20 09/18/20 09/18/20 10:36 10:38 12:04 Temperature 98.9 F Pulse Rate 71 Respiratory 19 Rate Blood Pressure 130/59 130/59 129/61 O2 Sat by Pulse 95 Oximetry - Labs CBC & Chem 7: 09/18/20 06:07 09/19/20 07:43 Labs: Abnormal lab results 09/18/20 09/18/20 Range/Units 06:07 06:07 Hct 34.7 L (35.5-45.6) % MCHC 35 H (32-34) % RDW 16.1 H (13.2-15.2) % Creatinine 0.6 L (0.8-1.3) mg/dL HEART Score - HEART Score Troponin: Troponin T < 0.010 ng/mL (0.00-0.029) 09/12/20 16:46
--- NOTE | 2020-09-18 12:54 | Progress Note ---
Assessment and Plan Patient is an 85-year old M with chronic respiratory failure, severe COPD on home oxygen, atrial fibrillation on Eliquis who presents with worsening shortness of breath, cough, and wheezing. Chest x- ray reports findings of bilateral pulmonary opacities. A/P -- Acute on chronic respiratory failure with hypoxemia Patient on 4 to 5 L oxygen at home Likely due to COPD exacerbation with underlying pneumonia Continue supplemental oxygen, noninvasive positive pressure ventilation as needed, nebulizer breathing treatment, empiric steroid, IV antibiotics pulmonary team consulted, continue medical management. --Bilateral pneumonia , likely community-acquired Pneumonia protocol: IV antibiotic therapy, blood culture, supplemental oxygen, pulse oximetry. Nebulizer therapy. -- Suspected 2019 novel coronavirus infection, ruled out with a negative test --Acute on chronic diastolic CHF cardiology team consulted, echocardiogram, BNP, thyroid panel, magnesium level, afterload reduction, Continue Lasix IV, -- Atrial fibrillation/flutter Rate control, continue therapeutic anticoagulation, cardiology team consulted. --Hemoptysis, will monitor H&H, will repeat chest x-ray and sputum culture If continues to have hemoptysis may have to hold anticoagulation --Hyperkalemia, follow BMP Kayexalate as needed --Peripheral arterial disease, patient on aspirin Plavix and statin -- DVT prophylaxis SCD to bilateral lower extremities while in bed, continue therapeutic anticoagulation Daily clinical course: 09/13/20: Pending COVID-19 test, 2D echo showed EF 55 to 60%. Amiodarone has been started for his atrial flutter. Continue current care, follow clinically. Patient on 8 L nasal cannula, wean off as tolerated 09/14/20: Patient placed on high flow O2 today, Covid test is negative. Continue to treat for community-acquired pneumonia. Continue empiric steroid, IV antibiotics and nebulizer breathing treatment along with IV diuresis. Monitor ins and O's. Repeat chest x-ray tomorrow morning. 09/15/20: Patient complains of blood with cough. will monitor H&H, will repeat chest x-ray and sputum culture. If continues to have hemoptysis may have to hold anticoagulation. Patient remains on high flow O2, continue to follow clinically and wean off as tolerated 09/16/20: Denies any hemoptysis. Patient remains on 25 L 75% FiO2. Continue to wean off as tolerated. Pulmonary following. Continue nebulizer treatment, empiric antibiotics, IV steroid and gentle diuresis. 09/17/20: Patient remains on high flow O2, continue to wean off O2 as tolerated. Pulmonary following. Continue supportive care and scheduled nebulizer breathing treatment along with empiric antibiotics. Subjective Date of service: 09/17/20 Interval history: Patient seen and examined. Medical records and medication list reviewed. No acute event overnight noted by the RN. Patient denies any chest pain but complains of difficulty breathing. Patient is tolerating diet. He remains on high flow oxygen, vitals noted and stable Discussed plan of care at bedside with patient. Objective - Exam Narrative Exam: GENERAL: well-developed elderly white male lying on bed appeared to be in mild discomfort. HEENT: Normocephalic. Atraumatic. No conjunctival congestion or icterus. Patient has moist mucous membranes. NECK: Supple. Trachea midline. CHEST/LUNGS: Diminished breath sound with rhonchi auscultated bilaterally, breathing slightly labored. HEART/CARDIOVASCULAR: Regular in rate and rhythm. S1 and S2 positive. ABDOMEN: Abdomen is soft, nontender. Patient has normal bowel sounds. SKIN: There is no rash. Warm and dry. NEURO: No focal motor deficit. Follows command. MUSCULOSKELETAL: No joint effusion or tenderness. EXTRIMITY: No edema, no cyanosis or clubbing. PSYCH: Cooperative but anxious. - Constitutional Vitals: Vital Signs - 12hr 09/18/20 09/18/20 09/18/20 02:25 10:24 10:25 Temperature Pulse Rate 74 67 Respiratory Rate Blood Pressure 130/59 O2 Sat by Pulse 94 98 99 Oximetry 09/18/20 09/18/20 09/18/20 10:36 10:38 12:04 Temperature 98.9 F Pulse Rate 71 Respiratory 19 Rate Blood Pressure 130/59 130/59 129/61 O2 Sat by Pulse 95 Oximetry - Labs CBC & Chem 7: 09/18/20 06:07 09/18/20 06:07 Labs: Abnormal lab results 09/18/20 09/18/20 Range/Units 06:07 06:07 Hct 34.7 L (35.5-45.6) % MCHC 35 H (32-34) % RDW 16.1 H (13.2-15.2) % Creatinine 0.6 L (0.8-1.3) mg/dL HEART Score - HEART Score Troponin: Troponin T < 0.010 ng/mL (0.00-0.029) 09/12/20 16:46
[2020-09-18] MEDS: PRAVASTATIN 40 MG TAB PO SCH (21:41)
[2020-09-19] MEDS: IPRATROPIUM/ALBUTEROL SULFATE 3 ML AMPUL.NEB IH SCH ×4 (04:42→20:33)
[2020-09-19] MEDS: FUROSEMIDE 20 MG/2 ML INJ IV SCH ×2 (06:00→18:53)
[2020-09-19] MEDS: methylPREDNISolone Sod Succinate 125 MG/2 ML INJ IV SCH ×4 (06:00→23:45)
[2020-09-19] MEDS: BUDESONIDE 0.5 MG/2 ML NEBU IH SCH ×2 (08:03→20:35)
[2020-09-19 08:52] LABS: Blood Urea Nitrogen 26 mg/dL (9-20); Hemolysis Index 2
[2020-09-19 08:57] LABS: BUN/Creatinine Ratio 43
--- NOTE | 2020-09-19 09:13 | Progress Note ---
Assessment and Plan 85 y/o male with exacerbation of his ILD, most likely secondary to volume overload and COPD exacerbation. 09/19/20: Same recs as yesterday. Continue to wean FiO2 for sats >88% 09/18/20: Suggest increasing lasix to 40 BID, at least for 1-2 days to achieve net negative state to see if this helps with oxygenation. If no improvement with increase in lasix, will have discussion with patient about other options (palliative care, hospice). per cards systolic function normal from 2 years ago at last office visit. 09/17/20: Increase steroids to 60q6 starting today. Strict I/O with goal of daily net negative state to keep the lungs as dry as possible. 09/14/20: Agree with BID dosing of lasix but I gave an additional 20 today on top of the 20 BID ordered by IMS. Please order strict i/o. If no improvement with increased diuretic therapy, tomorrow would increase steroids to 60q6. Guarded prognosis. need to discuss code status with patient. Will attempt to do later today. 1. WIll give a one time dose of IV lasix now and patient likely will need home dosing of lasix at discharge. I suspect he has pulmonary HTN from his ILD and should be kept as dry as possible or as dry as bp and renal function will allow. 2. Suggest obtaing 2 D echo to look for Pulm HTN as well as to make sure systolic function is still normal 3. VTE is on the differential for exacerbation of ILD, however don't feel CTA is needed at this time. If echo suggest rv strain could consider obtaining CTA 4. Would switch to prednisone 60 daily and taper as follows: 60 daily for 3 days, 40 daily for 3 days then 20 daily for 3 days then stop. 5. Not sure why patient has not followed up with Dr. Francis but is welcome to come back to the office post discharge 6. He will need a walk test prior to discharge to see what his new exertional oxygen requirement may be. Given age and underlying lung disease, prognosis is guarded. Subjective Date of service: 09/19/20 Interval history: Down to 20 liters and 50%. Good sats. Still has positive fluid balance Objective Vital Signs - 12hr 09/18/20 09/19/20 09/19/20 22:00 01:52 05:56 Temperature Pulse Rate 69 Pulse Rate [ 74 Left Brachial] Respiratory 22 Rate Blood Pressure [Left] O2 Sat by Pulse 95 100 92 Oximetry 09/19/20 05:58 Temperature 97.8 F Pulse Rate Pulse Rate [ Left Brachial] Respiratory 20 Rate Blood Pressure 131/64 [Left] O2 Sat by Pulse Oximetry Constitutional: no acute distress Eyes: non-icteric ENT: oropharynx moist Neck: supple Effort: normal Ascultation: Bilateral: diminished breath sounds Cardiovascular: regular rate and rhythm Gastrointestinal: normoactive bowel sounds, non-tender, other (obese) Neurologic: non-focal exam Psychiatric: mood appropriate CBC and BMP: 09/18/20 06:07 09/19/20 07:43 ABG, PT/INR, D-dimer: ABG ABG pH 7.448 (7.320-7.450) 09/12/20 12:15 POC ABG pCO2 27.3 mmHg (32.0-48.0) L 09/12/20 12:15 POC ABG pO2 79.9 mmHg (83-108) L 09/12/20 12:15 POC ABG HCO3 18.5 09/12/20 12:15 ABG O2 Saturation 96.3 (0-100) 09/12/20 12:15 PT/INR, D-dimer PT 16.2 Sec. (12.2-14.9) H 09/12/20 12:47 INR 1.25 (0.87-1.13) H 09/12/20 12:47 D-Dimer 403.72 ng/mlDDU (0-234) H 09/12/20 12:47 Abnormal lab findings: Abnormal Labs 09/12/20 09/12/20 09/12/20 11:20 11:20 11:20 WBC RBC Hgb Hct 35.4 L MCHC RDW 15.9 H Lymph % (Auto) 7.9 L Lymph # (Auto) 0.8 L Seg Neutrophils % 88.4 H Seg Neutrophils # 8.6 H PT 15.4 H INR 1.17 H D-Dimer POC ABG pCO2 POC ABG pO2 ABG Sodium ABG Chloride ABG Glucose Sodium 130 L Potassium Chloride 93.5 L Carbon Dioxide BUN 5 L Creatinine 0.6 L Glucose 118 H Calcium Magnesium Lactate Dehydrogenase C-Reactive Protein NT-Pro-B Natriuret Pep 2014 H Albumin 3.6 L Arterial Blood Glucose Arterial Blood Ionized Calcium 09/12/20 09/12/20 09/12/20 12:15 12:42 12:42 WBC RBC Hgb Hct 35.4 L MCHC RDW 15.7 H Lymph % (Auto) Lymph # (Auto) Seg Neutrophils % Seg Neutrophils # PT INR D-Dimer POC ABG pCO2 27.3 L POC ABG pO2 79.9 L ABG Sodium 129.0 L ABG Chloride 97.0 L ABG Glucose 153 H Sodium Potassium Chloride Carbon Dioxide BUN Creatinine 0.6 L Glucose Calcium Magnesium Lactate Dehydrogenase C-Reactive Protein NT-Pro-B Natriuret Pep Albumin Arterial Blood Glucose 153 H Arterial Blood Ionized Calcium 4.5 L 09/12/20 09/12/20 09/12/20 12:47 13:40 13:40 WBC RBC Hgb Hct MCHC RDW Lymph % (Auto) Lymph # (Auto) Seg Neutrophils % Seg Neutrophils # PT 16.2 H INR 1.25 H D-Dimer 403.72 H POC ABG pCO2 POC ABG pO2 ABG Sodium ABG Chloride ABG Glucose Sodium Potassium Chloride Carbon Dioxide BUN Creatinine Glucose 103 H Calcium Magnesium 2.50 H Lactate Dehydrogenase 273 H C-Reactive Protein 5.40 H NT-Pro-B Natriuret Pep Albumin Arterial Blood Glucose Arterial Blood Ionized Calcium 09/13/20 09/13/20 09/14/20 07:43 07:43 05:33 WBC 11.5 H RBC 3.59 L Hgb 11.2 L Hct 31.4 L MCHC 36 H RDW 16.0 H 16.2 H Lymph % (Auto) 12.4 L Lymph # (Auto) 0.8 L Seg Neutrophils % 85.6 H Seg Neutrophils # PT INR D-Dimer POC ABG pCO2 POC ABG pO2 ABG Sodium ABG Chloride ABG Glucose Sodium 135 L Potassium 5.1 H D Chloride Carbon Dioxide BUN Creatinine 0.6 L Glucose 144 H Calcium Magnesium Lactate Dehydrogenase C-Reactive Protein NT-Pro-B Natriuret Pep Albumin 3.4 L Arterial Blood Glucose Arterial Blood Ionized Calcium 09/14/20 09/15/20 09/16/20 10:04 05:21 05:24 WBC RBC Hgb 11.3 L Hct 33.0 L MCHC RDW 16.1 H Lymph % (Auto) 9.2 L Lymph # (Auto) 0.7 L Seg Neutrophils % 85.4 H Seg Neutrophils # PT INR D-Dimer POC ABG pCO2 POC ABG pO2 ABG Sodium ABG Chloride ABG Glucose Sodium 135 L Potassium Chloride 97.5 L Carbon Dioxide BUN Creatinine 0.6 L Glucose 213 H 149 H Calcium 8.2 L 8.0 L Magnesium Lactate Dehydrogenase C-Reactive Protein NT-Pro-B Natriuret Pep Albumin Arterial Blood Glucose Arterial Blood Ionized Calcium 09/18/20 09/18/20 09/19/20 06:07 06:07 07:43 WBC RBC Hgb Hct 34.7 L MCHC 35 H RDW 16.1 H Lymph % (Auto) Lymph # (Auto) Seg Neutrophils % Seg Neutrophils # PT INR D-Dimer POC ABG pCO2 POC ABG pO2 ABG Sodium ABG Chloride ABG Glucose Sodium Potassium 3.3 L Chloride 94.5 L Carbon Dioxide 35 H D BUN 26 H Creatinine 0.6 L 0.6 L Glucose 173 H Calcium 8.0 L Magnesium Lactate Dehydrogenase C-Reactive Protein NT-Pro-B Natriuret Pep Albumin Arterial Blood Glucose Arterial Blood Ionized Calcium
--- NOTE | 2020-09-19 09:44 | Progress Note ---
Assessment and Plan Atrial fibrillation/flutter, persistent on Eliquis as an outpatient normal LVEF by echo this presentation On his last office visit less than 2 months ago, his EKG was a sinus rhythm. Hx of CAD COPD exacerbation Possible pneumonia Hx of PAD - on plavix Recommendations: Continue current medical management of atrial flutter that persists. Otherwise, conservative cardiac management. Subjective Date of service: 09/19/20 Interval history: Remains on high flow oxygen. No cardiac complaints. Currently, plum packer shows atrial flutter with a well controlled ventricular rate. Objective Vital Signs Temp Pulse Pulse Pulse Resp Resp BP 09/19/20 05:58 97.8 F 20 09/19/20 05:56 69 09/19/20 01:52 09/18/20 22:00 74 22 09/18/20 20:48 74 18 09/18/20 20:04 98.0 F 65 22 131/65 09/18/20 20:00 09/18/20 16:30 98.6 F 66 20 129/67 09/18/20 16:25 09/18/20 16:05 78 18 09/18/20 12:04 98.9 F 71 19 129/61 09/18/20 10:38 130/59 09/18/20 10:36 130/59 09/18/20 10:25 67 09/18/20 10:24 74 130/59 09/18/20 10:10 78 18 BP Pulse Ox 09/19/20 05:58 131/64 09/19/20 05:56 92 09/19/20 01:52 100 09/18/20 22:00 95 09/18/20 20:48 09/18/20 20:04 95 09/18/20 20:00 97 09/18/20 16:30 98 09/18/20 16:25 93 09/18/20 16:05 09/18/20 12:04 95 09/18/20 10:38 09/18/20 10:36 09/18/20 10:25 95 09/18/20 10:24 98 09/18/20 10:10 - Physical Examination General: No Apparent Distress, Other (on high flow oxygen) HEENT: Positive: PERRL Neck: Positive: trachea midline Cardiac: Positive: irregularly irregular Lungs: Positive: Decreased Breath Sounds Neuro: Positive: Grossly Intact Extremities: Absent: edema - Labs and Meds Comprehensive Metabolic Panel 09/19/20 Range/Units 07:43 Sodium 137 (137-145) mmol/L Potassium 3.3 L (3.6-5.0) mmol/L Chloride 94.5 L (98-107) mmol/L Carbon Dioxide 35 H D (22-30) mmol/L BUN 26 H (9-20) mg/dL Creatinine 0.6 L (0.8-1.3) mg/dL Glucose 173 H (75-100) mg/dL Calcium 8.0 L (8.4-10.2) mg/dL
[2020-09-19] MEDS: EZETIMIBE 10 MG TAB PO SCH (10:06)
[2020-09-19] MEDS: ASCORBIC ACID 500 MG TAB PO SCH ×2 (10:06→21:53)
[2020-09-19] MEDS: LOSARTAN 50 MG TAB PO SCH (10:06)
[2020-09-19] MEDS: ASPIRIN 81 MG TAB CHEW PO SCH (10:06)
[2020-09-19] MEDS: CETIRIZINE 10 MG TAB PO SCH (10:07)
[2020-09-19] MEDS: APIXABAN 2.5 MG TAB PO SCH ×2 (10:07→21:53)
[2020-09-19] MEDS: CHOLECALCIFEROL (VIT D3) 1000 UNIT (25 mcg) TAB PO SCH (10:07)
[2020-09-19] MEDS: ZINC SULFATE 220 MG CAP PO SCH ×2 (10:07→21:53)
[2020-09-19] MEDS: CLOPIDOGREL 75 MG TAB PO SCH (10:09)
[2020-09-19] MEDS: LIDOCAINE 5% 1 EACH PATCH TD SCH ×2 (10:11→10:25)
[2020-09-19] MEDS: CEFEPIME/NS 2 GM/100 ML 2 GM/100 ML BAG IV SCH ×2 (10:20→21:52)
[2020-09-19] MEDS: carvediloL 3.125 MG TAB PO SCH ×2 (14:18→21:54)
[2020-09-19] MEDS: AMIODARONE 200 MG TAB PO SCH ×2 (14:21→21:54)
--- NOTE | 2020-09-19 15:19 | Progress Note ---
Assessment and Plan Patient is an 85-year old M with chronic respiratory failure, severe COPD on home oxygen, atrial fibrillation on Eliquis who presents with worsening shortness of breath, cough, and wheezing. Chest x- ray reports findings of bilateral pulmonary opacities. A/P -- Acute on chronic respiratory failure with hypoxemia Patient on 4 to 5 L oxygen at home Likely due to COPD exacerbation with underlying pneumonia Continue supplemental oxygen, noninvasive positive pressure ventilation as needed, nebulizer breathing treatment, empiric steroid, IV antibiotics pulmonary team consulted, continue medical management. --Bilateral pneumonia , likely community-acquired Pneumonia protocol: IV antibiotic therapy, blood culture, supplemental oxygen, pulse oximetry. Nebulizer therapy. -- Suspected 2019 novel coronavirus infection, ruled out with a negative test --Acute on chronic diastolic CHF cardiology team consulted, echocardiogram, BNP, thyroid panel, magnesium level, afterload reduction, Continue Lasix IV, -- Atrial fibrillation/flutter Rate control, continue therapeutic anticoagulation, cardiology team consulted. --Hemoptysis, will monitor H&H, will repeat chest x-ray and sputum culture If continues to have hemoptysis may have to hold anticoagulation --Hyperkalemia, follow BMP Kayexalate as needed --Peripheral arterial disease, patient on aspirin Plavix and statin -- DVT prophylaxis SCD to bilateral lower extremities while in bed, continue therapeutic anticoagulation Daily clinical course: 09/13/20: Pending COVID-19 test, 2D echo showed EF 55 to 60%. Amiodarone has been started for his atrial flutter. Continue current care, follow clinically. Patient on 8 L nasal cannula, wean off as tolerated 09/14/20: Patient placed on high flow O2 today, Covid test is negative. Continue to treat for community-acquired pneumonia. Continue empiric steroid, IV antibiotics and nebulizer breathing treatment along with IV diuresis. Monitor ins and O's. Repeat chest x-ray tomorrow morning. 09/15/20: Patient complains of blood with cough. will monitor H&H, will repeat chest x-ray and sputum culture. If continues to have hemoptysis may have to hold anticoagulation. Patient remains on high flow O2, continue to follow clinically and wean off as tolerated 09/16/20: Denies any hemoptysis. Patient remains on 25 L 75% FiO2. Continue to wean off as tolerated. Pulmonary following. Continue nebulizer treatment, empiric antibiotics, IV steroid and gentle diuresis. 09/17/20: Patient remains on high flow O2, continue to wean off O2 as tolerated. Pulmonary following. Continue supportive care and scheduled nebulizer breathing treatment along with empiric antibiotics. 09/18/20: Patient remains on high flow O2. Patient family at bedside and I updated them in details. Patient wants to go home. Continue empiric steroids along with antibiotics and scheduled nebulizer with improvement. Wean off O2 as tolerated. 09/19/20: Cont to wean off O2 as tolerated. his O2 requirement still higher than home O2 could be arranged. cont supportive care. Subjective Date of service: 09/19/20 Interval history: Patient seen and examined. Medical records and medication list reviewed. No acute event overnight noted by the RN. He remains on supplemental oxygen, vitals noted and stable Discussed plan of care at bedside with patient . Objective - Exam Narrative Exam: GENERAL: well-developed elderly white male lying on bed appeared to be in mild discomfort. HEENT: Normocephalic. Atraumatic. No conjunctival congestion or icterus. Patient has moist mucous membranes. NECK: Supple. Trachea midline. CHEST/LUNGS: Diminished breath sound with rhonchi auscultated bilaterally, breathing slightly labored. HEART/CARDIOVASCULAR: Regular in rate and rhythm. S1 and S2 positive. ABDOMEN: Abdomen is soft, nontender. Patient has normal bowel sounds. SKIN: There is no rash. Warm and dry. NEURO: No focal motor deficit. Follows command. MUSCULOSKELETAL: No joint effusion or tenderness. EXTRIMITY: No edema, no cyanosis or clubbing. PSYCH: Cooperative but anxious. - Constitutional Vitals: Vital Signs - 12hr 09/19/20 09/19/20 09/19/20 05:56 05:58 06:15 Temperature 97.8 F Pulse Rate 69 Pulse Rate [ Anterior Bilateral Throughout] Respiratory 20 Rate Respiratory Rate [Anterior Bilateral Throughout] Blood Pressure 172/99 Blood Pressure 131/64 [Left] O2 Sat by Pulse 92 Oximetry 09/19/20 09/19/20 09/19/20 08:00 08:05 10:06 Temperature Pulse Rate 69 Pulse Rate [ 82 Anterior Bilateral Throughout] Respiratory Rate Respiratory 18 Rate [Anterior Bilateral Throughout] Blood Pressure 126/57 Blood Pressure [Left] O2 Sat by Pulse 93 Oximetry 09/19/20 09/19/20 10:14 13:07 Temperature 97.6 F Pulse Rate 69 Pulse Rate [ Anterior Bilateral Throughout] Respiratory 17 Rate Respiratory Rate [Anterior Bilateral Throughout] Blood Pressure 126/57 Blood Pressure 135/96 [Left] O2 Sat by Pulse 93 Oximetry - Labs CBC & Chem 7: 09/18/20 06:07 09/21/20 07:34 Labs: Abnormal lab results 09/19/20 Range/Units 07:43 Potassium 3.3 L (3.6-5.0) mmol/L Chloride 94.5 L (98-107) mmol/L Carbon Dioxide 35 H D (22-30) mmol/L BUN 26 H (9-20) mg/dL Creatinine 0.6 L (0.8-1.3) mg/dL Glucose 173 H (75-100) mg/dL Calcium 8.0 L (8.4-10.2) mg/dL HEART Score - HEART Score Troponin: Troponin T < 0.010 ng/mL (0.00-0.029) 09/12/20 16:46
[2020-09-19] MEDS: PRAVASTATIN 40 MG TAB PO SCH (21:53)
[2020-09-20] MEDS: IPRATROPIUM/ALBUTEROL SULFATE 3 ML AMPUL.NEB IH SCH ×4 (03:09→20:36)
[2020-09-20] MEDS: methylPREDNISolone Sod Succinate 125 MG/2 ML INJ IV SCH (05:26)
[2020-09-20] MEDS: FUROSEMIDE 20 MG/2 ML INJ IV SCH (05:26)
[2020-09-20] MEDS: BUDESONIDE 0.5 MG/2 ML NEBU IH SCH ×2 (08:34→20:36)
--- NOTE | 2020-09-20 09:35 | Progress Note ---
Assessment and Plan 85 y/o male with exacerbation of his ILD, most likely secondary to volume overload and COPD exacerbation. 09/20/20: patient very adamant about going home. Not sure how much movement he does at home but sats of >88% on his baseline of 5 liters is fine. Will need prolonged taper at discharge. Suggest the followin daily for 4 days, 40 daily for 4 days, 20 daily for 4 days, then 10 daily for 4 days then stop. he can follow up with Dr. Ellis with [facility] at discharge. Apparently he is not going to follow back up with [facility]. 09/19/20: Same recs as yesterday. Continue to wean FiO2 for sats >88% 09/18/20: Suggest increasing lasix to 40 BID, at least for 1-2 days to achieve net negative state to see if this helps with oxygenation. If no improvement with increase in lasix, will have discussion with patient about other options (palliative care, hospice). per cards systolic function normal from 2 years ago at last office visit. 09/17/20: Increase steroids to 60q6 starting today. Strict I/O with goal of daily net negative state to keep the lungs as dry as possible. 09/14/20: Agree with BID dosing of lasix but I gave an additional 20 today on top of the 20 BID ordered by IMS. Please order strict i/o. If no improvement with increased diuretic therapy, tomorrow would increase steroids to 60q6. Guarded prognosis. need to discuss code status with patient. Will attempt to do later today. 1. WIll give a one time dose of IV lasix now and patient likely will need home dosing of lasix at discharge. I suspect he has pulmonary HTN from his ILD and should be kept as dry as possible or as dry as bp and renal function will allow. 2. Suggest obtaing 2 D echo to look for Pulm HTN as well as to make sure systolic function is still normal 3. VTE is on the differential for exacerbation of ILD, however don't feel CTA is needed at this time. If echo suggest rv strain could consider obtaining CTA 4. Would switch to prednisone 60 daily and taper as follows: 60 daily for 3 days, 40 daily for 3 days then 20 daily for 3 days then stop. 5. Not sure why patient has not followed up with Dr. Francis but is welcome to come back to the office post discharge 6. He will need a walk test prior to discharge to see what his new exertional oxygen requirement may be. Given age and underlying lung disease, prognosis is guarded. Subjective Date of service: 09/20/20 Interval history: Patient back down to 5 liters. Sats in the high 80's. patient is on 5 liters at home. Wants to go home. I spoke with his pulm doc, Dr. Ellis yesterday who is with [facility]. Objective Vital Signs - 12hr 09/19/20 09/19/20 09/19/20 21:51 21:54 22:00 Temperature 98.0 F Pulse Rate 70 74 Pulse Rate [ Anterior Bilateral Throughout] Respiratory 19 18 Rate Respiratory Rate [Anterior Bilateral Throughout] Respiratory 19 Rate [Chest] Blood Pressure 128/60 128/60 O2 Sat by Pulse 95 96 Oximetry 09/19/20 09/20/20 09/20/20 22:28 05:55 08:00 Temperature 98.5 F 97.5 F L Pulse Rate 70 71 Pulse Rate [ 89 Anterior Bilateral Throughout] Respiratory 18 18 Rate Respiratory 18 Rate [Anterior Bilateral Throughout] Respiratory Rate [Chest] Blood Pressure 148/65 135/63 O2 Sat by Pulse 90 91 89 Oximetry Constitutional: no acute distress Eyes: non-icteric ENT: oropharynx moist Neck: supple Effort: normal Ascultation: Bilateral: diminished breath sounds Cardiovascular: regular rate and rhythm Gastrointestinal: normoactive bowel sounds, non-tender, other (obese) Neurologic: non-focal exam Psychiatric: mood appropriate CBC and BMP: 09/18/20 06:07 09/19/20 07:43 ABG, PT/INR, D-dimer: ABG ABG pH 7.448 (7.320-7.450) 09/12/20 12:15 POC ABG pCO2 27.3 mmHg (32.0-48.0) L 09/12/20 12:15 POC ABG pO2 79.9 mmHg (83-108) L 09/12/20 12:15 POC ABG HCO3 18.5 09/12/20 12:15 ABG O2 Saturation 96.3 (0-100) 09/12/20 12:15 PT/INR, D-dimer PT 16.2 Sec. (12.2-14.9) H 09/12/20 12:47 INR 1.25 (0.87-1.13) H 09/12/20 12:47 D-Dimer 403.72 ng/mlDDU (0-234) H 09/12/20 12:47 Abnormal lab findings: Abnormal Labs 09/12/20 09/12/20 09/12/20 11:20 11:20 11:20 WBC RBC Hgb Hct 35.4 L MCHC RDW 15.9 H Lymph % (Auto) 7.9 L Lymph # (Auto) 0.8 L Seg Neutrophils % 88.4 H Seg Neutrophils # 8.6 H PT 15.4 H INR 1.17 H D-Dimer POC ABG pCO2 POC ABG pO2 ABG Sodium ABG Chloride ABG Glucose Sodium 130 L Potassium Chloride 93.5 L Carbon Dioxide BUN 5 L Creatinine 0.6 L Glucose 118 H Calcium Magnesium Lactate Dehydrogenase C-Reactive Protein NT-Pro-B Natriuret Pep 2014 H Albumin 3.6 L Arterial Blood Glucose Arterial Blood Ionized Calcium 09/12/20 09/12/20 09/12/20 12:15 12:42 12:42 WBC RBC Hgb Hct 35.4 L MCHC RDW 15.7 H Lymph % (Auto) Lymph # (Auto) Seg Neutrophils % Seg Neutrophils # PT INR D-Dimer POC ABG pCO2 27.3 L POC ABG pO2 79.9 L ABG Sodium 129.0 L ABG Chloride 97.0 L ABG Glucose 153 H Sodium Potassium Chloride Carbon Dioxide BUN Creatinine 0.6 L Glucose Calcium Magnesium Lactate Dehydrogenase C-Reactive Protein NT-Pro-B Natriuret Pep Albumin Arterial Blood Glucose 153 H Arterial Blood Ionized Calcium 4.5 L 09/12/20 09/12/20 09/12/20 12:47 13:40 13:40 WBC RBC Hgb Hct MCHC RDW Lymph % (Auto) Lymph # (Auto) Seg Neutrophils % Seg Neutrophils # PT 16.2 H INR 1.25 H D-Dimer 403.72 H POC ABG pCO2 POC ABG pO2 ABG Sodium ABG Chloride ABG Glucose Sodium Potassium Chloride Carbon Dioxide BUN Creatinine Glucose 103 H Calcium Magnesium 2.50 H Lactate Dehydrogenase 273 H C-Reactive Protein 5.40 H NT-Pro-B Natriuret Pep Albumin Arterial Blood Glucose Arterial Blood Ionized Calcium 09/13/20 09/13/20 09/14/20 07:43 07:43 05:33 WBC 11.5 H RBC 3.59 L Hgb 11.2 L Hct 31.4 L MCHC 36 H RDW 16.0 H 16.2 H Lymph % (Auto) 12.4 L Lymph # (Auto) 0.8 L Seg Neutrophils % 85.6 H Seg Neutrophils # PT INR D-Dimer POC ABG pCO2 POC ABG pO2 ABG Sodium ABG Chloride ABG Glucose Sodium 135 L Potassium 5.1 H D Chloride Carbon Dioxide BUN Creatinine 0.6 L Glucose 144 H Calcium Magnesium Lactate Dehydrogenase C-Reactive Protein NT-Pro-B Natriuret Pep Albumin 3.4 L Arterial Blood Glucose Arterial Blood Ionized Calcium 09/14/20 09/15/20 09/16/20 10:04 05:21 05:24 WBC RBC Hgb 11.3 L Hct 33.0 L MCHC RDW 16.1 H Lymph % (Auto) 9.2 L Lymph # (Auto) 0.7 L Seg Neutrophils % 85.4 H Seg Neutrophils # PT INR D-Dimer POC ABG pCO2 POC ABG pO2 ABG Sodium ABG Chloride ABG Glucose Sodium 135 L Potassium Chloride 97.5 L Carbon Dioxide BUN Creatinine 0.6 L Glucose 213 H 149 H Calcium 8.2 L 8.0 L Magnesium Lactate Dehydrogenase C-Reactive Protein NT-Pro-B Natriuret Pep Albumin Arterial Blood Glucose Arterial Blood Ionized Calcium 09/18/20 09/18/20 09/19/20 06:07 06:07 07:43 WBC RBC Hgb Hct 34.7 L MCHC 35 H RDW 16.1 H Lymph % (Auto) Lymph # (Auto) Seg Neutrophils % Seg Neutrophils # PT INR D-Dimer POC ABG pCO2 POC ABG pO2 ABG Sodium ABG Chloride ABG Glucose Sodium Potassium 3.3 L Chloride 94.5 L Carbon Dioxide 35 H D BUN 26 H Creatinine 0.6 L 0.6 L Glucose 173 H Calcium 8.0 L Magnesium Lactate Dehydrogenase C-Reactive Protein NT-Pro-B Natriuret Pep Albumin Arterial Blood Glucose Arterial Blood Ionized Calcium
--- NOTE | 2020-09-20 09:42 | Progress Note ---
Assessment and Plan Atrial fibrillation/flutter, persistent on Eliquis as an outpatient. on amiodarone and carvedilol. normal LVEF by echo this presentation. On his last office visit less than 2 months ago, his EKG was a sinus rhythm. Hx of CAD COPD exacerbation Possible pneumonia Hx of PAD - on plavix Recommendations: Continue current medical management of atrial flutter that persists. Otherwise, conservative cardiac management. Subjective Date of service: 09/20/20 Interval history: No interval cardiac changes. Atrial flutter with a well controlled ventricular rate on telemetry. Objective Vital Signs Temp Pulse Pulse Resp Resp Resp BP 09/20/20 08:00 89 18 09/20/20 05:55 97.5 F L 71 18 135/63 09/19/20 22:28 98.5 F 70 18 148/65 09/19/20 22:00 18 19 09/19/20 21:54 74 128/60 09/19/20 21:51 98.0 F 70 19 128/60 09/19/20 20:35 77 18 09/19/20 20:00 09/19/20 16:29 59 L 09/19/20 16:10 09/19/20 15:40 97.6 F 64 16 09/19/20 14:25 88 18 09/19/20 13:07 97.6 F 69 17 09/19/20 10:40 09/19/20 10:14 126/57 09/19/20 10:06 69 126/57 BP Pulse Ox 09/20/20 08:00 89 09/20/20 05:55 91 09/19/20 22:28 90 09/19/20 22:00 96 09/19/20 21:54 09/19/20 21:51 95 09/19/20 20:35 09/19/20 20:00 93 09/19/20 16:29 09/19/20 16:10 91 09/19/20 15:40 136/60 86 09/19/20 14:25 09/19/20 13:07 135/96 93 09/19/20 10:40 93 09/19/20 10:14 09/19/20 10:06 - Physical Examination General: No Apparent Distress HEENT: Positive: PERRL Neck: Positive: trachea midline Cardiac: Positive: irregularly irregular Lungs: Positive: Decreased Breath Sounds Neuro: Positive: Grossly Intact Extremities: Absent: edema
[2020-09-20] MEDS: EZETIMIBE 10 MG TAB PO SCH (10:12)
[2020-09-20] MEDS: ASPIRIN 81 MG TAB CHEW PO SCH (10:12)
[2020-09-20] MEDS: LOSARTAN 50 MG TAB PO SCH (10:12)
[2020-09-20] MEDS: ZINC SULFATE 220 MG CAP PO SCH ×2 (10:12→21:36)
[2020-09-20] MEDS: CLOPIDOGREL 75 MG TAB PO SCH (10:12)
[2020-09-20] MEDS: CHOLECALCIFEROL (VIT D3) 1000 UNIT (25 mcg) TAB PO SCH (10:12)
[2020-09-20] MEDS: AMIODARONE 200 MG TAB PO SCH ×2 (10:13→21:37)
[2020-09-20] MEDS: ASCORBIC ACID 500 MG TAB PO SCH ×2 (10:13→21:36)
[2020-09-20] MEDS: LIDOCAINE 5% 1 EACH PATCH TD SCH (10:13)
[2020-09-20] MEDS: CETIRIZINE 10 MG TAB PO SCH (10:13)
[2020-09-20] MEDS: carvediloL 3.125 MG TAB PO SCH ×2 (10:13→21:37)
[2020-09-20] MEDS: APIXABAN 2.5 MG TAB PO SCH ×2 (10:14→21:36)
[2020-09-20] MEDS ORDERED: POTASSIUM CHLORIDE ER 20 MEQ TAB PO NR (11:33)
--- NOTE | 2020-09-20 11:34 | Progress Note ---
Subjective Date of service: 09/20/20 Interval history: Assessment and plan Patient is an 85-year old M with chronic respiratory failure, severe COPD on home oxygen, atrial fibrillation on Eliquis who presents with worsening shortness of breath, cough, and wheezing. Chest x- ray reports findings of bilateral pulmonary opacities. -- Acute on chronic respiratory failure with hypoxemia Patient on 4 to 5 L oxygen at home Likely due to COPD exacerbation with underlying pneumonia Pulmonary note reviewed Patient is on 5 L oxygen via nasal cannula this morning Discussed with RN about 6-minute walk on O2 However patient apparently has not been out of bed and is quite unsteady on his feet We will request physical therapy evaluation We will discontinue IV steroids and start on p.o. prednisone --Bilateral pneumonia , likely community-acquired Off antibiotic at this time He is afebrile CBC results reviewed -- Suspected 2019 novel coronavirus infection, ruled out with a negative test --Acute on chronic diastolic CHF cardiology team consulted, echocardiogram, BNP, thyroid panel, magnesium level, afterload reduction, Cardiology note reviewed Discontinue IV Lasix and start on p.o. Lasix -- Atrial fibrillation/flutter Rate controlled Continue Eliquis Cardiology note reviewed --Hemoptysis, -no active hemoptysis monitor H&H, --Hyperkalemia, -resolved Hypokalemia-likely secondary to IV diuretics No follow-up labs this morning We will give 1 dose of potassium 40 mEq Check electrolytes in a.m. --Peripheral arterial disease, patient on aspirin Plavix and statin -- DVT prophylaxis-Eliquis SCD to bilateral lower extremities while in bed, Daily clinical course: 09/13/20: Pending COVID-19 test, 2D echo showed EF 55 to 60%. Amiodarone has been started for his atrial flutter. Continue current care, follow clinically. Patient on 8 L nasal cannula, wean off as tolerated 09/14/20: Patient placed on high flow O2 today, Covid test is negative. Continue to treat for community-acquired pneumonia. Continue empiric steroid, IV antibiotics and nebulizer breathing treatment along with IV diuresis. Monitor ins and O's. Repeat chest x-ray tomorrow morning. 09/15/20: Patient complains of blood with cough. will monitor H&H, will repeat chest x-ray and sputum culture. If continues to have hemoptysis may have to hold anticoagulation. Patient remains on high flow O2, continue to follow clinically and wean off as tolerated 09/16/20: Denies any hemoptysis. Patient remains on 25 L 75% FiO2. Continue to wean off as tolerated. Pulmonary following. Continue nebulizer treatment, empiric antibiotics, IV steroid and gentle diuresis. 09/17/20: Patient remains on high flow O2, continue to wean off O2 as tolerated. Pulmonary following. Continue supportive care and scheduled nebulizer breathing treatment along with empiric antibiotics. 09/18/20: Patient remains on high flow O2. Patient family at bedside and I updated them in details. Patient wants to go home. Continue empiric steroids along with antibiotics and scheduled nebulizer with improvement. Wean off O2 as tolerated. 09/20-patient is alert and oriented and wants to go home. States he is on 5 L oxygen via nasal cannula at home. He denies any chest pain and states that his shortness of breath is at his baseline. Discussed with RN regarding 6-minute walk. However patient has not been out of bed and unsteady on his feet. We will request PT consult and get a 6-minute walk in a.m. and if stable and cleared by PT will discharge patient tomorrow Objective - Constitutional Vitals: Vital Signs - 12hr 09/20/20 09/20/20 09/20/20 05:55 08:00 10:12 Temperature 97.5 F L Pulse Rate 71 Pulse Rate [ 89 Anterior Bilateral Throughout] Respiratory 18 Rate Respiratory 18 Rate [Anterior Bilateral Throughout] Blood Pressure 135/63 135/65 O2 Sat by Pulse 91 89 Oximetry General appearance: Present: no acute distress - EENT Eyes: PERRL, EOM intact ENT: hearing intact - Neck Neck: supple, normal ROM, no masses or JVD - Respiratory Respiratory effort: normal Respiratory: bilateral: CTA, diminished - Cardiovascular Rhythm: irregularly irregular Heart Sounds: Present: S1 & S2 Extremities: No edema - Gastrointestinal General gastrointestinal: Present: soft, non-tender Rectal Exam: deferred - Genitourinary Male genitourinary: deferred - Integumentary Integumentary: clear - Neurologic Neurologic: moves all extremities (Gait not tested ) - Psychiatric Psychiatric: appropriate mood/affect - Labs CBC & Chem 7: 09/18/20 06:07 09/19/20 07:43 HEART Score - HEART Score Troponin: Troponin T < 0.010 ng/mL (0.00-0.029) 09/12/20 16:46
[2020-09-20] MEDS: FUROSEMIDE 40 MG TAB PO SCH (13:15)
[2020-09-20] MEDS: PRAVASTATIN 40 MG TAB PO SCH (21:37)
[2020-09-21] MEDS: IPRATROPIUM/ALBUTEROL SULFATE 3 ML AMPUL.NEB IH SCH ×2 (02:18→07:48)
[2020-09-21] MEDS: BUDESONIDE 0.5 MG/2 ML NEBU IH SCH (07:49)
[2020-09-21 09:00] LABS: Blood Urea Nitrogen 22 mg/dL (9-20); Calcium 8.1 mg/dL (8.4-10.2); Hemolysis Index 1
--- NOTE | 2020-09-21 09:03 | Progress Note ---
<ANDRES SCHAEFER - Last Filed: 09/21/20 09:01> Assessment and Plan Atrial fibrillation/flutter, persistent on Eliquis as an outpatient. on amiodarone and carvedilol. normal LVEF by echo this presentation. On his last office visit less than 2 months ago, his EKG was a sinus rhythm. Hx of CAD COPD exacerbation Possible pneumonia Hx of PAD - on plavix Recommendations: Continue current medical management of atrial flutter that persists. Otherwise, conservative cardiac management. Subjective Date of service: 09/21/20 Interval history: No interval cardiac changes. No distress noted. Atrial flutter with a well controlled ventricular rate on telemetry. Objective Vital Signs Temp Pulse Pulse Resp Resp Resp BP 09/21/20 03:24 98.6 F 65 18 130/60 09/21/20 02:18 72 18 09/20/20 22:32 98.5 F 65 18 139/59 09/20/20 22:00 19 19 09/20/20 21:37 71 143/65 09/20/20 21:34 98.3 F 71 20 143/65 09/20/20 20:40 19 L 69 H 09/20/20 16:20 98.3 F 68 24 142/64 09/20/20 13:44 72 19 09/20/20 12:56 98.2 F 71 24 124/54 09/20/20 10:12 135/65 Pulse Ox 09/21/20 03:24 94 09/21/20 02:18 09/20/20 22:32 94 09/20/20 22:00 94 09/20/20 21:37 09/20/20 21:34 94 09/20/20 20:40 95 09/20/20 16:20 94 09/20/20 13:44 09/20/20 12:56 95 09/20/20 10:12 - Physical Examination General: No Apparent Distress HEENT: Positive: PERRL Neck: Positive: trachea midline Cardiac: Positive: irregularly irregular Lungs: Positive: Decreased Breath Sounds Neuro: Positive: Grossly Intact Extremities: Absent: edema - Labs and Meds Comprehensive Metabolic Panel 09/21/20 Range/Units 07:34 Sodium 134 L (137-145) mmol/L Potassium 3.4 L (3.6-5.0) mmol/L Chloride 90.2 L (98-107) mmol/L Carbon Dioxide 37 H (22-30) mmol/L BUN 22 H (9-20) mg/dL Glucose 105 H (75-100) mg/dL Calcium 8.1 L (8.4-10.2) mg/dL <RODRIGO KEY - Last Filed: 09/27/20 09:26> Assessment and Plan - Patient Problems (1) COPD exacerbation Status: Acute (2) Atrial fibrillation Status: Acute Qualifiers: Atrial fibrillation type: longstanding persistent Qualified Code(s): I48.11 - Longstanding persistent atrial fibrillation (3) CAD (coronary artery disease) Status: Acute
[2020-09-21 09:12] LABS: BUN/Creatinine Ratio 44
[2020-09-21] MEDS: LOSARTAN 50 MG TAB PO SCH (09:53)
[2020-09-21] MEDS: ASCORBIC ACID 500 MG TAB PO SCH (09:54)
[2020-09-21] MEDS: ZINC SULFATE 220 MG CAP PO SCH (09:54)
[2020-09-21] MEDS: ASPIRIN 81 MG TAB CHEW PO SCH (09:54)
[2020-09-21] MEDS: FUROSEMIDE 40 MG TAB PO SCH (09:54)
[2020-09-21] MEDS: CLOPIDOGREL 75 MG TAB PO SCH (09:54)
[2020-09-21] MEDS: carvediloL 3.125 MG TAB PO SCH (09:54)
[2020-09-21 09:55] VITALS: BP 123/63
[2020-09-21] MEDS: AMIODARONE 200 MG TAB PO SCH (09:55)
[2020-09-21] MEDS: CETIRIZINE 10 MG TAB PO SCH (09:55)
[2020-09-21] MEDS: APIXABAN 2.5 MG TAB PO SCH (09:55)
[2020-09-21] MEDS: EZETIMIBE 10 MG TAB PO SCH (09:55)
[2020-09-21] MEDS: CHOLECALCIFEROL (VIT D3) 1000 UNIT (25 mcg) TAB PO SCH (09:55)
[2020-09-21] MEDS: LIDOCAINE 5% 1 EACH PATCH TD SCH (09:56)
[2020-09-21] MEDS ORDERED: POTASSIUM CHLORIDE ER 20 MEQ TAB PO NR (10:16)
--- NOTE | 2020-09-21 10:27 | Discharge Summary ---
Providers - Providers Date of Admission: 09/12/20 12:47 Date of discharge: 09/21/20 Attending physician: CLIVE YA 09/12/20 12:47 Consult to Physician [CONS] Routine Comment: Consulting Provider: NUBIA ENAMORADO Physician Instructions: Reason For Exam: respiratory failure 09/12/20 13:20 Consult to Cardiology [CONS] Routine Consulting Provider: RODRIGO KEY Reason For Exam: CHF 09/20/20 08:47 Physical Therapy Evaluation and Treat [CONS] Urgent Comment: Reason For Exam: to ambulate pt. Primary care physician: [employer] WORKER Hospitalization Condition: Serious Hospital course: Patient is an 85-year old M with chronic respiratory failure, severe COPD on home oxygen, atrial fibrillation on Eliquis who presents with worsening shortness of breath, cough, and wheezing. Chest x- ray reports findings of bilateral pulmonary opacities. -- Acute on chronic respiratory failure with hypoxemia Patient on 4 to 5 L oxygen at home Likely due to COPD exacerbation Pulmonary note reviewed Continue oxygen at 5 L upon discharge PT note reviewed Patient has 2 walkers at home Patient states that he has plenty of prednisone and he takes it on a regular basis He also did not want inhalers or nebulizer solutions as he states he has been off of them --Bilateral pneumonia , likely community-acquired Off antibiotic at this time He is afebrile CBC results reviewed --Tested negative for COVID-19 --Acute on chronic diastolic CHF: Ruled out Discussed with cardiology-CHF diagnosis has been ruled out No need for Lasix Echocardiogram results reviewed-EF greater than 55% -- Atrial fibrillation/flutter-new onset Rate controlled Continue Eliquis Cardiology note reviewed --Hemoptysis, -no active hemoptysis monitor H&H, --Hyperkalemia, -resolved Hypokalemia-likely secondary to IV diuretics Serum potassium 3.4 We will give 1 dose of potassium 40 mEq prior to patient's discharge Lasix discontinued per recommendation of cardiology --Peripheral arterial disease, patient on Plavix and statin Will discontinue aspirin as the patient is on Eliquis Daily clinical course: 09/13/20: Pending COVID-19 test, 2D echo showed EF 55 to 60%. Amiodarone has been started for his atrial flutter. Continue current care, follow clinically. Patient on 8 L nasal cannula, wean off as tolerated 09/14/20: Patient placed on high flow O2 today, Covid test is negative. Continue to treat for community-acquired pneumonia. Continue empiric steroid, IV antibiotics and nebulizer breathing treatment along with IV diuresis. Monitor ins and O's. Repeat chest x-ray tomorrow morning. 09/15/20: Patient complains of blood with cough. will monitor H&H, will repeat chest x-ray and sputum culture. If continues to have hemoptysis may have to hold anticoagulation. Patient remains on high flow O2, continue to follow clinically and wean off as tolerated 09/16/20: Denies any hemoptysis. Patient remains on 25 L 75% FiO2. Continue to wean off as tolerated. Pulmonary following. Continue nebulizer treatment, empiric antibiotics, IV steroid and gentle diuresis. 09/17/20: Patient remains on high flow O2, continue to wean off O2 as tolerated. Pulmonary following. Continue supportive care and scheduled nebulizer breathing treatment along with empiric antibiotics. 09/18/20: Patient remains on high flow O2. Patient family at bedside and I updated them in details. Patient wants to go home. Continue empiric steroids along with antibiotics and scheduled nebulizer with improvement. Wean off O2 as tolerated. 09/20-patient is alert and oriented and wants to go home. States he is on 5 L oxygen via nasal cannula at home. He denies any chest pain and states that his shortness of breath is at his baseline. Discussed with RN regarding 6-minute walk. However patient has not been out of bed and unsteady on his feet. We will request PT consult and get a 6-minute walk in a.m. and if stable and cleared by PT will discharge patient tomorrow 09/21 alert and oriented. Offers no complaints. Wants to go home. Pulmonary and cardiology notes reviewed. PT note reviewed. Patient states that he has 2 walkers. patient is medically stable for discharge Continue oxygen via nasal cannula at 5 L/min which is his home oxygen requirement. Outpatient follow-up with cardiology and pulmonary No refills on his home medications were prescribed as the patient states that he has enough of his home medications. Disposition: - TO HOME OR SELFCARE Final Discharge Diagnosis (Prints w/discharge instructions): COPD exacerbation with acute hypoxic respiratory failure. New onset atrial fibrillation/flutter Time spent for discharge: 38 min Core Measure Documentation - Palliative Care Palliative Care/ Comfort Measures: Not Applicable - Core Measures Any of the following diagnoses?: none Exam - Constitutional Vitals: Temp Pulse Resp BP Pulse Ox 98.6 F 71 18 123/63 94 09/21/20 03:24 09/21/20 09:54 09/21/20 03:24 09/21/20 09:54 09/21/20 03:24 General appearance: Present: no acute distress - EENT Eyes: Present: PERRL, EOM intact ENT: hearing intact, clear oral mucosa - Neck Neck: Present: supple, normal ROM. Absent: masses or JVD - Respiratory Respiratory effort: normal Respiratory: bilateral: CTA, diminished, negative: rales, rhonchi - Cardiovascular Rhythm: irregularly irregular Heart Sounds: Present: S1 & S2 - Extremities Extremities: No edema - Abdominal General gastrointestinal: Present: soft, non-tender Male genitourinary: Present: deferred - Rectal Rectal Exam: deferred - Integumentary Integumentary: Present: clear - Musculoskeletal Musculoskeletal: strength equal bilaterally - Psychiatric Psychiatric: appropriate mood/affect - Neurologic Neurologic: no focal deficits Plan Activity: advance as tolerated Weight Bearing Status: Weight Bear as Tolerated Diet: regular, low fat, low cholesterol, low salt Special Instructions: home oxygen via (Continue oxygen at 5 L via nasal cannula) Durable Medical Equipment Needed Upon Discharge: other (Patient has 2 walkers at home) Additional Instructions: Follow-up with pulmonary Dr. Ellis in 1 to 2 weeks Follow up with: PRIMARY MD JOSE [Primary Care Provider] - 3-5 Days RODRIGO KEY MD [Staff Physician] - 10 Days Prescriptions: Amiodarone [Cordarone 200 MG TAB] 200 mg PO BID #60 tablet carvediloL [Coreg] 3.125 mg PO BID #60 tablet Losartan [Cozaar] 50 mg PO QDAY #30 tablet Apixaban [Eliquis] 2.5 mg PO Q12HR #30 tablet Clopidogrel [Plavix] 75 mg PO DAILY #30 tablet
--- NOTE | 2020-09-21 12:52 | Progress Note ---
Assessment and Plan 85 y/o male with exacerbation of his ILD, most likely secondary to volume overload and COPD exacerbation. 09/21/20: No new recs for today. Please see recs from 09/20/20 09/20/20: patient very adamant about going home. Not sure how much movement he does at home but sats of >88% on his baseline of 5 liters is fine. Will need prolonged taper at discharge. Suggest the followin daily for 4 days, 40 daily for 4 days, 20 daily for 4 days, then 10 daily for 4 days then stop. he can follow up with Dr. Ellis with [facility] at discharge. Apparently he is not going to follow back up with T[facility]. 09/19/20: Same recs as yesterday. Continue to wean FiO2 for sats >88% 09/18/20: Suggest increasing lasix to 40 BID, at least for 1-2 days to achieve net negative state to see if this helps with oxygenation. If no improvement with increase in lasix, will have discussion with patient about other options (palliative care, hospice). per cards systolic function normal from 2 years ago at last office visit. 09/17/20: Increase steroids to 60q6 starting today. Strict I/O with goal of daily net negative state to keep the lungs as dry as possible. 09/14/20: Agree with BID dosing of lasix but I gave an additional 20 today on top of the 20 BID ordered by IMS. Please order strict i/o. If no improvement with increased diuretic therapy, tomorrow would increase steroids to 60q6. Guarded prognosis. need to discuss code status with patient. Will attempt to do later today. 1. WIll give a one time dose of IV lasix now and patient likely will need home dosing of lasix at discharge. I suspect he has pulmonary HTN from his ILD and should be kept as dry as possible or as dry as bp and renal function will allow. 2. Suggest obtaing 2 D echo to look for Pulm HTN as well as to make sure systolic function is still normal 3. VTE is on the differential for exacerbation of ILD, however don't feel CTA is needed at this time. If echo suggest rv strain could consider obtaining CTA 4. Would switch to prednisone 60 daily and taper as follows: 60 daily for 3 days, 40 daily for 3 days then 20 daily for 3 days then stop. 5. Not sure why patient has not followed up with Dr. Francis but is welcome to come back to the office post discharge 6. He will need a walk test prior to discharge to see what his new exertional oxygen requirement may be. Given age and underlying lung disease, prognosis is guarded. Subjective Date of service: 09/21/20 Interval history: No acute events. Stable on 5 liters. Objective Vital Signs - 12hr 09/21/20 09/21/20 09/21/20 02:18 03:24 07:49 Temperature 98.6 F Pulse Rate 65 Pulse Rate [ 72 70 Anterior Bilateral Throughout] Pulse Rate [ Apical] Pulse Rate [ Left Radial] Pulse Rate [ Right Radial] Respiratory 18 Rate Respiratory 18 18 Rate [Anterior Bilateral Throughout] Respiratory Rate [Chest] Blood Pressure 130/60 O2 Sat by Pulse 94 96 Oximetry 09/21/20 09/21/20 09/21/20 09:53 09:54 10:00 Temperature Pulse Rate 71 71 61 Pulse Rate [ Anterior Bilateral Throughout] Pulse Rate [ 61 Apical] Pulse Rate [ 61 Left Radial] Pulse Rate [ 61 Right Radial] Respiratory 19 Rate Respiratory Rate [Anterior Bilateral Throughout] Respiratory 19 Rate [Chest] Blood Pressure 127/63 123/63 O2 Sat by Pulse 94 Oximetry Constitutional: no acute distress Eyes: non-icteric ENT: oropharynx moist Neck: supple Effort: normal Ascultation: Bilateral: diminished breath sounds Cardiovascular: regular rate and rhythm Gastrointestinal: normoactive bowel sounds, non-tender, other (obese) Neurologic: non-focal exam Psychiatric: mood appropriate CBC and BMP: 09/18/20 06:07 09/21/20 07:34 ABG, PT/INR, D-dimer: ABG ABG pH 7.448 (7.320-7.450) 09/12/20 12:15 POC ABG pCO2 27.3 mmHg (32.0-48.0) L 09/12/20 12:15 POC ABG pO2 79.9 mmHg (83-108) L 09/12/20 12:15 POC ABG HCO3 18.5 09/12/20 12:15 ABG O2 Saturation 96.3 (0-100) 09/12/20 12:15 PT/INR, D-dimer PT 16.2 Sec. (12.2-14.9) H 09/12/20 12:47 INR 1.25 (0.87-1.13) H 09/12/20 12:47 D-Dimer 403.72 ng/mlDDU (0-234) H 09/12/20 12:47 Abnormal lab findings: Abnormal Labs 09/12/20 09/12/20 09/12/20 11:20 11:20 11:20 WBC RBC Hgb Hct 35.4 L MCHC RDW 15.9 H Lymph % (Auto) 7.9 L Lymph # (Auto) 0.8 L Seg Neutrophils % 88.4 H Seg Neutrophils # 8.6 H PT 15.4 H INR 1.17 H D-Dimer POC ABG pCO2 POC ABG pO2 ABG Sodium ABG Chloride ABG Glucose Sodium 130 L Potassium Chloride 93.5 L Carbon Dioxide BUN 5 L Creatinine 0.6 L Glucose 118 H Calcium Magnesium Lactate Dehydrogenase C-Reactive Protein NT-Pro-B Natriuret Pep 2014 H Albumin 3.6 L Arterial Blood Glucose Arterial Blood Ionized Calcium 09/12/20 09/12/20 09/12/20 12:15 12:42 12:42 WBC RBC Hgb Hct 35.4 L MCHC RDW 15.7 H Lymph % (Auto) Lymph # (Auto) Seg Neutrophils % Seg Neutrophils # PT INR D-Dimer POC ABG pCO2 27.3 L POC ABG pO2 79.9 L ABG Sodium 129.0 L ABG Chloride 97.0 L ABG Glucose 153 H Sodium Potassium Chloride Carbon Dioxide BUN Creatinine 0.6 L Glucose Calcium Magnesium Lactate Dehydrogenase C-Reactive Protein NT-Pro-B Natriuret Pep Albumin Arterial Blood Glucose 153 H Arterial Blood Ionized Calcium 4.5 L 09/12/20 09/12/20 09/12/20 12:47 13:40 13:40 WBC RBC Hgb Hct MCHC RDW Lymph % (Auto) Lymph # (Auto) Seg Neutrophils % Seg Neutrophils # PT 16.2 H INR 1.25 H D-Dimer 403.72 H POC ABG pCO2 POC ABG pO2 ABG Sodium ABG Chloride ABG Glucose Sodium Potassium Chloride Carbon Dioxide BUN Creatinine Glucose 103 H Calcium Magnesium 2.50 H Lactate Dehydrogenase 273 H C-Reactive Protein 5.40 H NT-Pro-B Natriuret Pep Albumin Arterial Blood Glucose Arterial Blood Ionized Calcium 09/13/20 09/13/20 09/14/20 07:43 07:43 05:33 WBC 11.5 H RBC 3.59 L Hgb 11.2 L Hct 31.4 L MCHC 36 H RDW 16.0 H 16.2 H Lymph % (Auto) 12.4 L Lymph # (Auto) 0.8 L Seg Neutrophils % 85.6 H Seg Neutrophils # PT INR D-Dimer POC ABG pCO2 POC ABG pO2 ABG Sodium ABG Chloride ABG Glucose Sodium 135 L Potassium 5.1 H D Chloride Carbon Dioxide BUN Creatinine 0.6 L Glucose 144 H Calcium Magnesium Lactate Dehydrogenase C-Reactive Protein NT-Pro-B Natriuret Pep Albumin 3.4 L Arterial Blood Glucose Arterial Blood Ionized Calcium 09/14/20 09/15/20 09/16/20 10:04 05:21 05:24 WBC RBC Hgb 11.3 L Hct 33.0 L MCHC RDW 16.1 H Lymph % (Auto) 9.2 L Lymph # (Auto) 0.7 L Seg Neutrophils % 85.4 H Seg Neutrophils # PT INR D-Dimer POC ABG pCO2 POC ABG pO2 ABG Sodium ABG Chloride ABG Glucose Sodium 135 L Potassium Chloride 97.5 L Carbon Dioxide BUN Creatinine 0.6 L Glucose 213 H 149 H Calcium 8.2 L 8.0 L Magnesium Lactate Dehydrogenase C-Reactive Protein NT-Pro-B Natriuret Pep Albumin Arterial Blood Glucose Arterial Blood Ionized Calcium 09/18/20 09/18/20 09/19/20 06:07 06:07 07:43 WBC RBC Hgb Hct 34.7 L MCHC 35 H RDW 16.1 H Lymph % (Auto) Lymph # (Auto) Seg Neutrophils % Seg Neutrophils # PT INR D-Dimer POC ABG pCO2 POC ABG pO2 ABG Sodium ABG Chloride ABG Glucose Sodium Potassium 3.3 L Chloride 94.5 L Carbon Dioxide 35 H D BUN 26 H Creatinine 0.6 L 0.6 L Glucose 173 H Calcium 8.0 L Magnesium Lactate Dehydrogenase C-Reactive Protein NT-Pro-B Natriuret Pep Albumin Arterial Blood Glucose Arterial Blood Ionized Calcium 09/21/20 07:34 WBC RBC Hgb Hct MCHC RDW Lymph % (Auto) Lymph # (Auto) Seg Neutrophils % Seg Neutrophils # PT INR D-Dimer POC ABG pCO2 POC ABG pO2 ABG Sodium ABG Chloride ABG Glucose Sodium 134 L Potassium 3.4 L Chloride 90.2 L Carbon Dioxide 37 H BUN 22 H Creatinine 0.5 L Glucose 105 H Calcium 8.1 L Magnesium Lactate Dehydrogenase C-Reactive Protein NT-Pro-B Natriuret Pep Albumin Arterial Blood Glucose Arterial Blood Ionized Calcium
== END 2020-09-21 12:52 | disposition home health service (06) | DRG 193 ==
LOC: ED 09:56 → IMCU 12:47 → 3A 20:03
PROVIDERS: ADMIT Internal Medicine; ATTEND Internal Medicine
PROC: 4A033R1 Measurement of Arterial Saturation, Peripheral, Percutaneous Approach (ICD-10-PCS; principal; 2020-09-12)
PROC: 5A09357 Assistance with Respiratory Ventilation, Less than 24 Consecutive Hours, Continuous Positive Airway Pressure (ICD-10-PCS; 2020-09-12)
DX: J18.9 Pneumonia, unspecified organism (principal); J96.21 Acute and chronic respiratory failure with hypoxia; J44.1 Chronic obstructive pulmonary disease with (acute) exacerbation; R04.2 Hemoptysis; I48.92 Unspecified atrial flutter; I48.19 Other persistent atrial fibrillation; J44.0 Chronic obstructive pulmonary disease with (acute) lower respiratory infection; Z20.822 Contact with and (suspected) exposure to COVID-19; E87.5 Hyperkalemia; Z79.899 Other long term (current) drug therapy; E87.6 Hypokalemia; K21.9 Gastro-esophageal reflux disease without esophagitis; E66.9 Obesity, unspecified; I10 Essential (primary) hypertension; I25.10 Atherosclerotic heart disease of native coronary artery without angina pectoris; I73.9 Peripheral vascular disease, unspecified; T50.2X5A Adverse effect of carbonic-anhydrase inhibitors, benzothiadiazides and other diuretics, initial encounter; Y92.89 Other specified places as the place of occurrence of the external cause; I25.2 Old myocardial infarction; Z79.01 Long term (current) use of anticoagulants; Z82.49 Family history of ischemic heart disease and other diseases of the circulatory system; Z83.3 Family history of diabetes mellitus; Z68.20 Body mass index [BMI] 20.0-20.9, adult
CPT/HCPCS: 36415; 71045; 80048; 80053; 80202; 82140; 82565; 82728; 82805; 82947; 83615; 83735; 83880; 84145; 84439; 84443; 84484; 85025; 85027; 85379; 85610; 85730; 86140; 87040; 93005; 93306; 94640; 94644; 96365; 96366; 96368; 96375; G0378; A9270-GY; J0456; J0692; J1940; J2920; J2930; J3370; J3475; J7050; U0003

== ENCOUNTER 2021-01-02 10:35 | Inpatient (IN) | payer MEDICARE ==
[2021-01-02] MEDS ORDERED: SODIUM CHLORIDE 0.9% 1000 ML IV SOLN IV ONE (11:11)
--- NOTE | 2021-01-02 11:18 | Emergency Department Report ---
ED General Adult HPI - General Chief complaint: Weakness Stated complaint: HYPOTENSION/DISCHARGED FROM [facility] Time Seen by Provider: 01/02/21 10:41 Source: patient Mode of arrival: Stretcher Limitations: Physical Limitation - History of Present Illness Initial comments: 85-year-old male with a past medical history of chronic respiratory therapy, severe COPD on home oxygen, and atrial fibrillation (on Eliquis as per med rec) presents to the hospital with asymptomatic hypotension. Visiting nurse came to home and found patient be hypotensive therefore he sent to the hospital for evaluation. Patient apparently was discharged from [facility] 2 days ago (as per nurse that received ems report). Patient states he has had difficulty walking since he was discharged. However, he denies headache, chest pain, worsening shortness of breath, abdominal pain, nausea, vomiting, or fever. Chronic dry cough reported. Patient is initial blood pressure in the ED 79/37. Code sepsis called As per medical record patient was admitted here in August. CHF ruled out with an EF of greater than 55% he had. He had bilateral pneumonia at that time was Covid negative. As noted patient had physical therapy evaluation and had 2 walkers at home. pt states year is 2001 - Related Data Home Medications Medication Instructions Recorded Confirmed Last Taken Budesonide [Pulmicort Respules] 0.5 mg IH BID 10/26/13 09/13/20 Unknown Simvastatin (Nf) [Zocor TAB] 40 mg PO ONCE 10/26/13 09/13/20 10/28/16 Fluticasone [Flonase] 1 spray NS QDAY 10/28/16 09/13/20 10/28/16 Previous Rx's Medication Instructions Recorded Last Taken Type Amiodarone [Cordarone 200 MG TAB] 200 mg PO BID #60 tablet 11/02/16 Unknown Rx Loratadine (Nf) [Claritin (Nf)] 10 mg PO QDAY #10 tablet 11/02/16 Unknown Rx Prednisone [predniSONE 10 mg 10 mg PO .TAPER #1 tab.ds.pk 11/02/16 Unknown Rx (6-Day Pack, 21 Tabs)] Acetaminophen [Tylenol Arthritis] 650 mg PO Q6HR PRN #30 tablet.er 12/17/17 Unknown Rx Albuterol Sulfate [Proair 90 mcg IH Q4HR PRN #2 aer.pow.ba 12/17/17 Unknown Rx Respiclick] Ipratropium [place] [Atrovent Hfa] 12.9 gm IH Q4HR #2 hfa.aer.ad 12/17/17 Unknown Rx predniSONE [Deltasone] 40 mg PO QDAY #8 tab 12/17/17 Unknown Rx Amiodarone [Cordarone 200 MG TAB] 200 mg PO BID #60 tablet 09/21/20 Unknown Rx Apixaban [Eliquis] 2.5 mg PO Q12HR #30 tablet 09/21/20 Unknown Rx Ascorbic Acid [Vitamin C] 500 mg PO BID tablet 09/21/20 Unknown Rx Cholecalciferol Vit D3 [Vitamin D3 1,000 unit PO QDAY tablet 09/21/20 Unknown Rx 1,000 UNIT TAB] Clopidogrel [Plavix] 75 mg PO DAILY #30 tablet 09/21/20 Unknown Rx Losartan [Cozaar] 50 mg PO QDAY #30 tablet 09/21/20 Unknown Rx Zinc Sulfate 220 mg PO BID capsule 09/21/20 Unknown Rx carvediloL [Coreg] 3.125 mg PO BID #60 tablet 09/21/20 Unknown Rx Allergies Allergy/AdvReac Type Severity Reaction Status Date / Time No Known Allergies Allergy Verified 10/26/13 18:06 ED Review of Systems ROS: Stated complaint: HYPOTENSION/DISCHARGED FROM [facility] Other details as noted in HPI ED Past Medical Hx - Past Medical History Hx Hypertension: Yes Hx Heart Attack/AMI: Yes Hx COPD: Yes - Surgical History Hx Coronary Stent: Yes (x4) Additional Surgical History: right hernia repair x2, left lower vein stripping leg, hemorrhoidectomy x2 - Social History Smoking Status: Never Smoker - Medications Home Medications: Home Medications Medication Instructions Recorded Confirmed Last Taken Type Budesonide [Pulmicort Respules] 0.5 mg IH BID 10/26/13 09/13/20 Unknown History Simvastatin (Nf) [Zocor TAB] 40 mg PO ONCE 10/26/13 09/13/20 10/28/16 History Fluticasone [Flonase] 1 spray NS QDAY 10/28/16 09/13/20 10/28/16 History Amiodarone [Cordarone 200 MG TAB] 200 mg PO BID #60 tablet 11/02/16 09/13/20 Unknown Rx Loratadine (Nf) [Claritin (Nf)] 10 mg PO QDAY #10 tablet 11/02/16 09/13/20 Unknown Rx Prednisone [predniSONE 10 mg 10 mg PO .TAPER #1 tab.ds.pk 11/02/16 09/13/20 Unknown Rx (6-Day Pack, 21 Tabs)] Acetaminophen [Tylenol Arthritis] 650 mg PO Q6HR PRN #30 tablet.er 12/17/17 09/13/20 Unknown Rx Albuterol Sulfate [Proair 90 mcg IH Q4HR PRN #2 aer.pow.ba 12/17/17 09/13/20 Unknown Rx Respiclick] Ipratropium [place] [Atrovent Hfa] 12.9 gm IH Q4HR #2 hfa.aer.ad 12/17/17 09/13/20 Unknown Rx predniSONE [Deltasone] 40 mg PO QDAY #8 tab 12/17/17 09/13/20 Unknown Rx Amiodarone [Cordarone 200 MG TAB] 200 mg PO BID #60 tablet 09/21/20 Unknown Rx Apixaban [Eliquis] 2.5 mg PO Q12HR #30 tablet 09/21/20 Unknown Rx Ascorbic Acid [Vitamin C] 500 mg PO BID tablet 09/21/20 Unknown Rx Cholecalciferol Vit D3 [Vitamin D3 1,000 unit PO QDAY tablet 09/21/20 Unknown Rx 1,000 UNIT TAB] Clopidogrel [Plavix] 75 mg PO DAILY #30 tablet 09/21/20 Unknown Rx Losartan [Cozaar] 50 mg PO QDAY #30 tablet 09/21/20 Unknown Rx Zinc Sulfate 220 mg PO BID capsule 09/21/20 Unknown Rx carvediloL [Coreg] 3.125 mg PO BID #60 tablet 09/21/20 Unknown Rx ED Physical Exam - General Limitations: Physical Limitation - Other Other exam information: General: No acute distress Head: Atraumatic Eyes: normal appearance ENT: Moist mucous membranes Neck: Normal appearance, no midline tenderness Chest: Clear to auscultation bilaterally, mild tachypnea, no accessory muscle use CV: Abdomen: Soft, normal bowel sounds, nontender, nondistended, no rebound or guarding Back: Normal inspection Extremity: Normal inspection, full range of motion, lower extremity edema Neuro: Alert O x 2 (not to year), no facial asymmetry, speech clear, no gross motor sensory deficit Psych: Appropriate behavior Skin: Stage I ulcer to buttock area without skin breakdown ED Course Vital Signs 01/02/21 01/02/21 01/02/21 10:43 10:45 11:01 Temperature Pulse Rate 90 99 H 75 Pulse Rate [ Bilateral] Respiratory 29 H 32 H 29 H Rate Respiratory Rate [Bilateral ] Blood Pressure 79/37 71/34 O2 Sat by Pulse 96 99 89 Oximetry 01/02/21 01/02/21 01/02/21 11:15 11:16 11:31 Temperature 97.9 F Pulse Rate 80 86 82 Pulse Rate [ Bilateral] Respiratory 30 H 22 34 H Rate Respiratory Rate [Bilateral ] Blood Pressure 72/31 72/31 67/31 O2 Sat by Pulse 96 92 Oximetry 01/02/21 01/02/21 01/02/21 11:45 11:47 11:59 Temperature Pulse Rate 74 Pulse Rate [ 79 Bilateral] Respiratory 20 Rate Respiratory 20 Rate [Bilateral ] Blood Pressure 74/32 O2 Sat by Pulse 96 97 Oximetry 01/02/21 01/02/21 01/02/21 12:01 12:15 12:45 Temperature Pulse Rate 75 80 Pulse Rate [ Bilateral] Respiratory 19 31 H 37 H Rate Respiratory Rate [Bilateral ] Blood Pressure 86/38 89/36 86/40 O2 Sat by Pulse 97 97 90 Oximetry 01/02/21 01/02/21 01/02/21 13:01 13:15 13:31 Temperature Pulse Rate 90 Pulse Rate [ Bilateral] Respiratory 19 17 30 H Rate Respiratory Rate [Bilateral ] Blood Pressure 91/36 100/40 93/39 O2 Sat by Pulse 99 94 87 Oximetry 01/02/21 13:45 Temperature Pulse Rate 99 H Pulse Rate [ Bilateral] Respiratory 34 H Rate Respiratory Rate [Bilateral ] Blood Pressure 99/40 O2 Sat by Pulse 76 L Oximetry - Reevaluation(s) Reevaluation #1: 01/02/21 14:02 BP improved with IV fluids. Patient satting 90 to 93% on 4L nasal cannula patient without current respiratory distress ED Medical Decision Making - Lab Data Result diagrams: 01/02/21 12:12 01/02/21 12:12 Lab Results 01/02/21 01/02/21 01/02/21 Range/Units 12:12 12:12 12:12 WBC 10.4 (4.5-11.0) K/mm3 RBC 3.75 (3.65-5.03) M/mm3 Hgb 10.1 L (11.8-15.2) gm/dl Hct 31.2 L (35.5-45.6) % MCV 83 L (84-94) fl MCH 27 L (28-32) pg MCHC 33 (32-34) % RDW 18.6 H (13.2-15.2) % Plt Count 406 (140-440) K/mm3 Lymph % (Auto) 16.8 (13.4-35.0) % [place] % (Auto) 10.6 H (0.0-7.3) % Eos % (Auto) 2.6 (0.0-4.3) % Baso % (Auto) 0.6 (0.0-1.8) % Lymph # (Auto) 1.8 (1.2-5.4) K/mm3 [place] # (Auto) 1.1 H (0.0-0.8) K/mm3 Eos # (Auto) 0.3 (0.0-0.4) K/mm3 Baso # (Auto) 0.1 (0.0-0.1) K/mm3 Seg Neutrophils % 69.4 (40.0-70.0) % Seg Neutrophils # 7.2 (1.8-7.7) K/mm3 PT (12.2-14.9) Sec. INR (0.87-1.13) APTT (24.2-36.6) Sec. Sodium 131 L (137-145) mmol/L Potassium 3.3 L (3.6-5.0) mmol/L Chloride 91.3 L (98-107) mmol/L Carbon Dioxide 27 (22-30) mmol/L Anion Gap 16 mmol/L BUN 12 (9-20) mg/dL Creatinine 0.7 L (0.8-1.3) mg/dL Estimated GFR > 60 ml/min BUN/Creatinine Ratio 17 % Glucose 84 (75-100) mg/dL Lactic Acid 2.20 H* (0.7-2.0) mmol/L Calcium 8.7 (8.4-10.2) mg/dL Total Bilirubin 0.40 (0.1-1.2) mg/dL AST 14 (5-40) units/L ALT 9 (7-56) units/L Alkaline Phosphatase 115 (35-129) units/L Troponin T (0.00-0.029) ng/mL Total Protein 7.0 (6.3-8.2) g/dL Albumin 3.4 L (3.9-5) g/dL Albumin/Globulin Ratio 0.9 % 01/02/21 01/02/21 Range/Units 12:12 12:12 WBC (4.5-11.0) K/mm3 RBC (3.65-5.03) M/mm3 Hgb (11.8-15.2) gm/dl Hct (35.5-45.6) % MCV (84-94) fl MCH (28-32) pg MCHC (32-34) % RDW (13.2-15.2) % Plt Count (140-440) K/mm3 Lymph % (Auto) (13.4-35.0) % [place] % (Auto) (0.0-7.3) % Eos % (Auto) (0.0-4.3) % Baso % (Auto) (0.0-1.8) % Lymph # (Auto) (1.2-5.4) K/mm3 [place] # (Auto) (0.0-0.8) K/mm3 Eos # (Auto) (0.0-0.4) K/mm3 Baso # (Auto) (0.0-0.1) K/mm3 Seg Neutrophils % (40.0-70.0) % Seg Neutrophils # (1.8-7.7) K/mm3 PT 17.6 H (12.2-14.9) Sec. INR 1.31 H (0.87-1.13) APTT 38.4 H (24.2-36.6) Sec. Sodium (137-145) mmol/L Potassium (3.6-5.0) mmol/L Chloride (98-107) mmol/L Carbon Dioxide (22-30) mmol/L Anion Gap mmol/L BUN (9-20) mg/dL Creatinine (0.8-1.3) mg/dL Estimated GFR ml/min BUN/Creatinine Ratio % Glucose (75-100) mg/dL Lactic Acid (0.7-2.0) mmol/L Calcium (8.4-10.2) mg/dL Total Bilirubin (0.1-1.2) mg/dL AST (5-40) units/L ALT (7-56) units/L Alkaline Phosphatase (35-129) units/L Troponin T 0.017 (0.00-0.029) ng/mL Total Protein (6.3-8.2) g/dL Albumin (3.9-5) g/dL Albumin/Globulin Ratio % - EKG Data -: EKG Interpreted by Me (Possible atrial fibrillation, artifact on EKG) EKG shows normal: ST-T waves (No STEMI) - EKG Data When compared to previous EKG there are: no significant change - Radiology Data Radiology results: report reviewed CHEST 1 VIEW 01/02/2021 10:47 AM INDICATION / CLINICAL INFORMATION: hypotension, sob. COMPARISON: 10/15/2020 FINDINGS: SUPPORT DEVICES: None. HEART / MEDIASTINUM: No significant abnormality. LUNGS / PLEURA: Previously seen interstitial opacity remains with interval improvement. Changes remain Spot more localized at the left mid zone. No pneumothorax. ADDITIONAL FINDINGS: No significant additional findings. IMPRESSION: Interval improvement in previously seen interstitial disease with slightly more localized change at the left mid zone. - Medical Decision Making 85-year-old male presents to the hospital with persistent infiltrates, acute on chronic respiratory failure, and hypotension. BP responding to 30 mL/kg bolus of IV fluids. Patient meets sepsis criteria. Patient treated with bronchodi lators, supplemental oxygen, IV fluid bolus, antibiotics, and steroids. Patient will be admitted to the hospital service for further treatment. UA results pending at disposition. Patient was recently discharged from [facility]. Details of recent admission unknown at this time. Covid test ordered Critical Care Time: Yes Critical care time in (mins) excluding proc time.: 35 Critical care attestation.: If time is entered above; I have spent that time in minutes in the direct care of this critically ill patient, excluding procedure time. ED Disposition Clinical Impression: COPD exacerbation, Atrial fibrillation, Pneumonia, Sepsis, Oxygen dependent, Hypokalemia Disposition: ADMITTED INPATIENT Is pt being admited?: Yes Condition: Stable Instructions: Chronic Bronchitis (ED), Bacterial Pneumonia (ED) Time of Disposition: 14:18 (dr carr)
[2021-01-02] MEDS ORDERED: IPRATROPIUM/ALBUTEROL SULFATE 3 ML AMPUL.NEB IH ONE ×2 (11:33→13:37)
--- NOTE | 2021-01-02 12:00 | XRay Report ---
CHEST 1 VIEW 01/02/2021 10:47 AM INDICATION / CLINICAL INFORMATION: hypotension, sob. COMPARISON: 10/15/2020 FINDINGS: SUPPORT DEVICES: None. HEART / MEDIASTINUM: No significant abnormality. LUNGS / PLEURA: Previously seen interstitial opacity remains with interval improvement. Changes remai n Spot more localized at the left mid zone. No pneumothorax. ADDITIONAL FINDINGS: No significant additional findings. IMPRESSION: Interval improvement in previously seen interstitial disease with slightly more localized change at the left mid zone. Signer Name: Ramin Michael MD Signed: 01/02/2021 11:55 AM Workstation Name: [id number]
[2021-01-02] MEDS ORDERED: methylPREDNISolone Sod Succinate 125 MG/2 ML INJ IV ONE (12:04)
[2021-01-02] MEDS ORDERED: CEFEPIME/NS 2 GM/100 ML 2 GM/100 ML BAG IV ONE (12:36)
[2021-01-02 12:38] LABS: Basophils # (Auto) 0.1 K/mm3 (0.0-0.1); Basophils % (Auto) 0.6 % (0.0-1.8); Eosinophils # (Auto) 0.3 K/mm3 (0.0-0.4); Eosinophils % (Auto) 2.6 % (0.0-4.3); Hematocrit 31.2 % (35.5-45.6); Hemoglobin 10.1 gm/dl (11.8-15.2); Lymphocytes # (Auto) 1.8 K/mm3 (1.2-5.4); Lymphocytes % (Auto) 16.8 % (13.4-35.0); Mean Corpuscular HGB Conc 33 % (32-34); Mean Corpuscular Volume 83 fl (84-94); Monocytes # (Auto) 1.1 K/mm3 (0.0-0.8); Monocytes % (Auto) 10.6 % (0.0-7.3); Platelet Count 406 K/mm3 (140-440); Red Blood Count 3.75 M/mm3 (3.65-5.03); Red Cell Distribution Width 18.6 % (13.2-15.2)
[2021-01-02 12:51] LABS: INR 1.31 (0.87-1.13)
[2021-01-02 12:52] LABS: Partial Thromboplastin Time 38.4 Sec. (24.2-36.6)
[2021-01-02 13:00] LABS: Alanine Aminotransferase 9 units/L (7-56); Albumin 3.4 g/dL (3.9-5); Blood Urea Nitrogen 12 mg/dL (9-20); Calcium 8.7 mg/dL (8.4-10.2); Hemolysis Index 0
[2021-01-02] MEDS ORDERED: VANCOMYCIN PHARMACY TO DOSE IV SCH (13:00)
[2021-01-02 13:09] LABS: BUN/Creatinine Ratio 17
[2021-01-02] MEDS ORDERED: POTASSIUM CHLORIDE ER 20 MEQ TAB PO ONE (13:12)
[2021-01-02] MEDS ORDERED: VANCOMYCIN 1,500 MG in SODIUM CHLORIDE 0.9% 500 ML 500 ML IV ONE (13:36)
[2021-01-02] MEDS ORDERED: methylPREDNISolone Sod Succinate 125 MG/2 ML INJ ONE (14:21)
[2021-01-02 14:42] LABS: Bilirubin,Urine NEG (Negative); Blood,Urine NEG (Negative); Color,Urine Straw (Yellow); Protein,Urine <15 mg/dL mg/dL (Negative); Urobilinogen,Urine < 2.0 mg/dL (<2.0); WBC,Urine < 1.0 /HPF (0.0-6.0)
--- NOTE | 2021-01-02 15:44 | History and Physical Report ---
History of Present Illness Chief complaint: My blood pressure is low History of present illness: 85 YO Male with COPD, Chronic Respiratory Failure on Home Oxygen, Atrial Fib on therapeutic anticoagulation with Eliquis, HTN, SD, CAD S/P Stent Placement presents to ED for evaluation. Patient reported "my blood pressure low". Patient states that he has experienced generalized weakness, decreased exercise tolerance over the past 2 days since his discharge from [facility]. Patient was seen and evaluated by his home care nurse and was found to have a systolic blood pressure in the 70s. EMS was notified and upon arrival the patient was found to be in distress and subsequent transported to [facility] for fur ther care and evaluation of the aforementioned symptoms. The patient was seen and evaluated in the emergency department. All lab and imaging studies reviewed. The patient was found to be hypotensive with a systolic blood pressure in the 70s. Patient found to have clinical findings consistent with sepsis, acidosis. Patient initiated on sepsis protocol and treated with IV fluid resuscitation therapy as well as empiric IV antibiotic therapy. Patient admitted to medical floor and continued on sepsis protocol. Patient denies fever, chills, chest pain, palpitation, productive cough, skin rash, recent ill contact, or known exposure to COVID-19. Prior admission on 12/01/2016 reviewed. All medication listed at time of admission has been reconciled. Advanced care planning conducted in ED. Past History Past Medical History: acute SD, atrial fib, CAD, hypertension, other (See HPI) Past Surgical History: Other (Cardiac stent placement) Social history: . denies: smoking, alcohol abuse Family history: hypertension Medications and Allergies Allergies Allergy/AdvReac Type Severity Reaction Status Date / Time No Known Allergies Allergy Verified 10/26/13 18:06 Home Medications Medication Instructions Recorded Confirmed Last Taken Type Budesonide [Pulmicort Respules] 0.5 mg IH BID 10/26/13 09/13/20 Unknown History Simvastatin (Nf) [Zocor TAB] 40 mg PO ONCE 10/26/13 09/13/20 10/28/16 History Fluticasone [Flonase] 1 spray NS QDAY 10/28/16 09/13/20 10/28/16 History Amiodarone [Cordarone 200 MG TAB] 200 mg PO BID #60 tablet 11/02/16 09/13/20 Unknown Rx Loratadine (Nf) [Claritin (Nf)] 10 mg PO QDAY #10 tablet 11/02/16 09/13/20 Unknown Rx Prednisone [predniSONE 10 mg 10 mg PO .TAPER #1 tab.ds.pk 11/02/16 09/13/20 Unknown Rx (6-Day Pack, 21 Tabs)] Acetaminophen [Tylenol Arthritis] 650 mg PO Q6HR PRN #30 tablet.er 12/17/17 09/13/20 Unknown Rx Albuterol Sulfate [Proair 90 mcg IH Q4HR PRN #2 aer.pow.ba 12/17/17 09/13/20 Unknown Rx Respiclick] Ipratropium [place] [Atrovent Hfa] 12.9 gm IH Q4HR #2 hfa.aer.ad 12/17/17 09/13/20 Unknown Rx predniSONE [Deltasone] 40 mg PO QDAY #8 tab 12/17/17 09/13/20 Unknown Rx Amiodarone [Cordarone 200 MG TAB] 200 mg PO BID #60 tablet 09/21/20 Unknown Rx Apixaban [Eliquis] 2.5 mg PO Q12HR #30 tablet 09/21/20 Unknown Rx Ascorbic Acid [Vitamin C] 500 mg PO BID tablet 09/21/20 Unknown Rx Cholecalciferol Vit D3 [Vitamin D3 1,000 unit PO QDAY tablet 09/21/20 Unknown Rx 1,000 UNIT TAB] Clopidogrel [Plavix] 75 mg PO DAILY #30 tablet 09/21/20 Unknown Rx Losartan [Cozaar] 50 mg PO QDAY #30 tablet 09/21/20 Unknown Rx Zinc Sulfate 220 mg PO BID capsule 09/21/20 Unknown Rx carvediloL [Coreg] 3.125 mg PO BID #60 tablet 09/21/20 Unknown Rx Active Meds: Active Medications Sodium Chloride (Nacl 0.9% 1000 Ml) 1,000 mls @ 150 mls/hr IV DIRECT ANJU Vancomycin HCl 1,500 mg/ (Sodium Chloride) 530 mls @ 265 mls/hr IV Q24H ANJU Review of Systems Constitutional: weakness, no weight loss, no weight gain, no fever Ears, nose, mouth and throat: no ear pain, no ear discharge, no decreased hearing, no nose pain, no nasal discharge Cardiovascular: decreased exercise tolerance, no chest pain, no orthopnea, no palpitations, no edema, no syncope Respiratory: no cough, no excessive sputum Gastrointestinal: no nausea, no vomiting, no diarrhea, no constipation, no BRBPR, no melena, no loss of appetite Genitourinary Male: no hematuria, no flank pain, no discharge, no urinary frequency, no urinary hesitancy Rectal: no pain, no incontinence, no bleeding Musculoskeletal: no neck stiffness, no neck pain, no shooting arm pain, no arm numbness/tingling, no low back pain, no shooting leg pain Integumentary: no rash, no pruritis, no redness, no sores, no wounds, no jaundice Neurological: no head injury, no transient paralysis, no paralysis, no parathesias, no tingling, no seizures, no syncope Psychiatric: no anxiety, no change in sleep habits, no sleep disturbances, no insomnia, no hypersomnia, no change in appetite, no change in libido, no suicidal ideation Endocrine: no cold intolerance, no polyphagia, no polydipsia, no polyuria, no excessive sweating Hematologic/Lymphatic: no easy bruising, no easy bleeding Allergic/Immunologic: no allergic rhinitis, no wheezing Exam - Constitutional Vitals: Temp Pulse Resp BP Pulse Ox 97.9 F 88 20 93/39 89 01/02/21 11:16 01/02/21 14:32 01/02/21 14:32 01/02/21 14:31 01/02/21 14:31 General appearance: Present: mild distress - EENT Eyes: Present: PERRL ENT: hearing intact, clear oral mucosa - Neck Neck: Present: supple, normal ROM - Respiratory Respiratory effort: normal Respiratory: bilateral: CTA - Cardiovascular Heart Sounds: Present: S1 & S2. Absent: rub, click - Extremities Extremities: pulses symmetrical, No edema Peripheral Pulses: abnormal (Capillary refill greater than 3.5 seconds) - Abdominal General gastrointestinal: Present: soft, non-tender, non-distended, normal bowel sounds Male genitourinary: Present: normal - Integumentary Integumentary: Present: clear, warm, dry - Musculoskeletal Musculoskeletal: gait normal, strength equal bilaterally - Psychiatric Psychiatric: appropriate mood/affect, intact judgment & insight - Neurologic Neurologic: CNII-XII intact, moves all extremities HEART Score - HEART Score Troponin: Troponin T 0.017 ng/mL (0.00-0.029) 01/02/21 12:12 Results - Labs CBC & Chem 7: 01/02/21 12:12 01/02/21 12:12 Labs: Abnormal lab results 01/02/21 01/02/21 01/02/21 Range/Units 12:12 12:12 12:12 Hgb 10.1 L (11.8-15.2) gm/dl Hct 31.2 L (35.5-45.6) % MCV 83 L (84-94) fl MCH 27 L (28-32) pg RDW 18.6 H (13.2-15.2) % [place] % (Auto) 10.6 H (0.0-7.3) % [place] # (Auto) 1.1 H (0.0-0.8) K/mm3 PT (12.2-14.9) Sec. INR (0.87-1.13) APTT (24.2-36.6) Sec. Sodium 131 L (137-145) mmol/L Potassium 3.3 L (3.6-5.0) mmol/L Chloride 91.3 L (98-107) mmol/L Creatinine 0.7 L (0.8-1.3) mg/dL Lactic Acid 2.20 H* (0.7-2.0) mmol/L Albumin 3.4 L (3.9-5) g/dL 01/02/21 Range/Units 12:12 Hgb (11.8-15.2) gm/dl Hct (35.5-45.6) % MCV (84-94) fl MCH (28-32) pg RDW (13.2-15.2) % [place] % (Auto) (0.0-7.3) % [place] # (Auto) (0.0-0.8) K/mm3 PT 17.6 H (12.2-14.9) Sec. INR 1.31 H (0.87-1.13) APTT 38.4 H (24.2-36.6) Sec. Sodium (137-145) mmol/L Potassium (3.6-5.0) mmol/L Chloride (98-107) mmol/L Creatinine (0.8-1.3) mg/dL Lactic Acid (0.7-2.0) mmol/L Albumin (3.9-5) g/dL Assessment and Plan - Patient Problems (1) Sepsis Current Visit: Yes Status: Acute Plan to address problem: Sepsis protocol: CBC, CMP, chest x-ray, urinalysis, IV fluid resuscitation therapy, IV antibiotic therapy, maintain mean arterial pressure greater than equal to 65, monitor fluid balance, serial lactic acid level, blood culture. (2) Acidosis Current Visit: Yes Status: Acute Plan to address problem: IV fluid resuscitation therapy, BMP, repeat BMP in a.m. (3) Atrial fibrillation Current Visit: Yes Status: Acute Qualifiers: Plan to address problem: Continue therapeutic anticoagulation with Eliquis (4) COPD (chronic obstructive pulmonary disease) Current Visit: Yes Status: Acute Plan to address problem: Supplemental oxygen, pulse oximetry, IV steroid therapy, supportive care, (5) Chronic respiratory failure Current Visit: Yes Status: Acute Qualifiers: Respiratory failure complication: hypoxia Qualified Code(s): J96.11 - Chronic respiratory failure with hypoxia Plan to address problem: Supplemental oxygen, pulse oximetry, nebulizer therapy, supportive care, non invasive positive pressure ventilation as clinically indicated. CTA chest ordered and is pending at time of admission. (6) DVT prophylaxis Current Visit: Yes Status: Acute Plan to address problem: SCD to bilateral lower extremities while in bed, continue therapeutic anticoagulation (7) Advance care planning Current Visit: Yes Status: Acute Plan to address problem: Disease education conducted, care plan discussed, diagnoses discussed, patient is full code, patient knowledges understanding and agreement with care plan, +30 minutes.
[2021-01-02] MEDS ORDERED: ONDANSETRON 4 MG/2 ML INJ IV PRN (17:15)
[2021-01-02] MEDS ORDERED: oxyCODONE /ACETAMINOPHEN 5-325MG TAB PO PRN (17:15)
[2021-01-02] MEDS ORDERED: NON-FORMULARY EACH (Simvastatin (Nf) 20 MG Tablet) PO SCH (17:15)
[2021-01-02] MEDS ORDERED: ACETAMINOPHEN 325 MG TAB PO PRN ×2 (17:15)
[2021-01-02] MEDS ORDERED: HYDROmorphone 1 MG/1 ML INJ IV PRN ×2 (17:15)
[2021-01-02] MEDS ORDERED: ALBUTEROL 2.5 MG/3 ML NEBU IH PRN (17:15)
[2021-01-02] MEDS ORDERED: CEFEPIME/NS 2 GM/100 ML 2 GM/100 ML BAG IV SCH (18:00)
--- NOTE | 2021-01-02 18:01 | Cat Scan Report ---
CTA CHEST WITH IV CONTRAST INDICATION: Acute onset chest pain with dyspnea TECHNIQUE: Axial CT images were obtained through the chest after injection of 100 mL IV contrast. 3 plane MIP re constructions were produced. All CT scans at this location are performed using CT dose reduction for ALARA by means of automated exposure control. COMPARISON: None available. FINDINGS: PULMONARY ARTERIES: No pulmonary emboli. AORTA AND ARTERIES: No acute abnormality. Extensive coronary artery calcification. MEDIASTINUM: Shotty mediastinal nodes throughout the mediastinum and both hilum. These nodes do not a ppear pathologically enlarged. LUNGS: Severe interstitial thickening predominantly basilar and posterior predominant. There is a. Fi ssural nodule measuring 10 mm in diameter within the right upper lobe.. ADDITIONAL FINDINGS: None. UPPER ABDOMEN: No acute findings. Cholelithiasis BONES: No significant osseous abnormality. IMPRESSION: 1. No CT evidence for pulmonary embolism. 2. Severe interstitial and peribronchial thickening throughout both lungs but predominantly within th e lung bases. It is unclear if this represents developing interstitial edema versus severe interstiti al pneumonia. 3. Focal 10 mm nodule identified at the junction of the right middle and right upper lobes. INCIDENTAL PULMONARY NODULE RECOMMENDATIONS Solid Nodule size >8 mm -- Single - Low Risk or High Risk Patient: Consider CT at 3 months, PET/CT, or tissue sampling Note These recommendations do not apply to lung cancer screening, patients with immunosuppression, o r patients with known primary cancer. Note Newly detected indeterminate nodule in persons 35 years of age or older. Persons under the age of 35 should not receive follow-up unless there is a known primary cancer. Low Risk Patient -- minimal or absent history of smoking and of other known risk factors. High Risk Patient -- history of smoking or of other known risk factors. Nodule dimensions are average of long and short axes, rounded to the nearest millimeter. Based on 2017 Fleischner Society Guidelines found in Radiology 2017 284:228-243. [email or web address] Signer Name: Dimitry Luevano MD Signed: 01/02/2021 5:57 PM Workstation Name: [id number]
[2021-01-02] MEDS ORDERED: NON-FORMULARY EACH (Apixaban 2.5 MG Tablet) PO SCH (22:00)
[2021-01-02] MEDS: BUDESONIDE 0.5 MG/2 ML NEBU IH SCH (22:03)
[2021-01-02] MEDS: APIXABAN 2.5 MG TAB PO SCH (22:37)
[2021-01-02] MEDS: PRAVASTATIN 80 MG TAB PO SCH (22:37)
[2021-01-02] MEDS: ZINC SULFATE 220 MG CAP PO SCH (22:37)
[2021-01-02] MEDS: AMIODARONE 200 MG TAB PO SCH (22:37)
[2021-01-02] MEDS: ASCORBIC ACID 500 MG TAB PO SCH (22:37)
[2021-01-02] MEDS: SODIUM CHLORIDE 0.9% 1000 ML 1,000 ML IV SCH (22:45)
[2021-01-03] MEDS: CEFEPIME/NS 2 GM/100 ML 2 GM/100 ML BAG IV SCH ×2 (02:51→14:00)
[2021-01-03 08:42] LABS: Basophils % (Auto) 0.5 % (0.0-1.8); Hematocrit 25.2 % (35.5-45.6); Hemoglobin 8.7 gm/dl (11.8-15.2); Lymphocytes # (Auto) 0.8 K/mm3 (1.2-5.4); Lymphocytes % (Auto) 16.2 % (13.4-35.0); Mean Corpuscular HGB Conc 34 % (32-34); Mean Corpuscular Volume 84 fl (84-94); Monocytes # (Auto) 0.1 K/mm3 (0.0-0.8); Monocytes % (Auto) 2.6 % (0.0-7.3); Platelet Count 318 K/mm3 (140-440); Red Blood Count 3.01 M/mm3 (3.65-5.03); Red Cell Distribution Width 18.5 % (13.2-15.2)
[2021-01-03 09:02] LABS: Alanine Aminotransferase 8 units/L (7-56); Blood Urea Nitrogen 10 mg/dL (9-20); Calcium 8.2 mg/dL (8.4-10.2); Hemolysis Index 0
[2021-01-03 09:07] LABS: BUN/Creatinine Ratio 17
[2021-01-03] MEDS: ASCORBIC ACID 500 MG TAB PO SCH ×2 (09:54→22:10)
[2021-01-03] MEDS: APIXABAN 2.5 MG TAB PO SCH ×2 (09:54→22:10)
[2021-01-03] MEDS: CHOLECALCIFEROL (VIT D3) 1000 UNIT (25 mcg) TAB PO SCH (09:54)
[2021-01-03] MEDS: AMIODARONE 200 MG TAB PO SCH (09:54)
[2021-01-03] MEDS: CLOPIDOGREL 75 MG TAB PO SCH (09:54)
[2021-01-03] MEDS: CETIRIZINE 10 MG TAB PO SCH (09:54)
[2021-01-03] MEDS: methylPREDNISolone Sod Succinate 40 MG/1 ML INJ IV SCH (09:54)
[2021-01-03] MEDS: ZINC SULFATE 220 MG CAP PO SCH ×2 (09:54→22:10)
[2021-01-03] MEDS ORDERED: NON-FORMULARY EACH (Loratadine (Nf) 10 MG Tablet) PO SCH (10:00)
[2021-01-03] MEDS: BUDESONIDE 0.5 MG/2 ML NEBU IH SCH ×2 (11:47→22:10)
--- NOTE | 2021-01-03 13:59 | Progress Note ---
Assessment and Plan Assessment and plan: 85 YO Male with COPD, Chronic Respiratory Failure on Home Oxygen, Atrial Fib on therapeutic anticoagulation with Eliquis, HTN, CT, CAD S/P Stent Placement presents to ED for evaluation. Patient reported "my blood pressure low". Patient states that he has experienced generalized weakness, decreased exercise tolerance over the past 2 days since his discharge from [facility]. Patient was seen and evaluated by his home care nurse and was found to have a systolic blood pressure in the 70s. EMS was notified and upon arrival the patient was found to be in distress and subsequent transported to [facility] for further care and evaluation of the aforementioned symptoms. The patient was seen and evaluated in the emergency department. All lab and imaging studies reviewed. The patient was found to be hypotensive with a systolic blood pressure in the 70s. Patient found to have clinical findings consistent with sepsis, acidosis. Patient initiated on sepsis protocol and treated with IV fluid resuscitation therapy as well as empiric IV antibiotic therapy. Patient admitted to medical floor and continued on sepsis protocol. Patient denies fever, chills, chest pain, palpitation, productive cough, skin rash, recent ill contact, or known exposure to COVID-19. Prior admission on 12/01/2016 reviewed. All medication listed at time of admission has been reconciled. Advanced care planning conducted in ED. 01/03 8TH HOSPITALIZATION THIS YEAR WAS AT [facility] FOR 10 DAYS FOLLOWING EVAL AT [facility] I discussed with the patient's daughter and he informs me that the patient has some warmth on bilateral lower ext with possible ulcers on HEEL and also Sacaral per the daughter,. she thinks there are some new medications including Losartan 25mg Po./ He is also on diltazem 180 milligrams all this appears to be different from what we have on record here. Will ask pharmacy to help me reconciling his medications. At this point we will hold all blood pressure medication we will monitor his atrial fibrillation. We will continue him on antibiotics for bilateral lower extremity cellulitis. Will obtain wound care evaluation in a.m. and if patient remains stable will probably plan for discharge. I also consulted cardiology per the patient's request to help with case management (1) systemic inflammatory response syndrome secondary to bilateral lower extremity cellulitis with no fever or evidence of sepsis Current Visit: Yes Status: Acute Plan to address problem: Sepsis protocol: CBC, CMP, chest x-ray, urinalysis, IV fluid resuscitation therapy, IV antibiotic therapy, maintain mean arterial pressure greater than equal to 65, monitor fluid balance, serial lactic acid level, blood culture. (2) Acidosis Current Visit: Yes Status: Acute Plan to address problem: IV fluid resuscitation therapy, BMP, repeat BMP in a.m. (3) Atrial fibrillation Current Visit: Yes Status: Acute Qualifiers: Plan to address problem: Continue therapeutic anticoagulation with Eliquis (4) COPD (chronic obstructive pulmonary disease) Current Visit: Yes Status: Acute Plan to address problem: Supplemental oxygen, pulse oximetry, IV steroid therapy, supportive care, (5) Chronic respiratory failure Current Visit: Yes Status: Acute Qualifiers: Respiratory failure complication: hypoxia Qualified Code(s): J96.11 - Chronic respiratory failure with hypoxia Plan to address problem: Supplemental oxygen, pulse oximetry, nebulizer therapy, supportive care, noninvasive positive pressure ventilation as clinically indicated. CTA chest ordered and is pending at time of admission. (6) bilateral heel ulcer and sacral pressure ulcer stage I (7) DVT prophylaxis Current Visit: Yes Status: Acute Plan to address problem: SCD to bilateral lower extremities while in bed, continue therapeutic anticoagulation (8) Advance care planning Current Visit: Yes Status: Acute Plan to address problem: Disease education conducted, care plan discussed, diagnoses discussed, patient is full code, patient knowledges understanding and agreement with care plan, +30 minutes. Hospitalist Physical - Physical exam Narrative exam: VITAL SIGNS: Reviewed. GENERAL: The patient appears normally developed, debilitated vital signs as documented. HEAD: No signs of head trauma. EYES: Pupils are equal. Extraocular motions intact. EARS: Hearing grossly intact. MOUTH: Oropharynx is normal. NECK: No adenopathy, no JVD. CHEST: Chest with the diminished breath sounds bilaterally. No wheezes, rales, or rhonchi. CARDIAC: Irregularly irregular rate and rhythm rate control. S1 and S2, without murmurs, gallops, or rubs. VASCULAR: No Edema. Peripheral pulses normal and equal in all extremities. ABDOMEN: Soft, non tender and non distended. No rebound or guarding, and no masses palpated. Bowel Sounds normal. MUSCULOSKELETAL: Good range of motion of all major joints. Extremities without clubbing, cyanosis or edema. NEUROLOGIC EXAM: Alert and oriented x 3 No focal sensory or strength deficits. Speech normal. Follows commands. PSYCHIATRIC: Mood normal. SKIN: Bilateral heel ulceration detail exam as documented in skin assessment - Constitutional Vitals: Temp Pulse Resp BP Pulse Ox 98.7 F 100 H 19 104/55 93 01/03/21 12:16 01/03/21 12:16 01/03/21 12:16 01/03/21 12:16 01/03/21 12:16 General appearance: Present: mild distress HEART Score - HEART Score Troponin: Troponin T 0.017 ng/mL (0.00-0.029) 01/02/21 12:12 Results - Labs CBC & Chem 7: 01/03/21 07:55 01/03/21 07:55 Labs: Laboratory Last Values WBC 4.9 K/mm3 (4.5-11.0) 01/03/21 07:55 RBC 3.01 M/mm3 (3.65-5.03) L 01/03/21 07:55 Hgb 8.7 gm/dl (11.8-15.2) L 01/03/21 07:55 Hct 25.2 % (35.5-45.6) L D 01/03/21 07:55 MCV 84 fl (84-94) 01/03/21 07:55 MCH 29 pg (28-32) 01/03/21 07:55 MCHC 34 % (32-34) 01/03/21 07:55 RDW 18.5 % (13.2-15.2) H 01/03/21 07:55 Plt Count 318 K/mm3 (140-440) 01/03/21 07:55 Lymph % (Auto) 16.2 % (13.4-35.0) 01/03/21 07:55 [place] % (Auto) 2.6 % (0.0-7.3) 01/03/21 07:55 Eos % (Auto) 0.0 % (0.0-4.3) 01/03/21 07:55 Baso % (Auto) 0.5 % (0.0-1.8) 01/03/21 07:55 Lymph # (Auto) 0.8 K/mm3 (1.2-5.4) L 01/03/21 07:55 [place] # (Auto) 0.1 K/mm3 (0.0-0.8) 01/03/21 07:55 Eos # (Auto) 0.0 K/mm3 (0.0-0.4) 01/03/21 07:55 Baso # (Auto) 0.0 K/mm3 (0.0-0.1) 01/03/21 07:55 Seg Neutrophils % 80.7 % (40.0-70.0) H 01/03/21 07:55 Seg Neutrophils # 3.9 K/mm3 (1.8-7.7) 01/03/21 07:55 PT 17.6 Sec. (12.2-14.9) H 01/02/21 12:12 INR 1.31 (0.87-1.13) H 01/02/21 12:12 APTT 38.4 Sec. (24.2-36.6) H 01/02/21 12:12 Sodium 136 mmol/L (137-145) L 01/03/21 07:55 Potassium 3.6 mmol/L (3.6-5.0) 01/03/21 07:55 Chloride 100.7 mmol/L (98-107) 01/03/21 07:55 Carbon Dioxide 24 mmol/L (22-30) 01/03/21 07:55 Anion Gap 15 mmol/L 01/03/21 07:55 BUN 10 mg/dL (9-20) 01/03/21 07:55 Creatinine 0.6 mg/dL (0.8-1.3) L 01/03/21 07:55 Estimated GFR > 60 ml/min 01/03/21 07:55 BUN/Creatinine Ratio 17 % 01/03/21 07:55 Glucose 176 mg/dL (75-100) H 01/03/21 07:55 POC Glucose 170 mg/dL (70-105) H 01/03/21 12:15 Lactic Acid 1.80 mmol/L (0.7-2.0) 01/03/21 07:55 Calcium 8.2 mg/dL (8.4-10.2) L 01/03/21 07:55 Total Bilirubin 0.20 mg/dL (0.1-1.2) 01/03/21 07:55 AST 12 units/L (5-40) 01/03/21 07:55 ALT 8 units/L (7-56) 01/03/21 07:55 Alkaline Phosphatase 91 units/L (35-129) 01/03/21 07:55 Troponin T 0.017 ng/mL (0.00-0.029) 01/02/21 12:12 Total Protein 6.0 g/dL (6.3-8.2) L 01/03/21 07:55 Albumin 3.0 g/dL (3.9-5) L 01/03/21 07:55 Albumin/Globulin Ratio 1.0 % 01/03/21 07:55 Urine Color Straw (Yellow) 01/02/21 Unknown Urine Turbidity Clear (Clear) 01/02/21 Unknown Urine pH 7.0 (5.0-7.0) 01/02/21 Unknown Ur Specific [place] 1.003 (1.003-1.030) 01/02/21 Unknown Urine Protein <15 mg/dl mg/dL (Negative) 01/02/21 Unknown Urine Glucose (UA) Neg mg/dL (Negative) 01/02/21 Unknown Urine Ketones Neg mg/dL (Negative) 01/02/21 Unknown Urine Blood Neg (Negative) 01/02/21 Unknown Urine Nitrite Neg (Negative) 01/02/21 Unknown Urine Bilirubin Neg (Negative) 01/02/21 Unknown Urine Urobilinogen < 2.0 mg/dL (<2.0) 01/02/21 Unknown Ur Leukocyte Esterase Neg (Negative) 01/02/21 Unknown Urine WBC (Auto) < 1.0 /HPF (0.0-6.0) 01/02/21 Unknown Urine RBC (Auto) 1.0 /HPF (0.0-6.0) 01/02/21 Unknown Blood Type O NEGATIVE 01/02/21 17:45 Antibody Screen Negative 01/02/21 17:45 Microbiology: Microbiology 01/02/21 12:12 Peripheral/Venous Blood Culture - Preliminary NO GROWTH AFTER 24 HOURS 01/02/21 12:12 Peripheral/Venous Blood Culture - Preliminary NO GROWTH AFTER 24 HOURS Doe/IV: Voiding Method Urinal Active Medications - Current Medications Current Medications: Generic Name Dose Route Start Last Admin Trade Name Freq PRN Reason Stop Dose Admin Acetaminophen 650 mg 01/02/21 17:15 Acetaminophen 325 Mg Tab PO Q4H PRN Pain MILD(1-3)/Fever >100.5/KOWALSKI Albuterol 2.5 mg 01/02/21 17:15 Albuterol 2.5 Mg/3 Ml Nebu IH Q4HRT PRN Shortness Of Breath Amiodarone HCl 200 mg 01/02/21 22:00 01/03/21 09:54 Amiodarone 200 Mg Tab PO 200 mg BID ANJU Administration Apixaban 2.5 mg 01/02/21 22:00 01/03/21 09:54 Apixaban 2.5 Mg Tab PO 2.5 mg Q12HR ANJU Administration Ascorbic Acid 500 mg 01/02/21 22:00 01/03/21 09:54 Ascorbic Acid 500 Mg Tab PO 500 mg BID ANJU Administration Budesonide 0.5 mg 01/02/21 20:00 01/03/21 11:47 Budesonide 0.5 Mg/2 Ml Nebu IH 0.5 mg BIDRT ANJU Administration Cetirizine HCl 10 mg 01/03/21 10:00 01/03/21 09:54 Cetirizine 10 Mg Tab PO 10 mg DAILY ANJU Administration Cholecalciferol 1,000 unit 01/03/21 10:00 01/03/21 09:54 Cholecalciferol (Vit D3) 1000 Unit (25 Mcg) Tab PO 1,000 unit QDAY ANJU Administration Clopidogrel Bisulfate 75 mg 01/03/21 10:00 01/03/21 09:54 Clopidogrel 75 Mg Tab PO 75 mg DAILY ANJU Administration Hydromorphone HCl 0.25 mg 01/02/21 17:15 Hydromorphone 1 Mg/1 Ml Inj IV Q4H PRN Pain, Moderate (4-6) Hydromorphone HCl 0.5 mg 01/02/21 17:15 Hydromorphone 1 Mg/1 Ml Inj IV Q23H PRN Pain , Severe (7-10) Sodium Chloride 1,000 mls @ 150 mls/hr 01/02/21 14:15 01/02/21 22:45 Nacl 0.9% 1000 Ml IV 150 mls/hr DIRECT ANJU Administration Vancomycin HCl 1,500 mg/ 530 mls @ 265 mls/hr 01/03/21 14:00 Sodium Chloride IV Q24H ANJU Cefepime HCl 2 gm in 100 mls @ 200 mls/hr 01/03/21 02:00 01/03/21 02:51 Cefepime/Ns 2 Gm/100 Ml IV 200 mls/hr Q12H ANJU Administration Protocol Methylprednisolone Sodium Succinate 40 mg 01/03/21 10:00 01/03/21 09:54 Methylprednisolone Sod Succinate 40 Mg/1 Ml Inj IV 40 mg Q24H ANJU Administration Ondansetron HCl 4 mg 01/02/21 17:15 Ondansetron 4 Mg/2 Ml Inj IV Q8H PRN Nausea And Vomiting Oxycodone/Acetaminophen 1 tab 01/02/21 17:15 Oxycodone /Acetaminophen 5-325mg Tab PO Q16H PRN Pain, Moderate (4-6) Pravastatin Sodium 80 mg 01/02/21 22:00 01/02/21 22:37 Pravastatin 80 Mg Tab PO 80 mg QHS ANJU Administration Sodium Chloride 10 ml 01/02/21 22:00 01/03/21 09:54 Sodium Chloride 0.9% 10 Ml Flush Syringe IV 10 ml BID ANJU Administration Sodium Chloride 10 ml 01/02/21 17:15 Sodium Chloride 0.9% 10 Ml Flush Syringe IV PRN PRN LINE FLUSH Zinc Sulfate 220 mg 01/02/21 22:00 01/03/21 09:54 Zinc Sulfate 220 Mg Cap PO 220 mg BID ANJU Administration
[2021-01-03] MEDS: VANCOMYCIN 1,500 MG in SODIUM CHLORIDE 0.9% 500 ML 500 ML IV SCH (14:00)
[2021-01-03] MEDS: SODIUM CHLORIDE 0.9% 1000 ML 1,000 ML IV SCH ×2 (14:01→14:15)
[2021-01-03] MEDS: PRAVASTATIN 80 MG TAB PO SCH (22:10)
[2021-01-04] MEDS: SODIUM CHLORIDE 0.9% 1000 ML 1,000 ML IV SCH ×2 (02:15→11:02)
[2021-01-04] MEDS: CEFEPIME/NS 2 GM/100 ML 2 GM/100 ML BAG IV SCH ×2 (02:25→15:46)
--- NOTE | 2021-01-04 08:57 | Discharge Summary ---
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 Patient reported "my blood pressure low". Patient states that he has experienced generalized weakness, decreased exercise tolerance over the past 2 days since his discharge from [facility]. Patient was seen and evaluated by his home care nurse and was found to have a systolic blood pressure in the 70s. EMS was notified and upon arrival the patient was found to be in distress and subsequent transported to [facility] for further care and evaluation of the aforementioned symptoms. The patient was seen and evaluated in the emergency department. All lab and imaging studies reviewed. The patient was found to be hypotensive with a systolic blood pressure in the 70s. Patient found to have clinical findings consistent with sepsis, acidosis. Patient initiated on sepsis protocol and treated with IV fluid resuscitation therapy as well as empiric IV antibiotic therapy. Patient admitted to medical floor and continued on sepsis protocol. Patient denies fever, chills, chest pain, palpitation, productive cough, skin rash, recent ill contact, or known exposure to COVID-19. Prior admission on 12/01/2016 reviewed. All medication listed at time of admission has been reconciled. Advanced care planning conducted in ED. 01/03 8TH HOSPITALIZATION THIS YEAR WAS AT [facility] FOR 10 DAYS FOLLOWING EVAL AT [facility] I discussed with the patient's daughter and he informs me that the patient has some warmth on bilateral lower ext with possible ulcers on HEEL and also Sacaral per the daughter,. she thinks there are some new medications including Losartan 25mg Po./ He is also on diltazem 180 milligrams all this appears to be different from what we have on record here. Will ask pharmacy to help me reconciling his medications. At this point we will hold all blood pressure medication we will monitor his atrial fibrillation. We will continue him on antibiotics for bilateral lower extremity cellulitis. Will obtain wound care evaluation in a.m. and if patient remains stable will probably plan for discharge. I also consulted cardiology per the patient's request to help with case management 01/04: Patient's blood pressure has normalized today. Patient has underlying atrial fibrillation I have discontinued losartan. He continues on diltiazem and will follow with cardiology for further evaluation outpatient. (1) systemic inflammatory response syndrome secondary to bilateral lower extremity cellulitis with no fever or evidence of sepsis Current Visit: Yes Status: Acute Plan to address problem: Sepsis protocol: CBC, CMP, chest x-ray, urinalysis, IV fluid resuscitation therapy, IV antibiotic therapy, maintain mean arterial pressure greater than equal to 65, monitor fluid balance, serial lactic acid level, blood culture. (2) Acidosis Current Visit: Yes Status: Acute Plan to address problem: IV fluid resuscitation therapy, BMP, repeat BMP in a.m. (3) Atrial fibrillation Current Visit: Yes Status: Acute Qualifiers: Plan to address problem: Continue therapeutic anticoagulation with Eliquis (4) COPD (chronic obstructive pulmonary disease) Current Visit: Yes Status: Acute Plan to address problem: Supplemental oxygen, pulse oximetry, IV steroid therapy, supportive care, (5) Chronic respiratory failure Current Visit: Yes Status: Acute Qualifiers: Respiratory failure complication: hypoxia Qualified Code(s): J96.11 - Chronic respiratory failure with hypoxia Plan to address problem: Supplemental oxygen, pulse oximetry, nebulizer therapy, supportive care, noninvasive positive pressure ventilation as clinically indicated. CTA chest ordered and is pending at time of admission. (6) bilateral heel ulcer and sacral pressure ulcer stage I Disposition: 06 [facility] Final Discharge Diagnosis (Prints w/discharge instructions): Systemic inflammatory response syndrome with hypotension complicated by atrial fibrillation Time spent for discharge: 35 minutes Core Measure Documentation - Palliative Care Palliative Care/ Comfort Measures: Not Applicable - Core Measures Any of the following diagnoses?: none Exam - Physical Exam Narrative exam: VITAL SIGNS: Reviewed. GENERAL: The patient appears normally developed, debilitated vital signs as documented. HEAD: No signs of head trauma. EYES: Pupils are equal. Extraocular motions intact. EARS: Hearing grossly intact. MOUTH: Oropharynx is normal. NECK: No adenopathy, no JVD. CHEST: Chest with the diminished breath sounds bilaterally. No wheezes, rales, or rhonchi. CARDIAC: Irregularly irregular rate and rhythm rate control. S1 and S2, without murmurs, gallops, or rubs. VASCULAR: No Edema. Peripheral pulses normal and equal in all extremities. ABDOMEN: Soft, non tender and non distended. No rebound or guarding, and no masses palpated. Bowel Sounds normal. MUSCULOSKELETAL: Good range of motion of all major joints. Extremities without clubbing, cyanosis or edema. NEUROLOGIC EXAM: Alert and oriented x 3 No focal sensory or strength deficits. Speech normal. Follows commands. PSYCHIATRIC: Mood normal. SKIN: Bilateral heel ulceration detail exam as documented in skin assessment - Constitutional Vitals: Temp Pulse Resp BP Pulse Ox 97.7 F 115 H 20 142/93 89 01/04/21 05:49 01/04/21 05:49 01/04/21 05:49 01/04/21 05:49 01/04/21 05:49 Plan Activity: advance as tolerated, fall precautions Diet: low salt Special Instructions: record daily weights, record daily BP diary Plan of Treatment: Patient to hold losartan untill seen by cardiology Keep a BP diary and share with primary doctors and lead retail sales associate Follow up with: RUPERTO GARCIA MD [Primary Care Provider] - 7 Days RODRIGO KEY MD [Staff Physician] - 7 Days Prescriptions: cephALEXin [Keflex] 250 mg PO Q6HR #14 capsule
[2021-01-04] MEDS: BUDESONIDE 0.5 MG/2 ML NEBU IH SCH (09:44)
[2021-01-04] MEDS: CETIRIZINE 10 MG TAB PO SCH (10:59)
[2021-01-04] MEDS: ASCORBIC ACID 500 MG TAB PO SCH (10:59)
[2021-01-04] MEDS: CLOPIDOGREL 75 MG TAB PO SCH (10:59)
[2021-01-04] MEDS: ZINC SULFATE 220 MG CAP PO SCH (10:59)
[2021-01-04] MEDS: CHOLECALCIFEROL (VIT D3) 1000 UNIT (25 mcg) TAB PO SCH (10:59)
[2021-01-04] MEDS: APIXABAN 2.5 MG TAB PO SCH (11:00)
[2021-01-04] MEDS: methylPREDNISolone Sod Succinate 40 MG/1 ML INJ IV SCH (11:01)
[2021-01-04 12:26] VITALS: BP 141/75
--- NOTE | 2021-01-04 13:23 | Consultation ---
History of Present Illness Consult date: 01/04/21 Consult reason: hypotension History of present illness: The patient is a 85-year-old man with oxygen dependent, severe COPD. He also has coronary artery disease and underwent coronary stenting several years ago. He has paroxysmal atrial fibrillation on chronic oral anticoagulation with Eliquis. He is admitted to the hospital at this time because he was found with a low blood pressure while being evaluated by his home health care nurse. On presentation to the emergency room, the blood pressure was 79. Patient was largely asymptomatic, and blood pressure has normalized with conservative management in the hospital. A review of his records does not properly document his medications prior to this visit. Within the past week, it was reported that he was also hospitalized at [facility], similarly for hypotension. It is uncertain if there were any adjustments to his medications during that visit as well. EKG here is sinus rhythm with nonspecific ST and T wave changes. Past History Past Medical History: atrial fib, CAD, COPD, hypertension, other (See HPI) Past Surgical History: Other (Cardiac stent placement) Social history: . denies: smoking, alcohol abuse Family history: hypertension Medications and Allergies Allergies Allergy/AdvReac Type Severity Reaction Status Date / Time No Known Allergies Allergy Verified 10/26/13 18:06 Home Medications Medication Instructions Recorded Confirmed Last Taken Type Fluticasone [Flonase] 1 spray NS QDAY 10/28/16 01/04/21 01/01/21 History Albuterol Sulfate [Proair 90 mcg IH Q4HR PRN #2 [email or web address] 12/17/17 01/04/21 Unknown Rx Respiclick] ALBUTEROL NEB's [Proventil 0.083% 2.5 mg IH TID PRN 01/04/21 01/04/21 01/01/21 History NEBS] Apixaban [Eliquis] 2.5 mg PO Q12HR tablet 01/04/21 Unknown Rx Apixaban [Eliquis] 5 mg PO BID 01/04/21 01/04/21 01/01/21 History Ascorbic Acid [Vitamin C] 500 mg PO BID tablet 01/04/21 Unknown Rx AtorvaSTATin [Lipitor] 20 mg PO QHS 01/04/21 01/04/21 12/31/20 History Budesonide [Pulmicort Respules] 0.5 mg IH BIDRT nebu 01/04/21 Unknown Rx Cholecalciferol Vit D3 [Vitamin D3 1,000 unit PO QDAY tablet 01/04/21 Unknown Rx 1,000 UNIT TAB] Clopidogrel [Plavix] 75 mg PO DAILY tablet 01/04/21 Unknown Rx Cyanocobalamin (Vitamin B-12) 1,000 mcg SL QDAY 01/04/21 01/04/21 01/01/21 History [Vitamin B-12] Multivit-Min/FA/Lycopen/Lutein 1 each PO QDAY 01/04/21 01/04/21 01/01/21 History [Centrum Silver Tablet] Nystatin [Nystop Powder] 1 applicatio TP TID 01/04/21 01/04/21 01/01/21 History Pantoprazole [Protonix TAB] 40 mg PO QDAY 01/04/21 01/04/21 01/01/21 History Sodium Chloride [Saline Nasal 1 spray NS PRN PRN 01/04/21 01/04/21 01/01/21 H istory Harrold] Thiamine [Vitamin B-1] 100 mg PO QDAY 01/04/21 01/04/21 01/01/21 History Tiotropium Br/Olodaterol HCl 2 puff IH QDAY 01/04/21 01/04/21 01/01/21 History [Stiolto Respimat Inhal Harrold] Zinc Sulfate 220 mg PO BID capsule 01/04/21 Unknown Rx cephALEXin [Keflex] 250 mg PO Q6HR #14 capsule 01/04/21 Unknown Rx dilTIAZem HCl [Diltiazem 24Hr ER 180 mg PO QDAY 01/04/21 01/04/21 01/01/21 History (Cd)] Active Meds: Active Medications Acetaminophen (Acetaminophen 325 Mg Tab) 650 mg PO Q4H PRN PRN Reason: Pain MILD(1-3)/Fever >100.5/KOWALSKI Albuterol (Albuterol 2.5 Mg/3 Ml Nebu) 2.5 mg IH Q4HRT PRN PRN Reason: Shortness Of Breath Apixaban (Apixaban 2.5 Mg Tab) 2.5 mg PO Q12HR ANJU Last Admin: 01/04/21 11:00 Dose: 2.5 mg Documented by: Ascorbic Acid (Ascorbic Acid 500 Mg Tab) 500 mg PO BID ANJU Last Admin: 01/04/21 10:59 Dose: 500 mg Documented by: Budesonide (Budesonide 0.5 Mg/2 Ml Nebu) 0.5 mg IH BIDRT [facility] [place] Last Admin: 01/04/21 09:44 Dose: 0.5 mg Documented by: Cetirizine HCl (Cetirizine 10 Mg Tab) 10 mg PO DAILY [facility] [place] Last Admin: 01/04/21 10:59 Dose: 10 mg Documented by: Cholecalciferol (Cholecalciferol (Vit D3) 1000 Unit (25 Mcg) Tab) 1,000 unit PO QDAY [facility] [place] Last Admin: 01/04/21 10:59 Dose: 1,000 unit Documented by: Clopidogrel Bisulfate (Clopidogrel 75 Mg Tab) 75 mg PO DAILY [facility] [place] Last Admin: 01/04/21 10:59 Dose: 75 mg Documented by: Hydromorphone HCl (Hydromorphone 1 Mg/1 Ml Inj) 0.25 mg IV Q4H PRN PRN Reason: Pain, Moderate (4-6) Hydromorphone HCl (Hydromorphone 1 Mg/1 Ml Inj) 0.5 mg IV Q23H PRN PRN Reason: Pain , Severe (7-10) Sodium Chloride (Nacl 0.9% 1000 Ml) 1,000 mls @ 150 mls/hr IV DIRECT [facility] [place] Last Admin: 01/04/21 11:02 Dose: 150 mls/hr Documented by: Vancomycin HCl 1,500 mg/ (Sodium Chloride) 530 mls @ 265 mls/hr IV Q24H [facility] [place] Last Admin: 01/03/21 14:00 Dose: 265 mls/hr Documented by: Cefepime HCl (Cefepime/Ns 2 Gm/100 Ml) 2 gm in 100 mls @ 200 mls/hr IV Q12H [facility] [place]; Protocol Last Admin: 01/04/21 02:25 Dose: 200 mls/hr Documented by: Methylprednisolone Sodium Succinate (Methylprednisolone Sod Succinate 40 Mg/1 Ml Inj) 40 mg IV Q24H [facility] [place] Last Admin: 01/04/21 11:01 Dose: 40 mg Documented by: Ondansetron HCl (Ondansetron 4 Mg/2 Ml Inj) 4 mg IV Q8H PRN PRN Reason: Nausea And Vomiting Oxycodone/Acetaminophen (Oxycodone /Acetaminophen 5-325mg Tab) 1 tab PO Q16H PRN PRN Reason: Pain, Moderate (4-6) Pravastatin Sodium (Pravastatin 80 Mg Tab) 80 mg PO QHS [facility] [place] Last Admin: 01/03/21 22:10 Dose: 80 mg Documented by: Sodium Chloride (Sodium Chloride 0.9% 10 Ml Flush Syringe) 10 ml IV BID [facility] [place] Last Admin: 01/04/21 11:00 Dose: 10 ml Documented by: Sodium Chloride (Sodium Chloride 0.9% 10 Ml Flush Syringe) 10 ml IV PRN PRN PRN Reason: LINE FLUSH Zinc Sulfate (Zinc Sulfate 220 Mg Cap) 220 mg PO BID [facility] [place] Last Admin: 01/04/21 10:59 Dose: 220 mg Documented by: Review of Systems Cardiovascular: shortness of breath, no chest pain, no orthopnea, no palpitations, no rapid/irregular heart beat, no edema, no syncope, no lightheadedness Physical Examination Vital Signs Pulse Resp Pulse Ox 90 29 H 96 01/02/21 10:43 01/02/21 10:43 01/02/21 10:43 General appearance: no acute distress, other (Patient has chronic mouth breathing on account of his severe ambulatory oxygen dependent COPD) HEENT: Positive: PERRL Neck: Positive: neck supple Cardiac: Positive: Reg Rate and Rhythm Lungs: Positive: Decreased Breath Sounds Neuro: Positive: Grossly Intact Abdomen: Positive: Soft Male genitourinary: Positive: deferred Skin: Positive: Clear Extremities: Absent: edema Results 01/03/21 07:55 01/03/21 07:55 EKG interpretations - Telemetry EKG Rhythm: Sinus Rhythm Assessment and Plan - Patient Problems (1) Hypotension Current Visit: Yes Status: Acute Plan to address problem: Patient was largely asymptomatic on presentation, with low blood pressure recorded by the home health care nurse. His ambulatory medication profile is not currently available for review, but blood pressure has normalized on conservative management in the hospital. Recommend optimal hydration, and discontinuation of any home blood pressure medications. No further cardiac work-up is indicated. Recommend close outpatient follow-up, patient to see us in the office in 3 to 5 days post discharge.
[2021-01-04] MEDS: VANCOMYCIN 1,500 MG in SODIUM CHLORIDE 0.9% 500 ML 500 ML IV SCH (15:46)
--- NOTE | 2021-01-09 14:24 | Electrocardiograph Report ---
[facility] Test Date: 2021-01-02 Test Time: 11:26:34 Pat Name: NELLY ROQUE Department: Room: A389 Gender: M Dietician: SUMAYA : 1935 Requested By: DANNY RUIZ Order Number: [id number] Reading MD: Cordell Ramirez Measurements Intervals [place] Rate: 78 P: 71 LA: 270 QRS: 23 QRSD: 104 T: 12 QT: 405 QTc: 465 Interpretive Statements Atrial flutter with variable AV conduction Or multifocal atrial rhythm Compared to ECG 09/12/2020 11:28:13 No significant change Electronically Signed On 01-09-2021 14:24:22 EDT by Cordell Ramirez
== END 2021-01-04 16:30 | disposition home health service (06) | DRG 309 ==
LOC: ED 10:35 → 3A 17:15
PROVIDERS: ADMIT Internal Medicine; ATTEND Internal Medicine
DX: I48.91 Unspecified atrial fibrillation (principal); J96.11 Chronic respiratory failure with hypoxia; J44.1 Chronic obstructive pulmonary disease with (acute) exacerbation; L03.116 Cellulitis of left lower limb; L03.115 Cellulitis of right lower limb; E87.2 Acidosis; R65.10 Systemic inflammatory response syndrome (SIRS) of non-infectious origin without acute organ dysfunction; Z20.822 Contact with and (suspected) exposure to COVID-19; I10 Essential (primary) hypertension; E87.6 Hypokalemia; I25.10 Atherosclerotic heart disease of native coronary artery without angina pectoris; I25.2 Old myocardial infarction; L89.151 Pressure ulcer of sacral region, stage 1; L89.621 Pressure ulcer of left heel, stage 1; Z79.01 Long term (current) use of anticoagulants; L89.611 Pressure ulcer of right heel, stage 1
CPT/HCPCS: 36415; 71045; 71275; 80053; 81001; 82140; 82962; 84484; 85025; 85610; 85730; 86850; 86900; 86901; 87040; 93005; 94640; 94644; 94760; G0378; J0692; J2920; J2930; J3370; J7030; J7040; Q9967; U0003